=== PATIENT | female | born 1950 | race Caucasian/White ===

== ENCOUNTER → 2019-08-11 13:03 | Outpatient (BNVA) | payer MEDICARE, BC, SELFPAY | PROVIDERS: PCP Nurse Practitioner Family; Visit Provider Surgery | DX: R10.2 Pelvic and perineal pain (principal); R19.4 Change in bowel habit; Z86.010 Personal history of colon polyps; Z85.118 Personal history of other malignant neoplasm of bronchus and lung; Z90.2 Acquired absence of lung [part of] | CPT/HCPCS: 99202; 99213 ==

== ENCOUNTER → 2019-10-20 13:32 | Outpatient (BNVA) | payer MEDICARE, BC, SELFPAY | PROVIDERS: PCP Nurse Practitioner Family; Referring Provider Nurse Practitioner Family; Visit Provider Surgery | DX: R19.4 Change in bowel habit (principal); Z86.010 Personal history of colon polyps; Z72.0 Tobacco use; K21.9 Gastro-esophageal reflux disease without esophagitis; I10 Essential (primary) hypertension | CPT/HCPCS: 99212; 99441 ==

== ENCOUNTER 2020-03-10 04:43 | Outpatient (CLI) | payer MEDICARE, BC, SELFPAY ==
--- NOTE | 2020-03-10 09:19 | DI.RAD_ITS ---
EXAM: XR HIP PELVIS ADULT BL CLINICAL HISTORY: BILAT HIP PAIN TECHNIQUE: 2D digital imaging was performed. COMPARISON: No exams were available for comparison FINDINGS: Right hip joint space shows mild narrowing. There is mild to moderate periarticular spurring. There is severe narrowing of the left hip joint space. There is prominent periarticular spurring as well as subchondral cyst formation on both sides of the joint. The SI joints and pubic symphysis are unre markable. The sacrum is mainly obscured by overlying bowel gas. IMPRESSION: Severe degenerative changes of the left hip. [id number] degenerative changes of the right hip.
== END 2020-03-10 05:03 ==
PROVIDERS: PCP Nurse Practitioner Family; Visit Provider Neuromusculoskeletal Medicine & OMM
DX: M16.0 Bilateral primary osteoarthritis of hip (principal)
CPT/HCPCS: 73521

== ENCOUNTER 2020-03-20 14:11 | Outpatient (CLI) | payer MEDICARE, BC, SELFPAY ==
--- NOTE | 2020-03-20 11:15 | DI.RAD_ITS ---
EXAM: XR PELVIS AP CLINICAL HISTORY: left hip DJD; preop planning. TECHNIQUE: 2D digital imaging was performed. COMPARISON: No exams were available for comparison FINDINGS: BONES: No acute fracture is present. No bony destructive lesion is seen. JOINTS: No dislocation present. Marked degenerative changes are seen in the left hip characterized by joint space narrowing, subchondral sclerosis and cysts and periarticular spurring. Right hip is wel l maintained. SOFT TISSUE: Normal. IMPRESSION: Marked osteoarthritis of the left hip. DATA REPOSITORY: RADIATION DOSE DELIVERED:
== END 2020-03-20 14:31 ==
PROVIDERS: PCP Nurse Practitioner Family; Referring Provider Nurse Practitioner Family; Visit Provider Student in an Organized Health Care Education/Training Program
DX: M16.12 Unilateral primary osteoarthritis, left hip (principal); Z01.818 Encounter for other preprocedural examination
CPT/HCPCS: 72170

== ENCOUNTER 2020-04-27 05:09 | Outpatient (CLI) | payer MEDICARE, BC, SELFPAY ==
[2020-04-27 10:51] LABS: Abs Immature Grans 0.02 10^3/uL (0.0-0.06); Absolute Basophil Count 0.05 10^3/uL (0.0-0.2); Absolute Eosinophil Count 0.19 10^3/uL (0.0-0.7); Absolute Lymphocyte Count 1.32 10^3/uL (1.2-3.4); Absolute Monocyte Count 0.38 10^3/uL (0.1-0.8); Absolute Neutrophil Count 3.88 10^3/uL (1.2-6.7); Basophils % 0.9; Eosinophils % 3.3; HCT 37.4 % (36.0-46.0); HGB 12.4 g/dL (11.2-15.7); Immature Grans % 0.3; Lymphocytes % 22.6; MCH 29.3 pg (27.0-33.0); MCHC 33.2 % (32.0-36.0); MCV 88.4 fL (80-95); MPV 8.6 fL (8.0-11.0); Monocytes % 6.5; Neutrophils % 66.4; Nucleated RBC 0 %; Platelet Count 314 10^3/uL (130-400); RBC 4.23 10^6/uL (3.93-5.22); RDW 13.3 % (11.7-14.6); RDW-SD 43.3 fL; WBC 5.84 10^3/uL (4.4-10.8)
[2020-04-27 11:24] LABS: ALT 21 U/L (14-59); AST 15 U/L (15-37); Albumin 3.6 g/dL (3.4-5.0); Alkaline Phosphatase 142 U/L (46-116); Anion Gap 5.4 mmol/L (3-11); BUN 9 mg/dL (7-18); Bilirubin, Total 0.3 mg/dL (0.2-1.0); CO2 26.6 mmol/L (21.0-32.0); CREATININE 0.89 mg/dL (0.55-1.02); Calcium 9.5 mg/dL (8.5-10.1); Chloride 102 mmol/L (98-107); FREE T4 1.05 ng/dL (0.76-1.46); Glucose 107 mg/dL (74-106); Magnesium 2.1 mg/dL (1.8-2.4); Sodium 134 mmol/L (136-145); TSH 0.96 uIU/mL (0.36-3.74); Total Protein 6.5 g/dL (6.4-8.2)
== END 2020-04-27 05:29 ==
PROVIDERS: PCP Nurse Practitioner Family; Visit Provider Internal Medicine Medical Oncology
DX: C34.91 Malignant neoplasm of unspecified part of right bronchus or lung (principal); R93.89 Abnormal findings on diagnostic imaging of other specified body structures
CPT/HCPCS: 36415; 80053; 83735; 84439; 84443; 85025

== ENCOUNTER 2020-05-08 11:35 | Outpatient (REF) | payer MEDICARE, BC, SELFPAY ==
[2020-05-08 12:28] LABS: Bilirubin Negative (Negative); Blood Trace-lysed (Negative); Clarity Clear (Clear); Glucose Negative (Negative); Ketones Negative (Negative); Leukocyte Esterase Trace (Negative); Nitrite Negative (Negative); Specific Gravity 1.015 (1.005-1.025); Urobilinogen 0.2 EU/dL (Up TO 0.2)
[2020-05-08 12:41] LABS: Crystals Negative HPF (Negative); Epithelial Cells Rare HPF (Negative); Mucus Negative (Negative)
[2020-05-08 12:42] LABS: Bacteria Many HPF (Negative); C & S Indicated? Yes
== END 2020-05-08 11:55 ==
LOC: LBN 11:35
PROVIDERS: PCP Nurse Practitioner Family; Visit Provider Internal Medicine Medical Oncology
DX: C34.91 Malignant neoplasm of unspecified part of right bronchus or lung (principal); R30.0 Dysuria
CPT/HCPCS: 87077; 81003; 81015; 87086; 87186

== ENCOUNTER 2020-05-29 01:35 | Outpatient (RCR) | payer MEDICARE, BC, SELFPAY ==
[2020-05-22 10:58] LABS: Abs Immature Grans 0.01 10^3/uL (0.0-0.06); Absolute Basophil Count 0.01 10^3/uL (0.0-0.2); Absolute Eosinophil Count 0.02 10^3/uL (0.0-0.7); Absolute Lymphocyte Count 0.95 10^3/uL (1.2-3.4); Absolute Monocyte Count 0.36 10^3/uL (0.1-0.8); Absolute Neutrophil Count 1.81 10^3/uL (1.2-6.7); Basophils % 0.3; Bilirubin Negative (Negative); Blood Trace-lysed (Negative); Clarity Clear (Clear); Eosinophils % 0.6; Glucose Negative (Negative); HCT 32.4 % (36.0-46.0); HGB 10.6 g/dL (11.2-15.7); Immature Grans % 0.3; Ketones Negative (Negative); Leukocyte Esterase Trace (Negative); Lymphocytes % 30.1; MCH 29.6 pg (27.0-33.0); MCHC 32.7 % (32.0-36.0); MCV 90.5 fL (80-95); MPV 8.4 fL (8.0-11.0); Monocytes % 11.4; Neutrophils % 57.3; Nitrite Negative (Negative); Nucleated RBC 0 %; Platelet Count 194 10^3/uL (130-400); RBC 3.58 10^6/uL (3.93-5.22); RDW 13.5 % (11.7-14.6); RDW-SD 44.2 fL; Urobilinogen 0.2 EU/dL (Up TO 0.2); WBC 3.16 10^3/uL (4.4-10.8); pH 5.5 (5-8)
[2020-05-22] MEDS: Normal Saline Flush 10 ML SYR IVP (11:00)
[2020-05-22] MEDS: Heparin 500 UNITS/5 ML SYRINGE IV (11:01)
[2020-05-22 11:22] LABS: Bacteria Few HPF (Negative); Epithelial Cells Moderate HPF (Negative); Other Cells Few Transitional (Negative)
[2020-05-22 11:23] LABS: C & S Indicated? No/Sq. Contamination; Casts Negative LPF (Negative); Crystals Negative HPF (Negative); Mucus Heavy (Negative)
[2020-05-22 11:27] LABS: ALT 26 U/L (14-59); AST 20 U/L (15-37); Albumin 3.3 g/dL (3.4-5.0); Alkaline Phosphatase 118 U/L (46-116); Anion Gap 6.6 mmol/L (3-11); BUN 9 mg/dL (7-18); Bilirubin, Total 0.3 mg/dL (0.2-1.0); CO2 26.4 mmol/L (21.0-32.0); CREATININE 0.78 mg/dL (0.55-1.02); Calcium 9.1 mg/dL (8.5-10.1); Chloride 103 mmol/L (98-107); FREE T4 0.99 ng/dL (0.76-1.46); Glucose 101 mg/dL (74-106); Magnesium 2.1 mg/dL (1.8-2.4); Potassium 4.1 mmol/L (3.5-5.1); Sodium 136 mmol/L (136-145); TSH 1.09 uIU/mL (0.36-3.74); Total Protein 6.5 g/dL (6.4-8.2)
[2020-05-29] MEDS: Normal Saline Flush 10 ML SYR IVP (07:50)
[2020-05-29 07:54] LABS: Abs Immature Grans 0.01 10^3/uL (0.0-0.06); Absolute Basophil Count 0.03 10^3/uL (0.0-0.2); Absolute Eosinophil Count 0.04 10^3/uL (0.0-0.7); Absolute Lymphocyte Count 0.93 10^3/uL (1.2-3.4); Absolute Monocyte Count 0.38 10^3/uL (0.1-0.8); Absolute Neutrophil Count 1.48 10^3/uL (1.2-6.7); Eosinophils % 1.4; HCT 34.1 % (36.0-46.0); HGB 11.3 g/dL (11.2-15.7); Immature Grans % 0.3; Lymphocytes % 32.4; MCH 29.8 pg (27.0-33.0); MCHC 33.1 % (32.0-36.0); MPV 8.4 fL (8.0-11.0); Monocytes % 13.2; Neutrophils % 51.7; Nucleated RBC 0 %; Platelet Count 272 10^3/uL (130-400); RBC 3.79 10^6/uL (3.93-5.22); RDW 14.6 % (11.7-14.6); RDW-SD 46.5 fL; WBC 2.87 10^3/uL (4.4-10.8)
[2020-05-29 08:23] LABS: ALT 32 U/L (14-59); AST 18 U/L (15-37); Albumin 3.3 g/dL (3.4-5.0); Alkaline Phosphatase 121 U/L (46-116); Anion Gap 7.1 mmol/L (3-11); BUN 9 mg/dL (7-18); Bilirubin, Total 0.4 mg/dL (0.2-1.0); CO2 25.9 mmol/L (21.0-32.0); CREATININE 0.76 mg/dL (0.55-1.02); Calcium 9.2 mg/dL (8.5-10.1); Chloride 104 mmol/L (98-107); FREE T4 1.07 ng/dL (0.76-1.46); Glucose 98 mg/dL (74-106); Magnesium 2.1 mg/dL (1.8-2.4); Potassium 4.2 mmol/L (3.5-5.1); Sodium 137 mmol/L (136-145); TSH 1.32 uIU/mL (0.36-3.74); Total Protein 6.5 g/dL (6.4-8.2)
== END 2020-06-08 23:59 | disposition home or self-care (01) ==
LOC: INF 01:35
PROVIDERS: PCP Nurse Practitioner Family; Visit Provider Internal Medicine Medical Oncology
DX: C34.91 Malignant neoplasm of unspecified part of right bronchus or lung (principal); R93.89 Abnormal findings on diagnostic imaging of other specified body structures; Z45.2 Encounter for adjustment and management of vascular access device
CPT/HCPCS: 36591; 80053; 81003; 81015; 83735; 84439; 84443; 85025

== ENCOUNTER 2020-06-12 11:25 | Outpatient (CLI) | payer MEDICARE, BC, SELFPAY ==
--- NOTE | 2020-06-12 | DI.CT_ITS ---
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 TECHNIQUE: Multi planar reconstructions were performed. CONTRAST MATERIAL: Omnipaque 350; 70 cc COMPARISON: CT CHEST WITH CONTRAST from 03/14/2015 FINDINGS: CHEST: LUNGS: There has been interval right surgery with mildly decreased right hemithoracic volume when com pared to March 2015 CT scan. There is a spiculated noncalcified nodule in the right upper lobe reg ion which measures 6 x 6 millimeters, suspicious for recurrence or new lesion. No other right lung n odules but there is some infiltrate in the right base and a small amount of right pleural effusion or thickening of right pleura which is concerning but without obvious loculation. No new focal finding s in the opposite-left lung and no pleural effusion on the left side. Some nodularity in the posteri or wall of right mainstem bronchus is noted. Lesion mainstem bronchus is clear. Trachea unremarkabl e. MEDIASTINUM: No gross hilar nor mediastinal adenopathy. Possible subtle nodule right thyroid lobe. CARDIAC: Heart size is normal. There is no pericardial effusion.Caliber of the thoracic aorta is wit hin normal limits.. Distal tip of right sided Port-A-Cath is in the upper right atrium. VISUALIZED UPPER ABDOMEN:Thickening of both adrenal glands is noted. However, the this is unchanged from 2015 and therefore most probably bilateral benign adenomas as opposed to metastatic disease. Sm all cyst is again noted in superior aspect of the right kidney. The entire kidneys are not included in the field of view. OSSEOUS: No significant osseous lesions.No rib destruction evident. IMPRESSION: 1. Compared to March 2015 (which is the most recent CT scan in our PACS) there has been interval ri ght hemithoracic surgery. There is a small 6 millimeters spiculated nodule in the right upper lobe r egion. Also diffuse pleural thickening in the lower right hemithorax noted, not associated with rib destruction and no large pleural effusion. Mild infiltrate in the right lung base also noted. No gr oss lymphadenopathy evident. 2. Distal tip of the right sided Port-A-Cath is in the upper RA. 3. Stable adrenal nodules which are unchanged from 2015 and therefore unlikely to be benign adenomas (as opposed to metastatic lesions). 4. No lytic osseous lesions identified. RADIATION DOSE DELIVERED: 488.14mGy.cm Total DLP DATA REPOSITORY: All CT scans at this facility are submitted to the National Radiology Data Registry (NRDR) Dose Index Registry (DIR) with the [employer] ([employer]). RADIATION OPTIMIZATION: All CT scans at this facility use at least one of these dose optimization te chniques: automated exposure control; mA and/or kV adjustment per patient size (includes targeted exa ms where dose is matched to clinical indication); or iterative reconstruction.
[2020-06-12] MEDS: Omnipaque 350 MG/ML 100 ML BTL IV (14:41)
== END 2020-06-12 11:45 ==
PROVIDERS: PCP Neuromusculoskeletal Medicine & OMM; Visit Provider Internal Medicine Medical Oncology
DX: C34.91 Malignant neoplasm of unspecified part of right bronchus or lung (principal); J91.0 Malignant pleural effusion; R91.1 Solitary pulmonary nodule; R91.8 Other nonspecific abnormal finding of lung field
CPT/HCPCS: 36591; 71260; 82565; J3490

== ENCOUNTER 2020-06-15 01:29 | Outpatient (CLI) | payer MEDICARE, BC, SELFPAY ==
--- NOTE | 2020-06-15 08:45 | DI.RAD_ITS ---
EXAM: RF JOINT INJECTION FLUORO GUID CLINICAL HISTORY: L HIP PAIN, LT HIP INJECTION, DJD,PRIMARY OA,M16.12 TECHNIQUE: 2D and realtime digital imaging was performed. CONTRAST MATERIAL: Refer to procedure report. COMPARISON: No exams were available for comparison FINDINGS: Fluoroscopy was provided for Dr. Ambriz during left hip therapeutic injection.. Please refer to the procedure report for complete details. Fluoro time: 2 seconds. IMPRESSION:
--- NOTE | 2020-06-15 13:21 | W.PROCNOTE ---
Date of service: 06/15/20 Time of Service: 13:22 Procedure Note Date of procedure: 06/15/20 Procedure: Left Hip Injection with Fluoroscopic Guidance Surgeon/Proceduralist/Physician: César Ambriz Procedure Diagnosis: Left Hip Osteoarthritis Procedure Indications: Sarah has had persistent pain of the LEFT hip and groin. Noninvasive measures have been tried. To serve as both diagnostic and therapeutic, an injection under fluoroscopy was recommended. I had discussed the risks of the procedure and the patient elected to proceed. Procedure Description: Sarah was greeted in the flouroscopy room. The correct side was identified and the consent was reviewed with the patient and signed. The patient was then placed in the supine position on the fluoroscopy table. The LEFT hip was then prepped with Chloraprep. The anterolateral injection starting point was identiifed by bony landmarks and fluoroscopy. The skin and soft tissue in the tract of the injection was anesthetized with 1% Lidocaine. A spinal needle was then inserted deep into the hip joint at the level of the lateral femoral neck under fluoroscopic guidance. A small amount of Omnipaque solution was injected to confirm intraarticular placement. Once confirmed, the hip was injected with 6cc of 0.5% Bupivicaine and 80mg of Depo-Medrol. A bandaid was placed on the injection site. The patient tolerated the procedure well and noted improvement in pre-injection pain.
[2020-06-15] MEDS: Bupivacaine 0.5% Pres-Free 10 ML VIAL 6 ML IJ (14:42)
[2020-06-15] MEDS: methylPREDNISolone ACETATE 80 MG/ML VIAL IM (14:42)
[2020-06-15] MEDS: Omnipaque 300 MG/ML 10 ML BTL IJ (14:43)
== END 2020-06-15 01:49 ==
PROVIDERS: PCP Neuromusculoskeletal Medicine & OMM; Visit Provider Student in an Organized Health Care Education/Training Program
DX: M16.12 Unilateral primary osteoarthritis, left hip (principal); M25.552 Pain in left hip; R10.32 Left lower quadrant pain
CPT/HCPCS: 20610; 77002; J1040

== ENCOUNTER 2020-06-19 01:54 | Outpatient (RCR) | payer MEDICARE, BC, SELFPAY ==
--- OUTSIDE RECORDS SUMMARY | 2020-06-12 13:57 | XMS_ITS ---
:1950 Author Care Team Providers Name Role Phone SANJANA FLAHERTY MD Thoracic Surgeon [phone] ARON BAPTISTE APRN Clipper Machine Operator [phone] BUD VILLA MD Clipper Machine Operator [phone] LOVE LAND DO Primary Care Provider [phone] AGNIESZKA DOTY MD Court Clerk [phone] NATHANIEL KIRKPATRICK MD Orthopedic Surgeon [phone] Allergies Code Code System Name Reaction Severity Status Onset 723 RxNorm Amoxicillin Vomiting Severe Deactivated 8 [id number] RxNorm Augmentin Vomiting ? Active ? Medications Name Status Start Date Stop Date ? ? Aleve 220 mg capsule Active ? Not availab le as needed. amoxicillin 875 mg tablet Completed ? 2019 amoxicillin 875 mg-potassium Completed ? clavulanate 125 mg tablet apple cider vinegar Active ? Not availabl e daily azithromycin 250 mg tablet Completed ? 12/19 bacitracin 500 unit/gram eye Completed ? ointment bisacodyl 5 mg tablet,delayed Active ? No t available release bupropion HCl XL 150 mg 24 hr tablet, extended release Active ? Not available TAKE 1 TABLET BY MOUTH EVERY DAY calcium 1,250 mg tablet Active ? Not avai lable Take 1 tablet every day by oral route. ciprofloxacin 500 mg tablet Completed ? 07/10 doxycycline hyclate 100 mg tablet Completed ? 07/27/2019 Fish Oil Active ? Not available One capsule daily fluticasone propionate 50 Active ? Not av ailable mcg/actuation nasal spray,suspension Glucosamine Chondroitin Active ? Not avai lable 2 capsules po daily Havrix (PF) 1,440 KEERTHI unit/mL Completed ? 07/27/2019 intramuscular syringe ibuprofen 600 mg tablet Completed ? 07/27/19 20 ICaps AREDS Active ? Not available One capsule daily Keflex 500 mg capsule Completed ? 06/18/2019 Take 1 capsule every 6 hours by oral route for 7 days. metoprolol succinate ER 25 mg tablet,extended release 24 hr Acti ve ? Not available TAKE 1 TABLET BY [facility] EVERY DAY AT BEDTIME Multivitamin 50 Plus Active ? Not availab le one tablet daily mupirocin 2 % topical ointment Active 07/27/2019 N ot available Ocuvite Adult 50 Plus 250 mg-5 mg-1 mg capsule Completed ? 01/05/2018 Take 1 capsule every day by oral route. olopatadine 0.1 % eye drops Completed ? 07/10 Bryant 3-6-9 1,200 mg capsule Completed ? Take 1 capsule every day by oral route. oxycodone 5 mg tablet Completed ? 11/10/2017 polyethylene glycol 3350 17 Active ? Not available gram/dose oral powder prednisolone acetate 1 % eye Completed ? drops,suspension PreviDent 5000 Dry Mouth 1.1 % Active ? N ot available gel Probiotic Active ? Not available 1 po daily prochlorperazine maleate 10 mg Active ? N ot available tablet Shingrix (PF) 50 mcg/0.5 mL Completed ? 12/09 intramuscular suspension, kit sulfamethoxazole 800 mg-trimethoprim 160 mg tablet Active ? Not available TAKE ONE TABLET BY MOUTH TWICE A DAY FOR 5 DAYS triamcinolone acetonide 0.1 % Active ? No t available topical cream valacyclovir 1 gram tablet Completed ? 01/05 one tablet daily as needed per Dr. Dumont valacyclovir 500 mg tablet Active ? Not a vailable Valtrex Completed ? 06/18/2019 as needed vitamin B complex Active ? Not available one tablet daily Vitamin C Active ? Not available 500mg 1 tablet once daily Vitamin D3 Active ? Not available 5000 units daily Zofran ODT 4 mg disintegrating tablet Completed ? 04/15/2018 Take 1 tablet 6 times a day by oral route. 1 tablet by mouth every 6 hours as needed for nausea and vomiti ng Problems Name Status Onset Date Source ? Malignant Tumor of Lung Active 08/26/2018 ? 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 Impetigo Unknown 10/20/2018 ? Anxiety Active 10/11/2019 ? Squamous Cell Carcinoma Active 02/22/2020 ? Tobacco Dependence Syndrome Active ? Hist ory Hypertensive Disorder Active ? History Cough Unknown ? History Adult Health Examination Unknown ? History Screening for Osteoporosis Unknown ? Histo ry Procedure by Method Unknown ? History Bilateral Carpal Tunnel Syndrome Active ? History Procedures Date Name Performed by ? 03/21/2020 Total Replacement of Hip Information not available Notes: Left 02/21/2020 Mohs Surgery Information not avai lable 10/21/2018 Orthopedic Surgery Information not avai lable Notes: Kayleen Goff's release 09/11/2018 Lobectomy of Lung Information not avai lable 12/07/2014 Colonoscopy Information not avai lable 06/09/2006 Procedure on Bladder Information not maria eugenia ilable Notes: Bladder suspension with mesh 06/09/2002 Hemorrhoidectomy Information not avai lable 06/09/1989 Oophorectomy Information not avai lable Notes: right 06/09/1980 Cervical Arthrodesis by Posterior Techni que Information not available Notes: C5-6 06/09/1955 Appendectomy Information not avai lable 06/09/1953 Tonsillectomy Information not avai lable 06/09/1953 Adenoidectomy Information not avai lable ? Partial Repair of Rotator Cuff Informati on not available Notes: right 2001 and 2006 ? Orthopedic Surgery Information not avai lable Notes: Drainage hematoma 201405/25/2018 MAMMO, Screening, Tomosynthesis, [facility] Radiology (Internal) Bilateral [address] [place] [address] (Work Place) 05/25/2018 LDCT, Chest, for Lung Cancer Screening [facility] Radiology (Internal) [address] [place] [address] (Work Place) 07/29/2018 PET-CT, Skull Base to Mid-thigh Scan [facility] (Imaging/Xray) [place] [address] (Work Place) 08/24/2018 MRI, Brain, W/wo Contrast [facility] Radiology (Internal) [address] [place] [address] (Work Place) 08/26/2018 US, Echocardiogram [facility] (Internal) [address] [place] [address] (Work Place) 10/07/2018 XR, Wrist, 3 or More View [facility] Radiology (Internal) [address] [place] [address] (Work Place) 03/31/2019 CT, Chest, W/o Contrast [facility] Radiology (Internal) [address] [place] [address] (Work Place) 06/18/2019 MAMMO, Screening, Tomosynthesis, [facility] Radiology (Internal) Bilateral [address] [place] [address] (Work Place) 07/27/2019 DEXA, Axial Skeleton [facility] Radiology (Internal) [address] [place] [address] (Work Place) 08/09/2019 US, Breast [facility] Radiology (Internal) [address] [place] [address] (Work Place) 10/06/2019 CT, Chest, W[facility] [address] [place] [address] (Work Place) 10/11/2019 US, Breast [facility] Radiology (Internal) [address] [place] [address] (Work Place) 12/20/2019 XR, Chest, 2 View [facility] Radiology (Internal) [address] [place] [address] (Work Place) 12/20/2019 XR, Ribs, Unilateral [facility] Radiology (Internal) [address] [place] [address] (Work Place) 12/20/2019 XR, Hip, Unilateral, 2 or 3 View [facility] Radiology (Internal) [address] [place] [address] (Work Place) 03/08/2020 XR, Hip, Bilateral [facility] Radiology (Internal) [address] [place] [address] (Work Place) 03/27/2020 PET-CT, Skull Base to Mid-thigh Scan [facility] Radiology (Internal) [address] [place] [address] (Work Place) Results Lab Results Date Name Specimen Result Interpretation Description Value Range Status Address ? 01/17/2020 Pathology Study TISS ? Report (see below) ? Corrected [facility] (Internal) : [address] 05/17/2019 Lipid Panel, S High Chol 254 mg/dL 50- Laverne l [place] Serum 200 Country mg/ Hospital L ab dL (Internal) : [address] ? ? S - Trig 73 mg/dL 10- Final [place] 150 Country mg/ Hospital L ab dL (Internal) : [address] ? ? S High Hdl 91 mg/dL 40- Final [place] 60 Country mg/ Hospital L ab dL (Internal) : [address] ? ? S High Ldl 148 mg/dL 0-1 Final [place] 30 Country mg/ Hospital L ab dL (Internal) : [address] 05/17/2019 CMP, Serum or S - g/r 101 mg/dL 74- Fin al [place] Plasma 106 Country mg/ Hospital L ab dL (Internal) : [address] ? ? S - Bun 13 mg/dL 7-1 Final [place] 7 Country mg/ Hospital L ab dL (Internal) : [address] ? ? S - Crea 0.70 mg/dL 0.5 Final [place] 2-1 Country .04 Hospital L ab mg/ (Internal) : dL [address] ? ? S - Ca 9.5 mg/dL 8.4 Final [facility] -10 Country .2 Hospital L ab mg/ (Internal) : dL [address] ? ? S - Na 138 mmol/L 137 Final [facility] -14 Country 5 Hospital L ab mmo (Internal) : l/L [address] ? ? S - K 4.2 mmol/L 3.5 Final [facility] -5. Country 1 Hospital L ab mmo (Internal) : l/L [address] ? ? S - Cl 106 mmol/L 98- Final [facility] 107 Country mmo Hospital L ab l/L (Internal) : [address] ? ? S - Tco2 25.0 mmol/L 22. Final [place] 0-3 Country 0.0 Hospital L ab mmo (Internal) : l/L [address], [place] ? ? S - Tp 6.8 g/dL 6.3 Final [place] -8. Country 2 Hospital L ab g/d (Internal) : L [address] [place] ? ? S - Alb 3.9 g/dL 3.5 Final [place] -5. Country 0 Hospital L ab g/d (Internal) : L [address] [place] ? ? S - Tbil 0.4 mg/dL 0.2 Final [place] -1. Country 3 Hospital L ab mg/ (Internal) : dL [address], [place] ? ? S - Alp 118 U/L 38- Final [place] 126 Country U/L Hospital L ab (Internal) : [address] [place] ? ? S - Alt (Sgpt) 13 U/L 9-5 Final [place] 2 Country U/L Hospital L ab (Internal) : [address] [place] ? ? S - Ast (Sgot) 25 U/L 14- Final [place] 36 Country U/L Hospital L ab (Internal) : [address] 05/17/2019 CBC W/ Auto BLD Low Wbc 3.6 10*3/uL 5.0 [facility] Diff -10 Country .0 Hospital L ab 10* (Internal) : 3/u [address] [place] ? ? BLD - Rbc 4.61 4.1 Final [place] 10*6/uL 0-5 Country .30 Hospital L ab 10* (Internal) : 6/u [address] [place] ? ? BLD - Hgb 13.6 g/dL 12. Final [place] 0-1 Country 6.0 Hospital L ab g/d (Internal) : L [address] [place] ? ? BLD - Hct 41.4 % 37. Final [place] 0-4 Country 7.0 Hospital L ab % (Internal) : [address] [place] ? ? BLD - Mcv 89.8 fL 80. Final [place] 0-9 Country 6.0 Hospital L ab fL (Internal) : [address] ? ? BLD - Mch 29.5 pg 26. Final [place] 0-3 Country 2.0 Hospital L ab pg (Internal) : [address] ? ? BLD - Mchc 32.9 g/dL 31. Final [place] 0-3 Country 5.0 Hospital L ab g/d (Internal) : L [address] ? ? BLD - Rdw 13.2 % 11. Final [place] 5-1 Country 4.5 Hospital L ab % (Internal) : [address] ? ? BLD - Plt 256 10*3/uL 130 Final [facility]45 [facility] 0 Hospital L ab 10* (Internal) : 3/u [address] ? ? BLD - Anc 1.59 ? Final [place] 10*3/uL [facility] L ab (Internal) : [address] ? ? BLD - Neutro 43.9 % 40. Final [place] 0-7 Country 5.0 Hospital L ab % (Internal) : [address] ? ? BLD - Lymph 42.7 % 20. Final [place] 0-5 Country 0.0 Hospital L ab % (Internal) : [address] ? ? BLD - Osborne 7.8 % 2.0 Final [place] -10 Country .0 Hospital L ab % (Internal) : [address] ? ? BLD - Eos 4.2 % 1.0 Final [place] -6. Country 0 % Hospital L ab (Internal) : [address] ? ? BLD High Baso 1.1 % 0.0 Final [place] -1. Country 0 % Hospital L ab (Internal) : [address] ? ? BLD - Ig 0.3 % 0.0 Final [place] -0. Country 9 % Hospital L ab (Internal) : [address] 10/20/2018 Methicillin NASAL - Final microbiolog ? Fin al [facility] Resistant y results Coun try Staphylococcus Ho spital Lab Aureus, (Internal ): Culture, Nasal [address] 08/05/2018 Fecal Occult ? Occult negative ? ? P_nc Primary Blood X 3, Blood 1 Care Stool [place] ns: [address], [place] ? ? ? Occult negative ? ? P_nc Pr imary Blood 2 Care [place]: [address], [place] ? ? ? Occult negative ? ? P_nc Pr imary Blood 3 Care [place]: [address], [place] 07/29/2018 CBC W/ Auto BLD - Wbc 6.4 10*3/uL 5.0 Fin [facility] Diff -10 Country .0 Hospital L ab 10* (Internal) : 3/u [address], [place] ? ? BLD - Rbc 4.55 4.1 Final [place] 10*6/uL 0-5 Country .30 Hospital L ab 10* (Internal) : 6/u [address], [place] ? ? BLD - Hgb 13.4 g/dL 12. Final [place] 0-1 Country 6.0 Hospital L ab g/d (Internal) : L [address], [place] ? ? BLD - Hct 41.3 % 37. Final [place] 0-4 Country 7.0 Hospital L ab % (Internal) : [address] , [place] ? ? BLD - Mcv 90.8 fL 80. Final [place] 0-9 Country 6.0 Hospital L ab fL (Internal) : [address] , [place] ? ? BLD - Mch 29.5 pg 26. Final [place] 0-3 Country 2.0 Hospital L ab pg (Internal) : [address] , [place] ? ? BLD - Mchc 32.4 g/dL 31. Final [place] 0-3 Country 5.0 Hospital L ab g/d (Internal) : L [address] , [place] ? ? BLD - Rdw 13.8 % 11. Final [place] 5-1 Country 4.5 Hospital L ab % (Internal) : [address] , [place] ? ? BLD - Plt 257 10*3/uL 130 Final [place] -45 Country 0 Hospital L ab 10* (Internal) : 3/u [address] [place] ? ? BLD - Anc 3.51 ? Final [place] 10*3/uL [facility] Hospital L ab (Internal) : [address] , [place] ? ? BLD - Neutro 54.9 % 40. Final [facility] 0-7 Country 5.0 Hospital L ab % (Internal) : [address] ? ? BLD - Lymph 35.8 % 20. Final [facility] 0-5 Country 0.0 Hospital L ab % (Internal) : [address] ? ? BLD - [place] 6.4 % 2.0 Final [facility] -10 [facility] .0 Hospital L ab % (Internal) : [address] ? ? BLD - Eos 1.9 % 1.0 Final [facility] -6. Country 0 % Hospital L ab (Internal) : [address] ? ? BLD - Baso 0.8 % 0.0 Final [facility] -1. Country 0 % Hospital L ab (Internal) : [address] ? ? BLD - Ig 0.2 % 0.0 Final [place] -0. Country 9 % Hospital L ab (Internal) : [address] 07/29/2018 Creatinine, S - Crea 0.70 mg/dL 0.5 [place]ne [place] Serum or Plasma 2-1 C ountry .04 Hospital L ab mg/ (Internal) : dL [address] 07/29/2018 Bun (Blood Urea S - Bun 11 mg/dL 7-1 Fi nal [place] Nitrogen), 7 Countr y Serum or Plasma mg/ H ospital Lab dL (Internal) : [address] 07/29/2018 Prothrombin BLD - Pt 9.3 S 9.1 Final N orth Time -11 Country .7 Hospital L ab S (Internal) : [address] ? ? BLD - Inr 0.9 ? Final [facility] (Internal) : [address] 05/25/2018 Visual Acuity ? R Eye 20/20 ? ? P_nc Primary Corrected Care [place]: [address], [place] ? ? ? L Eye 20/15 ? ? P_nc Prima ry Corrected Care [place]: [address], [place] 11/10/2017 TSH, Serum or S - Tsh 0.93 0.4 Final [place] Plasma u[IU]/mL 7-4 Country .68 Hospital L ab u[I (Internal) : U]/ [address] ? Venipuncture ? Location Left ? ? P _nc Primary Antecubital Care [place]: [address], [place] ? ? ? Needle 21g ? ? P_nc Prim branden Vacutainer Care [place]: [address], [place] ? ? ? Number of 1 ? ? P_nc P rimary Attempts Care [place]: [address], [place] ? ? ? Successful Yes ? ? P_nc Primary Care [place] ns: [address], [place] ? ? ? Dressing Pressure ? ? P_nc Primary Band-aid Care Applied [place] angel[place] ns: [address], [place] ? ? ? Initials DG ? ? P_nc Pr imary Care [place] ns: [address], [place] ? Urinalysis, ? Color Yellow ? ? P_nc Primary Dipstick, Care Reflex Micro [place] ns: [address], [place] ? ? ? Appearance Clear ? ? P_nc Primary Care [place] ns: [address], [place] ? ? ? Glucose Normal ? ? P_nc Giovanna xiang Care [place] ns: [address], [place] ? ? ? Bilirubin Negative ? ? P_nc Primary Care [place] ns: [address], [place] ? ? ? Ketones Negative ? ? P_nc P rimary Care [place] ns: [address], [place] ? ? ? Specific 1.025 ? ? P_nc Pr imary [place] Care [place]: [address], [place] ? ? ? Blood Moderate ? ? P_nc Giovanna xiang Care [place] ns: [address], [place] ? ? ? Ph 5.0 ? ? P_nc Prima ry Care [place] ns: [address], [place] ? ? ? Protein Negative ? ? P_nc P rimary Care [place] ns: [address], [place] ? ? ? Urobilinog 0.2 ? ? P_nc Primary en Care [place] ns: [address], [place] ? ? ? Nitrite negative ? ? P_nc P rimary Care [place] ns: [address], [place] ? ? ? Leukocyte Trace ? ? P_nc P rimary Esterase Care [place]: [address], [place] Past Encounters 05/10/2020 Pain of Left Hip Joint; Antalgic Gait Erin Aaron, PT: [address] [facility], [address], [place] [address], Ph. 03/27/2020 Malignant Tumor of Lung; Tomography - Ch est Abnormal Agnieszka Doty MD: [address] [place] [address], Ph. 02/10/2020 Osteoarthritis of Hip Love Acostakins, DO: [address] [facility], [place] [address], Ph. 01/24/2020 Hypertensive Disorder; Squamous Cell Car cinoma; Anxiety; Pain of Left Hip Joint Alba Randle, RADIATION OFFICER: [address], [place] [address], Ph. 01/14/2020 Wound of Skin; Dysplastic Nevus of Skin Love [employer]ostak[employer], DO: [address], [place] [address], Ph. 01/06/2020 Skin Lesion Margareth Izabela Penn, BLOOD COLLECTOR: [address], [place] [address], Ph. 12/20/2019 Chest Wall Pain; Pain of Left Hip Joint Alba Randle, RADIATION OFFICER: [address], [place] [address], Ph. 10/11/2019 Hypertensive Disorder; Bleeding from Nos e; Anxiety; Heterogeneously Dense Breast Composition; Pain in Face Alba Randle, RADIATION OFFICER: [address], [place] [address], Ph. 10/06/2019 Malignant Tumor of Lung Agnieszka Doty MD: [address], [place] [address], Ph. 09/27/2019 Hypertensive Disorder; Mixed Anxiety and Depressive Disorder; Bleeding from Nose Alba Randle, RADIATION OFFICER: [address], [place] [address], Ph. 07/29/2019 Bud Villa MD: [address] [place] [address], Ph. 07/27/2019 Adult Health Examination; Altered Bowel Function Alba Randle, RADIATION OFFICER: [address], [place] [address], Ph. 06/18/2019 Requires a Hepatitis a Vaccination; Bryan rgic Conjunctivitis; Seasonal Allergic Rhinitis; Screening Mammography; Traveler's Diarrhea Alba Randle RADIATION OFFICER: [address], [place] [address], Ph. 05/24/2019 Hypertensive Disorder; Decreased Blood L eukocyte Number; Malignant Tumor of Lung; Hyperlipidemia; Travel Alba Randle, RADIATION OFFICER: [address], [place] [address], Ph. 05/17/2019 Hypertensive Disorder Alba Randle, RADIATION OFFICER: [address], [place] [address], Ph. 03/31/2019 Malignant Tumor of Lung Agnieszka Doty MD: [address] [place] [address], Ph. 12/25/2018 Jocelin Henry, BET TAKER: [address] [facility], [address], [place] [address], Ph. Social History Tobacco Smoking Status Former Smoker Notes: started age 28, quit 2017 Vaccine List Vaccine Type Hep A, adult 1 mL 1 mL influenza, high dose seasonal 04/09/2018 influenza, injectable, quadrivalent 03/29/2019 03/03/2020 influenza, seasonal, injectable 05/11/2017?0.5 mL pneumococcal conjugate PCV 13 03/20/2015 pneumococcal polysaccharide PPV23 06/09/2015 Tdap 03/24/2015 zoster recombinant 01/03/2020 Plan of Care Reminders Provider Appointments None ? ? recorded. Lab None ? ? recorded. Referral None ? ? recorded. Procedures None ? ? recorded. Surgeries None ? ? recorded. Imaging None ? ? recorded. Vitals 03/27/2020 08:30AM Follow Up 30 Height Weight BMI Blood Pressure 163.83 cm 79.7 kg 29.7 kg/m2 131/81 mm[Hg] 02/10/2020 10:20AM Follow Up 20 Height Weight BMI Blood Pressure 163.83 cm 80.74 kg 30.1 kg/m2 132/74 mm[Hg] 01/24/2020 08:40AM Follow Up 20 Height Weight BMI Blood Pressure 163.83 cm 80.29 kg 29.9 kg/m2 140/72 mm[Hg] 01/14/2020 03:40PM Procedure 20 Height Weight BMI Blood Pressure 163.83 cm 80.29 kg 29.9 kg/m2 120/84 mm[Hg] 01/06/2020 09:00AM Acute 20 Height Weight BMI Blood Pressure 163.83 cm 78.93 kg 29.4 kg/m2 126/76 mm[Hg] 12/20/2019 03:00PM Acute 20 Height Weight BMI Blood Pressure 163.83 cm 79.12 kg 29.5 kg/m2 122/80 mm[Hg] 10/11/2019 02:40PM Follow Up 20 Height Blood Pressure 163.83 cm 137/77 mm[Hg] 10/06/2019 11:00AM Follow Up 30 Height 163.83 cm 09/27/2019 03:00PM Acute 20 Height Blood Pressure 163.83 cm 160/91 mm[Hg] 07/27/2019 11:00AM AWV 40 Height Weight BMI Blood Pressure 163.83 cm 77.56 kg 28.9 kg/m2 142/82 mm[Hg] 06/18/2019 12:40PM Acute 20 Height Weight BMI Blood Pressure 163.83 cm 77.11 kg 28.7 kg/m2 118/68 mm[Hg] 05/24/2019 08:00AM Follow Up 20 Height Weight BMI Blood Pressure 163.83 cm 77.56 kg 28.9 kg/m2 144/90 mm[Hg] 03/31/2019 11:00AM Follow Up 30 Height Weight BMI Blood Pressure 163.83 cm 78.2 kg 29.1 kg/m2 137/83 mm[Hg] 12/07/2018 01:00PM Acute 20 Height Blood Pressure 163.83 cm 102/80 mm[Hg] 10/20/2018 02:40PM Follow Up 20 Height Weight BMI Blood Pressure 163.83 cm 78.02 kg 29.1 kg/m2 128/68 mm[Hg] 10/07/2018 10:15AM Consult 30 Height Weight BMI Blood Pressure 163.83 cm 78.83 kg 29.4 kg/m2 138/82 mm[Hg] 09/30/2018 03:00PM Follow Up 30 Height Weight BMI Blood Pressure 163.83 cm 80.6 kg 30 kg/m2 150/90 mm[Hg] 08/24/2018 10:30AM Follow Up 30 Height Weight BMI Blood Pressure 163.83 cm 79.6 kg 29.7 kg/m2 144/88 mm[Hg] 08/19/2018 08:45AM Follow Up 30 Height Weight BMI Blood Pressure 163.83 cm 80.9 kg 30.1 kg/m2 140/100 mm[Hg] 07/29/2018 11:00AM Consult 45 Height Weight BMI Blood Pressure 163.83 cm 81.2 kg 30.3 kg/m2 140/80 mm[Hg] 07/27/2018 09:40AM Follow Up 40 Height Blood Pressure 163.83 cm 130/82 mm[Hg] 05/25/2018 11:00AM AWV 40 Height Weight BMI Blood Pressure 163.83 cm 78.47 kg 29.2 kg/m2 140/78 mm[Hg] 04/15/2018 02:40PM Acute 20 Height Weight BMI Blood Pressure 163.83 cm 80.1 kg 29.8 kg/m2 126/84 mm[Hg] 01/05/2018 10:30AM Acute 30 Height Weight BMI Blood Pressure 163.83 cm 74.84 kg 27.9 kg/m2 138/78 mm[Hg] 11/10/2017 11:00AM Follow Up 30 Height Weight BMI Blood Pressure 163.83 cm 74.39 kg 27.7 kg/m2 110/80 mm[Hg] 07/11/2017 Height Weight Blood Pressure 163.83 cm 81.65 kg 148/78 mm[Hg] 07/03/2017 Height Weight Blood Pressure 163.83 cm 82.1 kg 146/86 mm[Hg] 05/14/2017 Height Weight Blood Pressure 163.83 cm 80.29 kg (1) 134/84 mm[Hg] (2) 140/100 mm[Hg] 04/07/2017 Height Weight Blood Pressure 163.83 cm 76.2 kg 150/98 mm[Hg]
--- OUTSIDE RECORDS SUMMARY | 2020-06-12 13:58 | XMS_ITS | Encounter Summary ---
:1950 Author Care Team Providers Name Role Phone Mihai Saunders Primary Care Provider [phone] Isi Beasley APRN Machine Group Leader [phone] Bud Hernandez MD Machine Group Leader [phone] Agnieszka Doty MD Tennis Ball Cover Cementer [phone] César Ambriz MD Orthopedic Surgeon [phone] Dallas Ootole MD Thoracic Surgeon [phone] Reason for Visit Left hip pain Assessment and Plan 1. Pain of left hip joint 2. Antalgic gait Discussion Note: None recorded.Patient educational handouts: No information available. Plan of Care Reminders Provider Appointments Aw 20 07/28/2020 Mihai Saunders, 12:40PM DO Lab None ? ? recorded. Referral None ? ? recorded. Procedures None ? ? recorded. Surgeries None ? ? recorded. Imaging None ? ? recorded. Medications Name Start Date ? ? Aleve 220 mg capsule ? as needed. apple cider vinegar ? daily bisacodyl 5 mg tablet,delayed release ? bupropion HCl XL 150 mg 24 hr tablet, extended release ? TAKE 1 TABLET BY MOUTH EVERY DAY calcium 1,250 mg tablet ? Take 1 tablet every day by oral route. Fish Oil ? One capsule daily fluticasone propionate 50 mcg/actuation nasal ? spray,suspension Glucosamine Chondroitin ? 2 capsules po daily ICaps AREDS ? One capsule daily metoprolol succinate ER 25 mg tablet,extended release 24 hr ? TAKE 1 TABLET BY [facility] EVERY DAY AT BEDTIME Multivitamin 50 Plus ? one tablet daily mupirocin 2 % topical ointment 07/27/2019 Apply 1 application 3 times a day by topical route as directed for 15 days. polyethylene glycol 3350 17 gram/dose oral powder ? PreviDent 5000 Dry Mouth 1.1 % gel ? Probiotic ? 1 po daily prochlorperazine maleate 10 mg tablet ? sulfamethoxazole 800 mg-trimethoprim 160 mg tablet ? TAKE ONE TABLET BY MOUTH TWICE A DAY FOR 5 DAYS triamcinolone acetonide 0.1 % topical cream ? valacyclovir 500 mg tablet ? vitamin B complex ? one tablet daily Vitamin C ? 500mg 1 tablet once daily Vitamin D3 ? 5000 units daily Medications Administered None recorded. Vitals None recorded. Results Lab Results None recorded. Allergies Code Code System Name Reaction Severity Onset 505645 RxNorm Augmentin Vomiting ? ? Problems Name Status Onset Date Source ? Malignant Tumor of Lung Active 08/26/2018 ? 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 Anxiety Active 10/11/2019 ? Squamous Cell Carcinoma Active 02/22/2020 ? Tobacco Dependence Syndrome Active ? Hist ory Hypertensive Disorder Active ? History Bilateral Carpal Tunnel Syndrome Active [...] Information not avai lable Notes: Drainage hematoma 2014 Vaccine List Vaccine Type Hep A, adult 1 mL 1 mL influenza, high dose seasonal 04/09/2018 influenza, injectable, quadrivalent 03/29/2019 03/03/2020 influenza, seasonal, injectable 05/11/2017?0.5 mL pneumococcal conjugate PCV 13 03/20/2015 pneumococcal polysaccharide PPV23 06/09/2015 Tdap 03/24/2015 zoster recombinant 01/03/2020 Social History Tobacco Smoking Status Former Smoker Notes: started age 28, quit 2017 Exposure to Asbestos N Exposure to Chemicals or Toxins N Blind or serious difficulty N Notes: we ars glasses seeing Most Recent Tobacco Use 10/20/2018 Screening Advance directive Y E-cigarette/Vape Status Never used electronic cigarettes Exposure to Silica N Tobacco-years of use 38 Notes: average 0 .5ppd Alcohol intake Occasional Pets? Y Notes: 2 dogs Smokeless Tobacco Status Never used smokeless tobacco Language Difficulties No Deaf or serious difficulty N hearing Smoking - patient's current 30ormorepackyears pack years? Caffeine intake Moderate Notes: diet/decaf soda, one cup of cof fee in the am. Family History Relation Problem Onset Age of Age Notes Sister Chronic obstructive (No N/A (No Note s) lung disease Information) Functional Status No Impairment. Past Encounters 05/10/2020 Pain of Left Hip Joint; Antalgic Gait Erin Walker, PT: [address] [facility], [address], [place] [address], Ph. History of Present Illness ? [facility] Evaluation Reported By: Patient Visit Type: Today's therapy visit: Init ial Evaluation Subjective:: Patient ID check patient ID and date of checked. Subjective ; Patien t repots she has had her second surgery for l merced cancer and is currently undergoing chemoth erapy. She had hip X ray for the left hip s howing severe arthritis. She reports that she has good days and bad days with the hip s ome days she cannot get out of the bed ho wever some days she can get her home based a ctivities done with minimal difficulty Pertinent Past Medical History: Pertinent Past Medical History includes ; bilateral carpal tunnel synd romehtnmalignant tumor of the lungsquamous ce ll carcinomavocal cord trauma Pertinent Medications: Pertinent Medications inclu ashley ; aleve 220 mgapple cider vinegarbisacod yl 5 mgbuproprion 150 mgcalcium 1250 mgfish oi lnetoprolol er 25 mgmultivitamin 50 plus Pertinent Allergies: Pertinent Allergies includes ; Augmentin *Barriers/Needs:: Barriers to Learning none id entified. Special Communication Needs none edith ntified Behavior:: Oriented to time, place, per son, situation. Patient appears cooperative, motivated *Impairment Observations and Tolerance Previous Level of Function ; no impairment to Daily Living:: with adl performance. Curren t Level of Function ; getting out of b ed difficultstairs varies but at worst cannot d ositting is okdoes wake me up if I roll over in bed on top of it Pain Description:: Pain (location, nature, beha vior severity) ; Today is no pain10/[address] and shoots it makes me cry out stabbing se tammie pain with activity Review of Systems None recorded. Physical Exam ? [facility] PT Hip, [facility] PT Assessmen t and Plan Reported By: Patient Hip Palpation:: Palpation: ; Painful in both groin area and at the lateral posterior greate r trochanterno pain at SI or scatic notches bila terally Hip Flexion ROM:: AROM: right:89 degrees, left :119 degrees Hip Extension ROM:: AROM: right:10 degrees Hip Abduction ROM:: AROM: right:23 degrees, left :45 degrees Hip Internal Rotation ROM:: AROM: right:15 degrees Hip External Rotation ROM:: AROM: right:23 degrees Hip Flexion Strength:: Strength: right: 5, 5, , lef t: 5, 5, Hip Extension Strength:: Strength: right: 5, 5, , lef t: 5, 5, Hip Abduction Strength:: Strength: right: 5, 5, , lef t: 5, 5, Hip Adduction Strength:: Strength: right: 5, 5, , lef t: 5, 5, Hip Internal Rotation Strength:: Strength: right: 4, 4 , , left: 5, 5, Hip External Rotation Strength:: Strength: right: 4, 4 , , left: 5, 5, Hip Special Tests:: Hip Special Tests: Fabere/Pa trick Test- right: , + left: , +, Piriformis Te st - right: , + left: , +, Scour Test: right , + left , +, Timothy Test - right: -, - left: -, - Posture: Postural Deviations: ; barry l posture Gait: Gait Deviations ; internal r otation slight of left footdisplacement to the right with less weight bearing time on leftm ild antalgia *Patient Education: Patient Education Provided T lizz ; findings on examanatomy of the hip in re lation to her symptoms *Physical Therapy Assessment: Physical Therapy Assessm ent ; 70 y/o female with severe fluctuating left hip pain demonstrating a 67% impairment on LEFS surve y. Patient is having decreased mobility wi th symptom progression and she is not a candidate for replacement due to cancer di agnosis. Skilled services will address pain a nd use conservative measures to improve hip func tion with anticipated outcome of 50% i mprovement by discharge from therapy servi clotilde. Patient is scheduled to have a steroid injection into the hip tomorrow. Rehab Potentia l: fair rehab potential to reach the esta blished goals. Date of last Evaluation/Progress Summary ; Functional Outcome Measure (FOM): Patient was assessed using the following Functional Outcome Measure ( FOM): Lower Extremity Functional Scale ( LEFS) Short Term Goal(s): Short Term Goals (including time frames) ; STG1 Patient to be independent wi th hep using correct techniques within 4 weeks.ST G2 Patient to be able to ambulate 150 feet ho usehold distances with no increase in pain wit hin 4 weeks Investment Strategist Goal(s): Residential Goals (including t david frames) ; LTG1 Patient to be able to sleep 8 hours with no pain disturbance within 8 weeks.L TG2 Patient to be able to navigate 1 flight of stairs with no difficulty / pain increase w ithin 8 weeks.LTG3 Patient to be able to walk 3 0 minutes to be able to do her own shopping with no pain increase within 8 weeks Patient Goal(s): Patient Goal (s): ; to have no hip pain Certification Dates (MEDICARE ONLY): Certification Fro m ; 05/10/2020. Certification To ; 07/11/2020 Frequency: Treatment frequency: 1 time (s) a week Intensity: Treatment Intensity: 30 min Duration: Treatment duration: 8 week( s) Planned Treatment Interventions: PT Charge Code 00860: therapeutic exercises, 29491: therapeutic activity, 15153: manual therapy Discharge Plan: Discharge Plan: upon achievi ng goals or maximal benefit of therapy services *Plan: Therapy Plan Continue as per plan of care *Time: Time In: ; 1045am. Time Out: ; 1130am. Total Time: ; 45 minutes
--- OUTSIDE RECORDS SUMMARY | 2020-06-12 13:58 | XMS_ITS | Encounter Summary ---
:1950 Author Care Team Providers Name Role Phone Mihai Saunders Primary Care Provider [phone] Isi Beasley APRN Mail Rider [phone] Bud Hernandez MD Mail Rider [phone] Agnieszka Doty MD Rail Operations Controller [phone] César Ambriz MD Orthopedic Surgeon [phone] Dallas Otoole MD Thoracic Surgeon [phone] Reason for Visit Malignant tumor of lung; imaging follow up Assessment and Plan 1. 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 She has done very well postoperatively. She has 1 paralyzed vocal cord. She has now completed speech therapy. She also has completed pulmonary rehab. She already got her flu shot. She is completely asymptomatic for short ness of breath, wheezing or coughing. No weight loss or loss [place] [address] shows a very small am ount of new right-sided pleural effusion with somewhat irregular pleural surface. This may still represent a sympathetic effusion, infected parapneumonic effusion is very unlikely given the paucity of s ymptoms, malignant pleural effusion especially with some irregularity on the pleural surface is a consideration. As such, patient will be referred to [facility] for PET scanning in visit with Dr. Otoole on the same day, hopefully we can arrange for all of this before she has the start self isolating for her upcoming hip surgery next week. If there are PET positive areas on this pleural effusion, thoracoscopic sampling may be considered. If the PET scan is negative, and samplin g is not deemed to be necessary, we may do a sooner follow-up CT, such as in 3 months. She needs to continue to stay away from cigarette smoke. She can enroll in the pulmonary rehab [facility] program. Dr. Otoole recommended 30 minutes of aerobic exercise per day. She can do this, after she fully recovered from her hip surgery Thankfully, with the recent addition of Wellbutrin her mood and her outlook on life has improved. Her uncontrolled hypertension is now much better controlled on metoprolol. Spirometry was carried out today Her lung function is optimized for her u pcoming hip surgery Addendum: Spirometry in the office 03/27/2020 show s FEV1/FVC 70, FEV1 66%, 1.48 L, FVC 70%, 2.10 L ? PET-CT, skull base to mid- thigh scan 2. Tomography - chest abnormal Discussion Note More than 25 minutes were spent wit h the patient , more than 50% of the time counseling Patient educational handouts: No information available. Plan of Care Reminders Provider Appointments [facility] 07/28/2020 Mihai Jauregui Saunders, 12:40PM DO Lab None ? ? recorded. Referral None ? ? recorded. Procedures None ? ? recorded. Surgeries None ? ? recorded. Imaging PET-CT, 03/27/2020 [facility] Skull Base to Hospital Radiolo gy Mid-thigh Scan (Internal) Medications Name Start Date ? ? Aleve [...] 24 hr ? TAKE 1 TABLET BY [facility] EVERY DAY AT BEDTIME Multivitamin 50 Plus [...] units daily Medications Administered None recorded. Vitals Height Weight BMI Blood Pressure 5 ft 4.5 in 79.7 kg 29.7 kg/m2 131/81 mm[Hg] Results Lab Results None recorded. Allergies Code Code System Name Reaction Severity Onset 555910 RxNorm Augmentin Vomiting ? ? Problems Name [...] Information not avai lable Notes: Drainage hematoma 201403/08/2020 XR, Hip, Bilateral [facility] ([facility] [address] [place] [address] (Work Place) 03/27/2020 PET-CT, Skull Base to Mid-thigh Scan [facility] Radiology (Internal) [address] [place] [address] (Work Place) Vaccine List Vaccine Type Hep A, adult [...] Information) Functional Status No Impairment. Past Encounters 03/27/2020 Malignant Tumor of Lung; Tomography - Ch est Abnormal Agnieszka Doty MD: [address] [facility] [place] [address], Ph. History of Present Illness Note: <p>70-year-old woman who comes in for follow-up after robotic right upper lobe lobectomy and right middle lobe wedge resection on 09/11/2018 for invasive adenocarcinoma, stage Ib, T2a, N0, M0,all margins and nodes were negative.</p><p>She had a recent follow-up chest CT, she is here to review images
</p><p>She is feeling well, she has no respiratory complaints, no recent setbacks, no respiratory infections, no shortness of breath, coughing, fevers, chills. She has an upcoming left hip replacement surgery scheduled for 04/04/2020, she will need to start self isolating as of Friday.
</p><p>
</p><p>
</ p><p>She had an uneventful postoperative course but had to be discharged home [facility] due to prolonged leak, however this was discontinued as well successfully.</p><p>She is feeling well, her only complaint was hoarseness of the voice, she saw an ENT doc at [facility], and she was told that one of her vocal cords were paralyzed.</p><p>
</p><p>No hemoptysis, no wheezing, no loss of weight or loss of appetite. She is on no inhalers.</p><p>She had a follow-up chest CT on 09/27/2019 at [facility] which showed no evidence of recurrent disease,</p><p>Dr. Otoole in the past recommend follow-up chest CT in 6 months and aerobic exercise 30 minutes every day.</p><p>Right now her exercise limitation is due to hip pain.
</p><p>Her pneumonia and flu vaccinations are all up-to-date. She already got the flu shot</p><p>She offers no complaints. She feels healthy.</p><p>She had a recent mammogram which was negative.</p><p>
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 She lived in [place], [place]. She relocated to our area a few years ago.</p><p>Family history: Noncontributory, no lungcancer in the family.</p> Review of Systems ? Notes: <p>As above
</p> Physical Exam ? Notes: <p>Elderly woman in no acute distress</p><p>chest: bilateral air entry, with clear breath sounds, no crep itations, crackles or wheezes, well-healed small surgical scars</p><p>Hear t, S1, S2 normal</p><p>Neuro; A/O x 3</p><p>Extremities: No tara a, clubbing, cyanosis</p>
[2020-06-12 14:22] LABS: CREATININE 0.89 mg/dL (0.55-1.02)
[2020-06-12] MEDS: Normal Saline Flush 10 ML SYR IVP (14:25)
[2020-06-12] MEDS: Heparin 500 UNITS/5 ML SYRINGE (15:04)
[2020-06-19] MEDS: Normal Saline Flush 10 ML SYR IVP (07:43)
[2020-06-19 07:51] LABS: Abs Immature Grans 0.03 10^3/uL (0.0-0.06); Absolute Basophil Count 0.03 10^3/uL (0.0-0.2); Absolute Eosinophil Count 0.03 10^3/uL (0.0-0.7); Absolute Lymphocyte Count 1.11 10^3/uL (1.2-3.4); Absolute Monocyte Count 0.56 10^3/uL (0.1-0.8); Basophils % 0.8; Eosinophils % 0.8; HCT 34.7 % (36.0-46.0); HGB 11.3 g/dL (11.2-15.7); Immature Grans % 0.8; MCH 30.4 pg (27.0-33.0); MCHC 32.6 % (32.0-36.0); MCV 93.3 fL (80-95); MPV 8.3 fL (8.0-11.0); Monocytes % 14.1; Neutrophils % 55.5; Nucleated RBC 0 %; Platelet Count 289 10^3/uL (130-400); RBC 3.72 10^6/uL (3.93-5.22); RDW 16.7 % (11.7-14.6); RDW-SD 55.2 fL; WBC 3.97 10^3/uL (4.4-10.8)
[2020-06-19 08:15] LABS: ALT 27 U/L (14-59); AST 15 U/L (15-37); Albumin 3.6 g/dL (3.4-5.0); Alkaline Phosphatase 126 U/L (46-116); Anion Gap 7.9 mmol/L (3-11); BUN 10 mg/dL (7-18); Bilirubin, Total 0.3 mg/dL (0.2-1.0); CO2 27.1 mmol/L (21.0-32.0); Calcium 9.3 mg/dL (8.5-10.1); Chloride 102 mmol/L (98-107); FREE T4 1.13 ng/dL (0.76-1.46); Glucose 101 mg/dL (74-106); Magnesium 2.1 mg/dL (1.8-2.4); Sodium 137 mmol/L (136-145); TSH 2.88 uIU/mL (0.36-3.74); Total Protein 6.7 g/dL (6.4-8.2)
== END 2020-07-09 23:59 | disposition home or self-care (01) ==
LOC: INF 01:54
PROVIDERS: PCP Neuromusculoskeletal Medicine & OMM; Visit Provider Internal Medicine Medical Oncology
DX: C34.91 Malignant neoplasm of unspecified part of right bronchus or lung (principal); R93.89 Abnormal findings on diagnostic imaging of other specified body structures; Z45.2 Encounter for adjustment and management of vascular access device
CPT/HCPCS: 36591; 80053; 82565; 83735; 84439; 84443; 85025

== ENCOUNTER 2020-07-31 02:13 | Outpatient (CLI) | payer MEDICARE, BC, SELFPAY ==
[2020-07-31] MEDS: Omnipaque 350 MG/ML 100 ML BTL IJ (09:12)
[2020-07-31] MEDS: Normal Saline - Diluent 50 ML VIAL IV (09:13)
[2020-07-31] MEDS: Normal Saline Flush 10 ML SYR IVP (09:13)
--- NOTE | 2020-07-31 09:14 | DI.CT_ITS ---
EXAM: CT CHEST W CLINICAL HISTORY: STAGE 4 LUNG CA,C34.91,DIARRHEA,A04.72,ASSESS TREATMENT RESPONSE. TECHNIQUE: Multi planar reconstructions were performed. CONTRAST MATERIAL: Omnipaque 350; 75 cc COMPARISON: CT CT CHEST W from 06/12/2020 FINDINGS: CHEST: LUNGS: Again noted is slightly decreased right hemithoracic volume from prior lobectomy. The previou sly described 6 millimeter nodular density in the right upper lobe is unchanged. There are no new ri ght lung nodules. Increased markings in the right lung base and ipsilateral small pleural effusion i s unchanged and not associated with overlying rib destruction. The opposite-left lung remains clear. There is no pleural fluid on the left side. No new focal findings in the trachea. The previously described nodularity in the posterior wall of the right mainstem bronchus is unchanged. Left mainste m bronchus appears unremarkable. MEDIASTINUM: No obvious new hilar nor mediastinal adenopathy. There is no subcarinal adenopathy. Th ere is no supraclavicular adenopathy nor axillary adenopathy. Visualized thyroid unremarkable. CARDIAC: Heart size is normal. There is no pericardial effusion.Caliber of the thoracic aorta is wit hin normal limits. Distal tip of the right sided Port-A-Cath remains at the SVC-RA junction. VISUALIZED UPPER ABDOMEN:Previously described thickening of both adrenal glands is unchanged and prob ably represent benign adenomas given that they are unchanged from 2015. Visualized liver exhibits no obvious metastatic disease. Spleen size is normal. OSSEOUS: No significant osseous lesions.. IMPRESSION: 1. There is essentially no significant change when compared to the CT scan of 06/12/2020. 2. The previously described small 5-6 millimeter nodular density in the right upper lobe remains unch anged and there are no new nodules evident in either lung field nor new intrathoracic adenopathy. 3. There is a small unchanged right pleural effusion, not associated with new nodularity nor overlyin g rib destruction. Correlation with any clinical signs of empyema recommended. There is no pleural fluid on the opposite-left side. 4. Stable adrenal nodules which are unchanged from 2015 and therefore most probably represent benign adenomas. 5. No new lytic osseous lesions identified. RADIATION DOSE DELIVERED: 414.35mGy.cm Total DLP DATA REPOSITORY: All CT scans at this facility are submitted to the National Radiology Data Registry (NRDR) Dose Index Registry (DIR) with the [employer] (A[employer]). RADIATION OPTIMIZATION: All CT scans at this facility use at least one of these dose optimization te chniques: automated exposure control; mA and/or kV adjustment per patient size (includes targeted exa ms where dose is matched to clinical indication); or iterative reconstruction.
== END 2020-07-31 02:14 ==
PROVIDERS: PCP Neuromusculoskeletal Medicine & OMM; Visit Provider Nurse Practitioner Adult Health
DX: C34.91 Malignant neoplasm of unspecified part of right bronchus or lung (principal); A04.72 Enterocolitis due to Clostridium difficile, not specified as recurrent; J90 Pleural effusion, not elsewhere classified
CPT/HCPCS: 96523; 71260; J3490

== ENCOUNTER 2020-07-31 02:35 | Outpatient (RCR) | payer MEDICARE, BC, SELFPAY ==
[2020-07-10 07:57] LABS: Abs Immature Grans 0.01 10^3/uL (0.0-0.06); Absolute Basophil Count 0.02 10^3/uL (0.0-0.2); Absolute Eosinophil Count 0.02 10^3/uL (0.0-0.7); Absolute Monocyte Count 0.42 10^3/uL (0.1-0.8); Absolute Neutrophil Count 1.08 10^3/uL (1.2-6.7); Basophils % 0.9; Eosinophils % 0.9; HCT 31.6 % (36.0-46.0); HGB 10.4 g/dL (11.2-15.7); Immature Grans % 0.4; MCH 31.2 pg (27.0-33.0); MCHC 32.9 % (32.0-36.0); MCV 94.9 fL (80-95); MPV 8.4 fL (8.0-11.0); Monocytes % 17.9; Neutrophils % 45.9; Nucleated RBC 0 %; Platelet Count 250 10^3/uL (130-400); RBC 3.33 10^6/uL (3.93-5.22); RDW 18.7 % (11.7-14.6); WBC 2.35 10^3/uL (4.4-10.8)
[2020-07-10] MEDS: Normal Saline Flush 10 ML SYR IVP (08:04)
[2020-07-10 08:17] LABS: ALT 21 U/L (14-59); AST 16 U/L (15-37); Albumin 3.4 g/dL (3.4-5.0); Alkaline Phosphatase 122 U/L (46-116); Anion Gap 8.5 mmol/L (3-11); BUN 8 mg/dL (7-18); Bilirubin, Total 0.3 mg/dL (0.2-1.0); CO2 25.5 mmol/L (21.0-32.0); CREATININE 0.8 mg/dL (0.55-1.02); Calcium 9.1 mg/dL (8.5-10.1); Chloride 104 mmol/L (98-107); FREE T4 1.18 ng/dL (0.76-1.46); Glucose 113 mg/dL (74-106); Magnesium 2.1 mg/dL (1.8-2.4); Potassium 3.9 mmol/L (3.5-5.1); Sodium 138 mmol/L (136-145); TSH 1.52 uIU/mL (0.36-3.74); Total Protein 6.5 g/dL (6.4-8.2)
[2020-07-24 08:44] LABS: Abs Immature Grans 0.02 10^3/uL (0.0-0.06); Absolute Basophil Count 0.03 10^3/uL (0.0-0.2); Absolute Eosinophil Count 0.04 10^3/uL (0.0-0.7); Absolute Lymphocyte Count 0.92 10^3/uL (1.2-3.4); Absolute Monocyte Count 0.54 10^3/uL (0.1-0.8); Absolute Neutrophil Count 2.74 10^3/uL (1.2-6.7); Basophils % 0.7; Eosinophils % 0.9; HCT 33.1 % (36.0-46.0); HGB 10.8 g/dL (11.2-15.7); Immature Grans % 0.5; Lymphocytes % 21.4; MCH 31.4 pg (27.0-33.0); MCHC 32.6 % (32.0-36.0); MCV 96.2 fL (80-95); MPV 8.5 fL (8.0-11.0); Monocytes % 12.6; Neutrophils % 63.9; Nucleated RBC 0 %; Platelet Count 210 10^3/uL (130-400); RBC 3.44 10^6/uL (3.93-5.22); RDW 18.3 % (11.7-14.6); RDW-SD 64.6 fL; WBC 4.29 10^3/uL (4.4-10.8)
[2020-07-24] MEDS: Normal Saline Flush 10 ML SYR IVP (08:47)
[2020-07-24 09:20] LABS: ALT 27 U/L (14-59); AST 18 U/L (15-37); Albumin 3.3 g/dL (3.4-5.0); Alkaline Phosphatase 130 U/L (46-116); Anion Gap 6.1 mmol/L (3-11); BUN 12 mg/dL (7-18); Bilirubin, Total 0.3 mg/dL (0.2-1.0); CO2 27.9 mmol/L (21.0-32.0); CREATININE 0.9 mg/dL (0.55-1.02); Calcium 9.2 mg/dL (8.5-10.1); Chloride 104 mmol/L (98-107); Glucose 107 mg/dL (74-106); Magnesium 2.1 mg/dL (1.8-2.4); Potassium 4.2 mmol/L (3.5-5.1); Sodium 138 mmol/L (136-145); TSH 0.82 uIU/mL (0.36-3.74); Total Protein 6.2 g/dL (6.4-8.2)
[2020-07-24 09:39] LABS: FREE T4 0.89 ng/dL (0.76-1.46)
[2020-07-31] MEDS: Normal Saline Flush 10 ML SYR IVP ×2 (08:50→09:39)
[2020-07-31] MEDS: Heparin 500 UNITS/5 ML SYRINGE IV (09:40)
== END 2020-08-06 23:59 | disposition home or self-care (01) ==
LOC: INF 02:35
PROVIDERS: PCP Neuromusculoskeletal Medicine & OMM; Visit Provider Internal Medicine Medical Oncology
DX: C34.91 Malignant neoplasm of unspecified part of right bronchus or lung (principal); R93.89 Abnormal findings on diagnostic imaging of other specified body structures; Z45.2 Encounter for adjustment and management of vascular access device
CPT/HCPCS: 36591; 80053; 96523; 83735; 84439; 84443; 85025

== ENCOUNTER 2020-08-14 03:36 | Outpatient (RCR) | payer MEDICARE, BC, SELFPAY ==
[2020-08-14 07:48] LABS: Abs Immature Grans 0.01 10^3/uL (0.0-0.06); Absolute Basophil Count 0.03 10^3/uL (0.0-0.2); Absolute Eosinophil Count 0.03 10^3/uL (0.0-0.7); Absolute Lymphocyte Count 0.96 10^3/uL (1.2-3.4); Absolute Monocyte Count 0.45 10^3/uL (0.1-0.8); Absolute Neutrophil Count 2.31 10^3/uL (1.2-6.7); Basophils % 0.8; Eosinophils % 0.8; HCT 32.2 % (36.0-46.0); HGB 10.6 g/dL (11.2-15.7); Immature Grans % 0.3; Lymphocytes % 25.3; MCH 32.6 pg (27.0-33.0); MCHC 32.9 % (32.0-36.0); MCV 99.1 fL (80-95); MPV 8.4 fL (8.0-11.0); Monocytes % 11.9; Neutrophils % 60.9; Nucleated RBC 0 %; Platelet Count 238 10^3/uL (130-400); RBC 3.25 10^6/uL (3.93-5.22); RDW 17.2 % (11.7-14.6); RDW-SD 63.5 fL; WBC 3.79 10^3/uL (4.4-10.8)
[2020-08-14 08:09] LABS: ALT 37 U/L (14-59); AST 23 U/L (15-37); Albumin 3.4 g/dL (3.4-5.0); Alkaline Phosphatase 135 U/L (46-116); Anion Gap 7.6 mmol/L (3-11); BUN 11 mg/dL (7-18); Bilirubin, Total 0.4 mg/dL (0.2-1.0); CO2 26.4 mmol/L (21.0-32.0); CREATININE 0.8 mg/dL (0.55-1.02); Calcium 9.2 mg/dL (8.5-10.1); Chloride 104 mmol/L (98-107); FREE T4 0.95 ng/dL (0.76-1.46); Glucose 95 mg/dL (74-106); Potassium 4.2 mmol/L (3.5-5.1); Sodium 138 mmol/L (136-145); TSH 1.79 uIU/mL (0.36-3.74); Total Protein 6.7 g/dL (6.4-8.2)
[2020-08-14] MEDS: Normal Saline Flush 10 ML SYR IVP (09:28)
== END 2020-09-06 23:59 | disposition home or self-care (01) ==
LOC: INF 03:36
PROVIDERS: PCP Neuromusculoskeletal Medicine & OMM; Visit Provider Internal Medicine Medical Oncology
DX: C34.91 Malignant neoplasm of unspecified part of right bronchus or lung (principal); R93.89 Abnormal findings on diagnostic imaging of other specified body structures; Z45.2 Encounter for adjustment and management of vascular access device
CPT/HCPCS: 36591; 80053; 83735; 84439; 84443; 85025

== ENCOUNTER 2020-09-07 02:14 | Outpatient (CLI) | payer MEDICARE, BC, SELFPAY ==
--- NOTE | 2020-09-07 13:18 | OPPNE_ITS ---
Date of service: 09/07/20 Time of Service: 13:18 Procedure Note Date of procedure: 09/07/20 Procedure: Left Hip Injection with Fluoroscopic Guidance Surgeon/Proceduralist/Physician: César Ambriz Procedure Diagnosis: Left Hip Osteoarthritis Procedure Indications: Sarah has had persistent pain of the LEFT hip and groin. Noninvasive measures have been tried. Previous injection provided good pain relief. Therefore, another injection under fluoroscopy was recommended. I had discussed the risks of the procedure and the patient elected to proceed. Procedure Description: Sarah was greeted in the flouroscopy room. The correct side was identified and the consent was reviewed with the patient and signed. The patient was then placed in the supine position on the fluoroscopy table. The LEFT hip was then prepped with Chloraprep. The anterolateral injection starting point was identiifed by bony landmarks and fluoroscopy. The skin and soft tissue in the tract of the injection was anesthetized with 1% Lidocaine. A spinal needle was then inserted deep into the hip joint at the level of the lateral femoral neck under fluo roscopic guidance. A small amount of Omnipaque solution was injected to confirm intraarticular placement. Once confirmed, the hip was injected with 6cc of 0.5% Bupivicaine and 80mg of Depo-Medrol. A bandaid was placed on the injection site. The patient tolerated the procedure well and noted improvement in pre- injection pain.
[2020-09-07] MEDS: Omnipaque 300 MG/ML 10 ML BTL IJ (13:51)
[2020-09-07] MEDS: methylPREDNISolone ACETATE 80 MG/ML VIAL IM (13:51)
[2020-09-07] MEDS: Bupivacaine 0.5% Pres-Free 10 ML VIAL 6 ML IJ (13:52)
--- NOTE | 2020-09-07 13:52 | DI.RAD_ITS ---
EXAM: RF JOINT INJECTION FLUORO GUID CLINICAL HISTORY: L HIP INJ UNDER FLUORO,DJD LT HIP,M16.12 TECHNIQUE: Fluoroscopy provided. Radiologist not present. CONTRAST MATERIAL: None COMPARISON: No exams were available for comparison FINDINGS: Fluoroscopy was provided for Dr. Ambriz during left hip joint injection. Submitted image(s) reveal distal tip of the needle at the lateral aspect of the femoral head/lateral approach. There is intra-articular contrast evident Please refer to the procedure report for complete details. Fluoro time: 0 seconds. Cumulative Dose: 8.1 mGy IMPRESSION:
== END 2020-09-07 02:34 ==
PROVIDERS: PCP Neuromusculoskeletal Medicine & OMM; Visit Provider Student in an Organized Health Care Education/Training Program
DX: M16.12 Unilateral primary osteoarthritis, left hip (principal); M25.552 Pain in left hip; R10.32 Left lower quadrant pain
CPT/HCPCS: 20610; 77002; J1040

== ENCOUNTER 2020-10-02 03:18 | Outpatient (RCR) | payer MEDICARE, BC, SELFPAY ==
[2020-09-11] MEDS: Normal Saline Flush 10 ML SYR IVP (07:42)
[2020-09-11 07:49] LABS: Abs Immature Grans 0.02 10^3/uL (0.0-0.06); Absolute Basophil Count 0.04 10^3/uL (0.0-0.2); Absolute Lymphocyte Count 1.62 10^3/uL (1.2-3.4); Absolute Monocyte Count 0.56 10^3/uL (0.1-0.8); Absolute Neutrophil Count 2.33 10^3/uL (1.2-6.7); Basophils % 0.9; Eosinophils % 2.1; HGB 10.9 g/dL (11.2-15.7); Immature Grans % 0.4; Lymphocytes % 34.7; MCH 32.6 pg (27.0-33.0); MCHC 32.1 % (32.0-36.0); MCV 101.8 fL (80-95); MPV 8.6 fL (8.0-11.0); Neutrophils % 49.9; Nucleated RBC 0 %; Platelet Count 224 10^3/uL (130-400); RBC 3.34 10^6/uL (3.93-5.22); RDW 14.8 % (11.7-14.6); RDW-SD 55.5 fL; WBC 4.67 10^3/uL (4.4-10.8)
[2020-09-11 08:13] LABS: ALT 36 U/L (14-59); AST 18 U/L (15-37); Albumin 3.7 g/dL (3.4-5.0); Alkaline Phosphatase 123 U/L (46-116); Anion Gap 7.6 mmol/L (3-11); BUN 16 mg/dL (7-18); Bilirubin, Total 0.4 mg/dL (0.2-1.0); CO2 29.4 mmol/L (21.0-32.0); CREATININE 0.9 mg/dL (0.55-1.02); Calcium 9.5 mg/dL (8.5-10.1); Chloride 102 mmol/L (98-107); FREE T4 1.19 ng/dL (0.76-1.46); Glucose 88 mg/dL (74-106); Magnesium 2.1 mg/dL (1.8-2.4); Potassium 4.3 mmol/L (3.5-5.1); Sodium 139 mmol/L (136-145); Total Protein 6.7 g/dL (6.4-8.2)
[2020-10-02] MEDS: Normal Saline Flush 10 ML SYR IVP (08:20)
[2020-10-02 08:49] LABS: Abs Immature Grans 0.02 10^3/uL (0.0-0.06); Absolute Basophil Count 0.04 10^3/uL (0.0-0.2); Absolute Lymphocyte Count 1.01 10^3/uL (1.2-3.4); Absolute Monocyte Count 0.57 10^3/uL (0.1-0.8); Absolute Neutrophil Count 3.49 10^3/uL (1.2-6.7); Basophils % 0.8; Eosinophils % 1.9; HCT 32.7 % (36.0-46.0); HGB 10.7 g/dL (11.2-15.7); Immature Grans % 0.4; Lymphocytes % 19.3; MCH 33.2 pg (27.0-33.0); MCHC 32.7 % (32.0-36.0); MCV 101.6 fL (80-95); MPV 8.4 fL (8.0-11.0); Monocytes % 10.9; Neutrophils % 66.7; Nucleated RBC 0 %; Platelet Count 306 10^3/uL (130-400); RBC 3.22 10^6/uL (3.93-5.22); RDW 14.3 % (11.7-14.6); RDW-SD 53.6 fL; WBC 5.23 10^3/uL (4.4-10.8)
[2020-10-02 09:11] LABS: ALT 39 U/L (14-59); AST 29 U/L (15-37); Albumin 3.5 g/dL (3.4-5.0); Alkaline Phosphatase 127 U/L (46-116); Anion Gap 7.1 mmol/L (3-11); BUN 14 mg/dL (7-18); Bilirubin, Total 0.3 mg/dL (0.2-1.0); CO2 29.9 mmol/L (21.0-32.0); CREATININE 0.9 mg/dL (0.55-1.02); Calcium 9.5 mg/dL (8.5-10.1); Chloride 103 mmol/L (98-107); Glucose 100 mg/dL (74-106); Potassium 4.3 mmol/L (3.5-5.1); Sodium 140 mmol/L (136-145); TSH 0.93 uIU/mL (0.36-3.74); Total Protein 6.7 g/dL (6.4-8.2)
== END 2020-10-06 23:59 | disposition home or self-care (01) ==
LOC: INF 03:18
PROVIDERS: PCP Neuromusculoskeletal Medicine & OMM; Visit Provider Internal Medicine Medical Oncology
DX: R93.89 Abnormal findings on diagnostic imaging of other specified body structures (principal); C34.91 Malignant neoplasm of unspecified part of right bronchus or lung; Z79.899 Other long term (current) drug therapy; Z45.2 Encounter for adjustment and management of vascular access device
CPT/HCPCS: 36591; 80053; 83735; 84439; 84443; 85025

== ENCOUNTER 2020-10-16 02:17 | Outpatient (CLI) | payer MEDICARE, BC, SELFPAY ==
--- NOTE | 2020-10-16 | DI.CT_ITS ---
Exam(s) CT CHEST/ABD/PEL W EXAM: CT CHEST/ABD/PEL W CLINICAL HISTORY: RT LUNG CA, C34.91,DIARRHEA,A04.72,LLQ ABD PAIN,ON IMMUNOTHERAPY,RESTAGING. TECHNIQUE: Imaging Protocol: Axial computed tomography images with coronal and sagittal reformatted images were created and reviewed CONTRAST MATERIAL: Intravenous: Omnipaque 350 Contrast volume:100 ml Oral: None COMPARISON: CT CT CHEST W from 07/31/2020 FINDINGS: CHEST: LUNGS: Again noted is slightly decreased right hemithoracic volume from prior lobectomy.. The previo usly described 6 millimeter nodular density in right upper lobe exhibits no significant change. No i ncrease in size.. There are no new right lung nodules. Calcified granuloma in the anterior right sherman ng base is unchanged. Scarring in the lung bases unchanged and the size of the previously described small right pleural effusion remains unchanged and again not associated with overlying rib. There ar e no new focal findings in the opposite-left lung. No left pleural effusion. No new findings in tra brett mainstem bronchi. Destruction. This may be loculated. MEDIASTINUM: No new hilar nor mediastinal adenopathy. Thyroid findings remain unchanged. CARDIAC: Heart size is normal. There is no pericardial effusion.Caliber of the thoracic aorta is wit hin normal limits. OSSEOUS: No significant osseous lesions.. ABDOMEN: There is no ascites. LIVER: There are no focal hepatic lesions nor dilatation of intrahepatic ducts. GALLBLADDER/BILIARY: No obvious gallbladder pathology. CBD is not dilated. PANCREAS: No evidence of pancreatic mass nor dilatation of the pancreatic duct. SPLEEN: Spleen is not enlarged. There are no intrasplenic lesions. Splenic and portal veins are olmos nt. ADRENALS: Thickening of both adrenal glands is unchanged. KIDNEYS: No calculi nor hydronephrosis. No solid renal masses. Tiny cyst in the inferior pole left ki dney is. ABDOMINAL AORTA: Abdominal aorta is calcified-atherosclerotic but not enlarged. Iliac arteries not e nlarged. LYMPH NODES: There is no retroperitoneal nor paraaortic adenopathy. ABDOMINAL WALL: Anterior abdominal wall midline umbilical hernia which contains fat and no bowel loop s. GI: There is no evidence of bowel obstruction. PELVIS: LYMPH NODES: There is no intrapelvic nor inguinal adenopathy. GI: No evidence of appendicitis.No evidence of sigmoid diverticulitis. URINARY BLADDER: No calculi nor masses evident REPRODUCTIVE: Calcified uterine fibroids noted. No abnormal adnexal masses. No free fluid in the pe lvis. OSSEOUS: No significant osseous lesions. IMPRESSION: 1. Compared to the prior CT scan of 07/31/2020 the previously described small 6 millimeter nodular de nsity in the right upper lobe remains unchanged and there are no new pulmonary nodules in either lung field nor new intrathoracic adenopathy. The small right pleural effusion is unchanged and not assoc iated with overlying rib destruction 2. Stable adrenal nodules which are unchanged from 2015 and most probably therefore represent benign adenomas. 3. No evidence of metastatic disease in the abdomen and pelvis. No ascites. 4. No significant osseous lesions evident. RADIATION DOSE DELIVERED: 1,382.26mGy.cm Total DLP DATA REPOSITORY: All CT scans at this facility are submitted to the National Radiology Data Registry (NRDR) Dose Index Registry (DIR) with the [employer] (ACR). RADIATION OPTIMIZATION: All CT scans at this facility use at least one of these dose optimization te chniques: automated exposure control; mA and/or kV adjustment per patient size (includes targeted exa ms where dose is matched to clinical indication); or iterative reconstruction.
[2020-10-16] MEDS: Breeza Beverage 473 ML BTL PO (09:42)
[2020-10-16] MEDS: Omnipaque 350 MG/ML 50 ML BTL IJ (09:42)
[2020-10-16] MEDS: Omnipaque 350 MG/ML 100 ML BTL IV (10:56)
[2020-10-16] MEDS: Normal Saline - Diluent 50 ML VIAL IV (10:57)
== END 2020-10-16 02:37 ==
PROVIDERS: PCP Neuromusculoskeletal Medicine & OMM; Visit Provider Internal Medicine Medical Oncology
DX: C34.91 Malignant neoplasm of unspecified part of right bronchus or lung (principal); R10.32 Left lower quadrant pain; A04.72 Enterocolitis due to Clostridium difficile, not specified as recurrent; Z12.89 Encounter for screening for malignant neoplasm of other sites; J90 Pleural effusion, not elsewhere classified
CPT/HCPCS: 74177; 96523; 71260; J3490; Q9967

== ENCOUNTER 2020-10-23 02:39 | Outpatient (RCR) | payer MEDICARE, BC, SELFPAY ==
[2020-10-16] MEDS: Heparin 500 UNITS/5 ML SYRINGE IV (09:29)
[2020-10-16] MEDS: Normal Saline Flush 10 ML SYR IVP (09:29)
[2020-10-23] MEDS: Normal Saline Flush 10 ML SYR IVP (10:42)
[2020-10-23 10:48] LABS: Abs Immature Grans 0.02 10^3/uL (0.0-0.06); Absolute Basophil Count 0.04 10^3/uL (0.0-0.2); Absolute Eosinophil Count 0.11 10^3/uL (0.0-0.7); Absolute Lymphocyte Count 1.29 10^3/uL (1.2-3.4); Absolute Monocyte Count 0.82 10^3/uL (0.1-0.8); Absolute Neutrophil Count 4.18 10^3/uL (1.2-6.7); Basophils % 0.6; Eosinophils % 1.7; HCT 31.1 % (36.0-46.0); HGB 10.3 g/dL (11.2-15.7); Immature Grans % 0.3; MCH 33.3 pg (27.0-33.0); MCHC 33.1 % (32.0-36.0); MCV 100.6 fL (80-95); MPV 8.3 fL (8.0-11.0); Monocytes % 12.7; Neutrophils % 64.7; Nucleated RBC 0 %; Platelet Count 317 10^3/uL (130-400); RBC 3.09 10^6/uL (3.93-5.22); RDW 14.7 % (11.7-14.6); RDW-SD 54.5 fL; WBC 6.46 10^3/uL (4.4-10.8)
[2020-10-23 11:19] LABS: ALT 58 U/L (14-59); AST 38 U/L (15-37); Albumin 3.4 g/dL (3.4-5.0); Alkaline Phosphatase 163 U/L (46-116); Anion Gap 7.5 mmol/L (3-11); BUN 14 mg/dL (7-18); Bilirubin, Total 0.4 mg/dL (0.2-1.0); CO2 28.5 mmol/L (21.0-32.0); Calcium 9.2 mg/dL (8.5-10.1); Chloride 102 mmol/L (98-107); Estimated GFR 54.66 (mL/min/1.73m2); FREE T4 1.04 ng/dL (0.76-1.46); Glucose 122 mg/dL (74-106); Potassium 4.3 mmol/L (3.5-5.1); Sodium 138 mmol/L (136-145); TSH 1.65 uIU/mL (0.36-3.74); Total Protein 6.8 g/dL (6.4-8.2)
== END 2020-11-06 23:59 | disposition home or self-care (01) ==
LOC: INF 02:39
PROVIDERS: PCP Neuromusculoskeletal Medicine & OMM; Visit Provider Internal Medicine Medical Oncology
DX: R93.89 Abnormal findings on diagnostic imaging of other specified body structures (principal); Z45.2 Encounter for adjustment and management of vascular access device; C34.91 Malignant neoplasm of unspecified part of right bronchus or lung
CPT/HCPCS: 36591; 80053; 96523; 83735; 84439; 84443; 85025

== ENCOUNTER → 2020-11-02 09:58 | Outpatient (BNVA) | payer MEDICARE, BC, SELFPAY | PROVIDERS: PCP Neuromusculoskeletal Medicine & OMM; Referring Provider Nurse Practitioner Family; Visit Provider Physical Therapy Assistant | DX: Z12.11 Encounter for screening for malignant neoplasm of colon (principal); Z86.010 Personal history of colon polyps ==

== ENCOUNTER 2020-11-10 07:20 | Day surgery (SDC) | payer MEDICARE, BC, SELFPAY ==
[2020-11-10 07:31] VITALS: BP 125/70; PULSE 84; RESP 16; TEMP 36.4; O2SAT 98
--- NOTE | 2020-11-10 08:22 | W.ANESPRE ---
General Info Date of Service Date Performed: 11/10/20 Height: 5 ft 4.57 in Weight: 68.9 kg Body Mass Index (BMI): 25.6 Surgical Procedure: Operation Date: 11/10/20 08:20 Proposed Procedures Side Surgeon p Colonoscopy Radha Holloway DO Pre-Op Diagnosis Post-Op Diagnosis SCREENING HX OF POLYPS SCREENING HX OF POLYPS Meds Allergies and Home Medications Allergies Allergy/AdvReac Type Severity Reaction Status Date / Time amoxicillin trihydrate AdvReac Intermediate GI Upset Verified 11/08/20 12:46 [From Augmentin] potassium clavulanate AdvReac Intermediate GI Upset Verified 11/08/20 12:46 [From Augmentin] Home Medication Medication Instructions Recorded Centrum Silver Women 1 ea PO DAILY 03/02/15 glucosam-chond zw-hbijlu-pt ac 1 ea PO DAILY 03/02/15 triamcinolone acetonide 1 ml TOPICAL BID PRN #1 bottle 12/18/15 Areds 2 1 tab PO DAILY 10/29/16 cholecalciferol (vitamin D3) 5,000 unit PO DAILY 10/29/16 vitamin B complex 1 ea PO DAILY 10/29/16 apple cider vinegar 600 mg capsule 600 mg PO DAILY 07/29/19 ascorbic acid (vitamin C) 500 mg 500 mg PO DAILY 07/29/19 capsule calcium carbonate 500 mg calcium 1,250 mg PO DAILY tab 07/29/19 (1,250 mg) tablet fluoride (sodium) 1.1 % dental gel 1 applic DT DAILY 07/29/19 lactobacillus combination no.4 3 3,000 mmu cells PO DAILY 07/29/19 billion cell capsule polyethylene glycol 3350 17 238 g PO ONCE #238 gm 08/19/19 gram/dose oral powder bisacodyl 5 mg tablet,delayed 5 mg PO ONCE #4 tab 11/02/20 release cephalexin 11/08/20 famotidine [Pepcid] 40 mg PO DAILY 11/08/20 folic acid 1 mg PO DAILY 11/08/20 valacyclovir [Valtrex] 500 mg PO BID PRN 11/08/20 Current Visit Medications: Current Medications Generic Name Dose Route Start Last Admin Trade Name Freq PRN Reason Stop Dose Admin Hyoscyamine Sulfate 0.125 mg 11/09/20 21:05 Hyoscyamine 0.125 Mg Sl/Oral/Chew SL DIRECTED PRN Ringer's Solution 1,000 mls @ 80 mls/hr 11/10/20 06:00 IV 12/09/20 23:59 [facility] IV Miscellaneous Supplies 1 each 11/10/20 06:00 Iv Access IV 12/09/20 23:59 DIRECTED CAM Sodium Chloride 0 ml 11/10/20 06:00 Normal Saline Flush 10 Ml Syr IV 12/09/20 23:59 PRN PRN Sodium Chloride 0 ml 11/10/20 06:00 Normal Saline 10 Ml Vial IJ 12/09/20 23:59 DIRECTED PRN Sterile Water 0 ml 11/10/20 06:00 Water,Injection,Sterile 10 Ml Vial IJ 12/09/20 23:59 DIRECTED PRN PFSH Active Problems Active Problems: Problem Status Onset Code Degenerative joint disease of left hip M16.12 GERD (gastroesophageal reflux disease) K21.9 Tobacco abuse Z72.0 Lung cancer C34.90 History of lobectomy of lung ~09/11/18 Z90.2 Hx of adenomatous colonic polyps Z86.010 Change in bowel habits R19.4 Medical History Medical History Altered bowel function Anesthesia complication Per [facility] note: Pt. stated she has memory of waking during surgery in past Bilateral carpal tunnel syndrome Bronchial spasms (06/12/15) pt. 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, pt stated she had a breathing tube, had to have vocal therapy Surgical History Surgical History Appendectomy Arthroscopy, Shoulder 2 surgeries by 15 years 11/18/16-[facility] RIGHT SHOULDER Bladder mesh Cervical fusion De Quervain's tenosynovitis, right s/p release Fott neuroma Hemorrhoidectomy History of colonoscopy History of lobectomy of lung (~09/11/18) Knee Hematoma excision Ligation of fallopian tube Nose Oral Rotator Cuff Repair Bicep/tendon Status post ovarian cystectomy Status post right oophorectomy Tonsillectomy and adenoidectomy Tobacco Smoking/Tobacco Use Status: Former Tobacco Use Alcohol Alcohol Intake: never Substance Use Substance use type: does not use Vital Signs and Lab Results Vital Signs Most Recent Vital Signs in EMR: Most Recent Vital Signs Temp Pulse Resp BP Pulse Ox 36.4 C L 84 16 125/70 98 11/10/20 07:31 11/10/20 07:31 11/10/20 07:31 11/10/20 07:31 11/10/20 07:31 Lab Results Blood Type / Crossmatch: No Data to Display Complete Blood Count: White Blood Count 6.46 10^3/uL (4.4-10.8) 10/23/20 10:35 10/23/20 Red Blood Count 3.09 10^6/uL (3.93-5.22) L 10/23/20 10:35 10/23/20 Hemoglobin 10.3 g/dL (11.2-15.7) L 10/23/20 10:35 10/23/20 Hematocrit 31.1 % (36.0-46.0) L 10/23/20 10:35 10/23/20 Platelet Count 317 10^3/uL (130-400) 10/23/20 10:35 10/23/20 Complete Metabolic Panel: Sodium Level 138 mmol/L (136-145) 10/23/20 10:35 10/23/20 Potassium Level 4.3 mmol/L (3.5-5.1) 10/23/20 10:35 10/23/20 Chloride Level 102 mmol/L (98-107) 10/23/20 10:35 10/23/20 Carbon Dioxide Level 28.5 mmol/L (21.0-32.0) 10/23/20 10:35 10/23/20 Blood Urea Nitrogen 14 mg/dL (7-18) 10/23/20 10:35 10/23/20 Creatinine 1.0 mg/dL (0.55-1.02) 10/23/20 10:35 10/23/20 Magnesium Level 2.0 mg/dL (1.8-2.4) 10/23/20 10:35 10/23/20 Calcium Level 9.2 mg/dL (8.5-10.1) 10/23/20 10:35 10/23/20 Albumin 3.4 g/dL (3.4-5.0) 10/23/20 10:35 10/23/20 Glucose Level 122 mg/dL (74-106) H 10/23/20 10:35 10/23/20 Liver Function Panel: Alanine Aminotransferase (ALT/SGPT) 58 U/L (14-59) 10/23/20 10:35 10/23/20 Aspartate Amino Transf (AST/SGOT) 38 U/L (15-37) H 10/23/20 10:35 10/23/20 Coagulation Panel: No Data to Display Cardiac Panel: No Data to Display Arterial Blood Gas: No Data to Display Venous Blood Gas: No Data to Display Pancreas Panel: No Data to Display Thyroid Panel: Thyroid Stimulating Hormone (TSH) 1.65 uIU/mL (0.36-3.74) 10/23/20 10:35 10/23/20 Infectious Disease: No Data to Display Blood Cultures: No Data to Display Toxicology Panel: No Data to Display Anesthesia Assessment and Plan Anesthesia History Personal History: Awareness Under Anesthesia and Other (Temporary vocal cord paralysis) Family History: No Family History of Anesthesia Complications Exercise Tolerance Exercise Tolerance: Metabolic Equivalents>4 Pertinent Negatives Pertinent Negatives: No Symptoms of GERD, No Major Cardiovascular Symptoms or Complaints, No Major Pulmonary Symptoms or Complaints and No History of CVA/TIA Cardiac & Pulmonary Exam Cardiac Exam: Normal S1/S2 Heart Sounds Pulmonary Exam: Clear Bilateral Breath Sounds Airway Exam Known Difficult Airway: No Mallampati Class: 2 Mouth Opening: Normal (> 3cm) Thyromental Distance: Greater than 3 cm Neck Range of Motion: Full ROM Neck Circumference: Normal Teeth Condition: Normal Dentition Airway Comments: Multiple caps and crowns , top four front teeth capped ASA Classification ASA Score: ASA 3 Emergency Case?: No NPO Status NPO Status: NPO Clears >2 hours, Solids >8 hours Anesthesia Plan Resuscitation Status: Full Code Anesthesia Technique: General Anesthesia Airway Planned: Natural Airway Monitors Used: Standard Monitors
[2020-11-10 08:24] VITALS: BMI 25.6
[2020-11-10 09:16] LABS: Abs Immature Grans 0.03 10^3/uL (0.0-0.06); Absolute Basophil Count 0.02 10^3/uL (0.0-0.2); Absolute Eosinophil Count 0.04 10^3/uL (0.0-0.7); Absolute Lymphocyte Count 0.72 10^3/uL (1.2-3.4); Absolute Monocyte Count 0.44 10^3/uL (0.1-0.8); Absolute Neutrophil Count 4.12 10^3/uL (1.2-6.7); Basophils % 0.4; Eosinophils % 0.7; Immature Grans % 0.6; Lymphocytes % 13.4; MCH 33.1 pg (27.0-33.0); MCHC 33.3 % (32.0-36.0); MCV 99.3 fL (80-95); MPV 8.3 fL (8.0-11.0); Monocytes % 8.2; Neutrophils % 76.7; Nucleated RBC 0 %; Platelet Count 265 10^3/uL (130-400); RBC 3.02 10^6/uL (3.93-5.22); RDW 14.6 % (11.7-14.6); RDW-SD 53.1 fL; WBC 5.37 10^3/uL (4.4-10.8)
[2020-11-10 09:26] LABS: Prothrombin Time 10.4 sec (9.3-11.0)
--- NOTE | 2020-11-10 10:36 | BOWEL_PTH ---
PATIENT: Sarah Duckworth LOC: [facility] U#:[id number] AGE/SX: 70/F ROOM: RE11/10/[address]: Radha Holloway : 1950 BED: DIS: 11/10/2020 SPEC #: [id number] RECD: 11/10/20 12:24 STATUS: POONAM REQ #: [id number] PASCUAL: 11/10/20 10:[address]: Radha Holloway DEPT: Surgical Specimen RECD BY: Lora Choudhury ENTERED: 11/10/20 12:25 SP TYPE: Bowel OTHR DR: Mihai Saunders Tissues: 1 - BIOPSY BOWEL 2 - BIOPSY BOWEL 3 - BIOPSY BOWEL 4 - BIOPSY BOWEL Procedures: GROSS AND MICRO LEVEL 4 Comments: [id number]
--- NOTE | 2020-11-10 10:46 | W.PM.OP ---
Date of service: 11/10/20 Time of Service: 10:46 Operative Note Operative Note DATE OF PROCEDURE: 11/10/20 PRE-OP DIAGNOSIS: C. diff/t. adenoma POST-OP DIAGNOSIS: other (divertic ) PROCEDURE: flex sig w/ bx SURGEON: Radha Holloway ANESTHESIA TYPE: General:No Airway Refer to Anesthesia Record ESTIMATED BLOOD LOSS: 1 PATHOLOGY: other COMPLICATIONS: None Patient was transported to: same day Patient's condition: stable Procedure Description: After informed consent was obtained the patient was taken to the procedure room and placed in a left decubitous position. Monitors were applied and a time out was done. The patients name, date of , procedure, allergies to medications and metal in their body was reviewed. The patient was then sedated. Once sedated and comfortable a rectal exam was done. External exam was normal. Internal exam revealed a normal sphincter tone and no palpable masses. The scope was then introduced and retrofelexed. no internal hemorrhoids were identified. The scope was then advanced to the transverse colon w/out difficulty. Once we get to the transverse colon, the patient starts to develop some mild respiratory symptoms and there is a concern for aspiration-because of the pressure of the dilated colon on the diaphragm, and procedure was abandoned for patient safety. The prep was good. The scope was then slowly retracted over 7 minutes back into the rectum. There were no polyps apparent. She had 1 or 2 small diverticula. The mucosa and vascular pattern appears normal. Biopsy was taken 15, 30, 20, and 15 cm. Also has used retrieved and no bleeding is noted. 20 to 15cm there is some edema within the colon wall, and there is some narrowing of the lumen. The tissues. Soft and pliable this is nowhere near neobladder stricture in the. there is no signs of any diverticular disease at this area or malignancy. I do not have a reason for why there is a mild amount of narrowing in this area,-it is not dangerously narrow and as long as she avoids constipation, it should not be a problem for her. She does not have significant diverticular disease nor is he ever noted any significant history of diverticulitis.. The scope was removed and the patient was woken up and taken back to Same day surgery in stable condition. The patient tolerated the procedure well and there were no immediate complications. Follow up: The patient does not require any further follow-up colonoscopy, unless they develop changes in bowel habits or other new gastrointestinal complaints.
[2020-11-10 10:50] VITALS: BP 143/72; PULSE 81; RESP 16; TEMP 36.4; O2SAT 98
[2020-11-10] MEDS: Heparin 500 UNITS/5 ML SYRINGE IVP (11:12)
[2020-11-10] MEDS: Normal Saline Flush 10 ML SYR IV (11:13)
[2020-11-10 11:24] VITALS: BP 133/69; PULSE 85; RESP 16; TEMP 36.6; O2SAT 98
--- NOTE | 2020-11-10 12:01 | W.ANESPOSTOP ---
Postoperative Evaluation Date, Time and Location Date Performed: 11/10/20 Time Performed: 11:25 Patient Location: Day Surgery Unit Vital Signs Most Recent Imported Vital Signs: Most Recent Vital Signs Temp Pulse Resp BP Pulse Ox 36.6 C 85 16 133/69 98 11/10/20 11:24 11/10/20 11:24 11/10/20 11:24 11/10/20 11:24 11/10/20 11:24 Assessment Mental Status: Awake (Alert & Oriented to Patient Baseline) Airway and Respiratory Function: Patent airway with normal (patient baseline) respiratory exam Cardiovascular Function: Hemodynamically Stable Hydration Status: Adequately Hydrated Nausea & Vomiting: No Nausea or Vomiting Pain: Pt. Denies Any Pain Peripheral Nerve Block: Patient did not receive a nerve block
--- NOTE | 2020-11-10 12:10 | PDOC.DSDIS_ITS ---
Discharge Plan Disposition Patient Disposition: HOME Condition: Good Discharge Details Reason For Visit: SCREENING HX OF POLYPS Attending Provider: Radha Holloway Primary Care Provider: Mihai Saunders Home Meds and New Rx's Prescriptions: Continued Centrum Silver Women 1 EACH tablet 1 ea PO DAILY RF: 0 glucosam-chond px-ndnige-wc ac 1 EACH capsule 1 ea PO DAILY RF: 0 triamcinolone acetonide 60 ML lotion 1 ml Topical BID PRNQty: 1 RF: 1 cholecalciferol (vitamin D3) 5,000 UNIT capsule 5,000 unit PO DAILY RF: 0 vitamin B complex 1 EACH capsule 1 ea PO DAILY RF: 0 areds 2 1 tab PO DAILY RF: 0 apple cider vinegar 600 mg capsule 600 mg PO DAILY RF: 0 calcium carbonate [Calcium 500] 500 mg calcium (1,250 mg) tablet 1,250 mg PO DAILY RF: 0 fluoride (sodium) [PreviDent 5000 Dry Mouth] 1.1 % gel 1 applic DT DAILY RF: 0 Probiotic 3 billion cell capsule 3,000 mmu cells PO DAILY RF: 0 ascorbic acid (vitamin C) 500 mg capsule 500 mg PO DAILY RF: 0 famotidine [Pepcid] 40 mg Tablet 40 mg PO DAILY RF: 0 valacyclovir [Valtrex] 500 mg tablet 500 mg PO BID PRNRF: 0 folic acid 1 mg Tablet 1 mg PO DAILY RF: 0 cephalexin 500 mg Capsule RF: 0 Discontinued bisacodyl [Dulcolax (bisacodyl)] 5 mg tablet,delayed release (DR/EC) 5 mg PO ONCE Qty: 4 RF: 0 polyethylene glycol 3350 17 gram/dose powder 238 g PO ONCE Qty: 238 RF: 0 Discharge Instructions Additional Instructions: DSU Colonoscopy Post- Op Instructions Instructions for Everyone who is given Anesthesia: For your safety, please do the following for the next twenty-four (24) hours: *Do Not operate a motor vehicle (car, truck, motorcycle, etc.) *Do Not drink alcoholic beverages or use any recreational drugs for the first 24 hours or while taking pain medications. The medications in your body may have a reaction that can be dangerous. *Do Not make any important decisions or sign any important papers. Findings:mild narrowing in rectal-sigmoid region Follow up: w/ oncology as directed 1. No lifting over 20 pounds or strenuous activity for the first 24 hours after your procedure. After 24 hours there are no restrictions on your activity but you may feel fatigued for a few days. 2. After you arrive home you may have a light meal and return to your normal diet as you can tolerate it without feeling sick to your stomach. 3. You may have a bloated, gaseous feeling in your belly (abdomen) after a colonoscopy. Passing gas and belching will help. Walking or lying down on your left side with your knees flexed may relieve the discomfort. Call the office at [phone] (Office) or [phone] (Hospital) right away if you notice any of the following: a.Vomiting of blood or ?coffee ground stools?. b.Rectal bleeding 1Tbsp, blood clots or continuous bleeding. c.Severe belly (abdominal) pain. d.A hard distended belly (abdomen) and an inability to pass gas. 4. Please don?t expect to have a normal BM (bowel movement) for 2-3 days after your procedure. 5. If there are questions regarding the findings of your procedure, please contact your doctor 6. If you are unable to contact your doctor with a problem, contact the hospital at [phone]. 7. Continue all your regular medications unless directed otherwise. I understand the above instructions and have no questions. Signature of Patient or Adult Escort Name of Responsible Adult Escort Signature of Nurse Date/Time DS: Diagnosis Discharge Diagnosis (1) Stage 4 lung cancer: Status: Acute (2) Hx of Clostridium difficile infection: Status: Acute
--- NOTE | 2020-11-10 22:15 | W.COLOREPORT ---
Date of service: 11/10/20 Time of Service: 09:00 Colonoscopy Report Date of procedure: 11/10/20 Pre-op diagnosis general: hx of A. polyps and C. diff. Surgeon: Radha Holloway Anesthesia Type: General LMA/ETT Estimated blood loss (mL): 1 Pathology: other Complications: None Disposition: same day Prep: Miralax/Dulcolax Retraction Time: 7 Procedure Description: After informed consent was obtained the patient was taken to the procedure room and placed in a left decubitous position. Monitors were applied and a time out was done. The patients name, date of , procedure, allergies to medications and metal in their body was reviewed. The patient was then sedated. Once sedated and comfortable a rectal exam was done. External exam was normal. Internal exam revealed a normal sphincter tone and no palpable masses. The scope was then introduced and retrofelexed. no internal hemorrhoids were identified. The scope was then advanced to the transverse colon w/out difficulty. Once we get to the transverse colon, the patient starts to develop some mild respiratory symptoms and there is a concern for aspiration-because of the pressure of the dilated colon on the diaphragm, and procedure was abandoned for patient safety. The prep was good. The scope was then slowly retracted over 7 minutes back into the rectum. There were no polyps apparent. She had 1 or 2 small diverticula. The mucosa and vascular pattern appears normal. Biopsy was taken 15, 30, 20, and 15 cm. All specimens are retrieved and no bleeding is noted. At 20 to 15cm there is some edema within the colon wall, and there is a mild narrowing of the lumen. The tissues are soft and pliable. This may be the cause of her changes in the bowel caliber. She has noted the changes in her bowels since prior to C. difficile. This does not require any dilation. The colonoscope easily passes through it. there is no diverticular disease or malignancy in this area. I do not have a reason for why there is a mild amount of narrowing in this area,-it is not dangerously narrow, and as long as she avoids constipation, it should not be a problem for her. ( She does not have significant diverticular disease nor is he ever noted any significant history of diverticulitis.). The scope was removed and the patient was woken up and taken back to Same day surgery in stable condition. The patient tolerated the procedure well and there were no immediate complications. Follow up: The patient does not require any further follow-up colonoscopy, unless they develop changes in bowel habits or other new gastrointestinal complaints.
== END 2020-11-10 12:20 | disposition home or self-care (01) ==
PROVIDERS: PCP Neuromusculoskeletal Medicine & OMM; Visit Provider Surgery
PROC: 0DJD8ZZ Inspection of Lower Intestinal Tract, Via Natural or Artificial Opening Endoscopic (ICD-10-PCS; CPT 45378; principal; 2020-11-10 08:15)
DX: Z12.11 Encounter for screening for malignant neoplasm of colon (principal); K63.89 Other specified diseases of intestine; Z86.010 Personal history of colon polyps; I10 Essential (primary) hypertension; J44.9 Chronic obstructive pulmonary disease, unspecified
CPT/HCPCS: 45380; 36415; 88305; 85025; 85610; J2001

== ENCOUNTER 2020-12-04 02:51 | Outpatient (RCR) | payer MEDICARE, BC, SELFPAY ==
[2020-11-13] MEDS: Normal Saline Flush 10 ML SYR IVP (07:37)
[2020-11-13 07:39] LABS: Abs Immature Grans 0.01 10^3/uL (0.0-0.06); Absolute Basophil Count 0.04 10^3/uL (0.0-0.2); Absolute Eosinophil Count 0.11 10^3/uL (0.0-0.7); Absolute Lymphocyte Count 0.86 10^3/uL (1.2-3.4); Absolute Monocyte Count 0.59 10^3/uL (0.1-0.8); Absolute Neutrophil Count 4.41 10^3/uL (1.2-6.7); Basophils % 0.7; Eosinophils % 1.8; HCT 29.6 % (36.0-46.0); HGB 9.8 g/dL (11.2-15.7); Immature Grans % 0.2; Lymphocytes % 14.3; MCH 33.2 pg (27.0-33.0); MCHC 33.1 % (32.0-36.0); MCV 100.3 fL (80-95); MPV 8.5 fL (8.0-11.0); Monocytes % 9.8; Neutrophils % 73.2; Nucleated RBC 0 %; Platelet Count 280 10^3/uL (130-400); RBC 2.95 10^6/uL (3.93-5.22); RDW 14.7 % (11.7-14.6); RDW-SD 53.9 fL; WBC 6.02 10^3/uL (4.4-10.8)
[2020-11-13 08:03] LABS: ALT 55 U/L (14-59); AST 43 U/L (15-37); Albumin 3.3 g/dL (3.4-5.0); Alkaline Phosphatase 157 U/L (46-116); Anion Gap 8.2 mmol/L (3-11); BUN 13 mg/dL (7-18); Bilirubin, Total 0.4 mg/dL (0.2-1.0); CO2 27.8 mmol/L (21.0-32.0); Calcium 9.3 mg/dL (8.5-10.1); Chloride 102 mmol/L (98-107); Estimated GFR 54.66 (mL/min/1.73m2); FREE T4 1.19 ng/dL (0.76-1.46); Glucose 106 mg/dL (74-106); Potassium 4.7 mmol/L (3.5-5.1); Sodium 138 mmol/L (136-145); TSH 0.68 uIU/mL (0.36-3.74); Total Protein 6.8 g/dL (6.4-8.2)
[2020-12-04] MEDS: Normal Saline Flush 10 ML SYR IVP (07:49)
[2020-12-04 07:51] LABS: Abs Immature Grans 0.02 10^3/uL (0.0-0.06); Absolute Basophil Count 0.05 10^3/uL (0.0-0.2); Absolute Eosinophil Count 0.06 10^3/uL (0.0-0.7); Absolute Lymphocyte Count 0.64 10^3/uL (1.2-3.4); Absolute Neutrophil Count 3.85 10^3/uL (1.2-6.7); Eosinophils % 1.1; HCT 30.9 % (36.0-46.0); Immature Grans % 0.4; Lymphocytes % 12.3; MCH 33.2 pg (27.0-33.0); MCHC 32.4 % (32.0-36.0); MCV 102.7 fL (80-95); MPV 8.5 fL (8.0-11.0); Monocytes % 11.5; Neutrophils % 73.7; Nucleated RBC 0 %; Platelet Count 341 10^3/uL (130-400); RBC 3.01 10^6/uL (3.93-5.22); RDW 14.8 % (11.7-14.6); RDW-SD 55.8 fL; WBC 5.22 10^3/uL (4.4-10.8)
[2020-12-04 08:29] LABS: ALT 30 U/L (14-59); AST 21 U/L (15-37); Albumin 3.4 g/dL (3.4-5.0); Alkaline Phosphatase 140 U/L (46-116); Anion Gap 7.6 mmol/L (3-11); BUN 15 mg/dL (7-18); Bilirubin, Total 0.4 mg/dL (0.2-1.0); CO2 27.4 mmol/L (21.0-32.0); Calcium 9.3 mg/dL (8.5-10.1); Chloride 103 mmol/L (98-107); Estimated GFR 54.66 (mL/min/1.73m2); FREE T4 1.19 ng/dL (0.76-1.46); Glucose 111 mg/dL (74-106); Magnesium 2.1 mg/dL (1.8-2.4); Potassium 4.4 mmol/L (3.5-5.1); Sodium 138 mmol/L (136-145); Total Protein 6.8 g/dL (6.4-8.2)
== END 2020-12-06 23:59 | disposition home or self-care (01) ==
LOC: INF 02:51
PROVIDERS: PCP Neuromusculoskeletal Medicine & OMM; Visit Provider Internal Medicine Medical Oncology
DX: C34.91 Malignant neoplasm of unspecified part of right bronchus or lung (principal); Z79.899 Other long term (current) drug therapy; Z45.2 Encounter for adjustment and management of vascular access device; R93.89 Abnormal findings on diagnostic imaging of other specified body structures
CPT/HCPCS: 36591; 80053; 83735; 84439; 84443; 85025

== ENCOUNTER 2020-12-07 03:22 | Outpatient (CLI) | payer MEDICARE, BC, SELFPAY ==
--- NOTE | 2020-12-07 08:30 | DI.RAD_ITS ---
Exam(s) RF JOINT INJECTION FLUORO GUID EXAM: RF JOINT INJECTION FLUORO GUID CLINICAL HISTORY: L HIP INJ UNDER FLUORO, degenerative joint disease lt hip, M16.12 TECHNIQUE: Fluoroscopy provided. Radiologist not present. CONTRAST MATERIAL: None COMPARISON: No exams were available for comparison FINDINGS: Fluoroscopy was provided for therapeutic left hip injection Submitted image(s) reveal needle placement lateral aspect of the junction of the upper femoral neck a nd femoral head. Contrast injected Please refer to the procedure report for complete details. Cumulative Dose: kam Antonio=7.82 mGy IMPRESSION: RADIATION DOSE DELIVERED:
--- NOTE | 2020-12-07 14:27 | OPPNE_ITS ---
Date of service: 12/07/20 Time of Service: 14:21 Procedure Note Date of procedure: 12/07/20 Procedure: Left Hip Injection with Fluoroscopic Guidance Surgeon/Proceduralist/Physician: César Ambriz Procedure Diagnosis: Left Hip Osteoarthritis Procedure Indications: Sarah has had persistent pain of the LEFT hip and groin. Noninvasive measures have been tried. She has had previous success with an injection, therefore, an injection under fluoroscopy was recommended. I had discussed the risks of the procedure and the patient elected to proceed. Procedure Description: Sarah was greeted in the flouroscopy room. The correct side was identified and the consent was reviewed with the patient and signed. The patient was then placed in the supine position on the fluoroscopy table. The LEFT hip was then prepped with Chloraprep. The anterolateral injection starting point was identiifed by bony landmarks and fluoroscopy. The skin and soft tissue in the tract of the injection was anesthetized with 1% Lidocaine. A spinal needle was then inserted deep into the hip joint at the level of the lateral femoral neck under fluorosc opic guidance. A small amount of Omnipaque solution was injected to confirm intraarticular placement. Once confirmed, the hip was injected with 6cc of 0.5% Bupivicaine and 80mg of Depo-Medrol. A bandaid was placed on the injection site. The patient tolerated the procedure well and noted improvement in pre- injection pain.
[2020-12-07] MEDS: Omnipaque 300 MG/ML 10 ML BTL IJ (14:28)
[2020-12-07] MEDS: Bupivacaine 0.5% Pres-Free 10 ML VIAL IJ (14:28)
[2020-12-07] MEDS: methylPREDNISolone ACETATE 80 MG/ML VIAL IM (14:29)
== END 2020-12-07 03:42 ==
PROVIDERS: PCP Neuromusculoskeletal Medicine & OMM; Visit Provider Student in an Organized Health Care Education/Training Program
DX: M16.12 Unilateral primary osteoarthritis, left hip (principal); M25.552 Pain in left hip; R10.32 Left lower quadrant pain
CPT/HCPCS: 20610; 77002; J1040

== ENCOUNTER 2020-12-25 13:30 | Outpatient (RCR) | payer MEDICARE, BC, SELFPAY ==
[2020-12-25] MEDS: Normal Saline Flush 10 ML SYR IVP (13:41)
[2020-12-25 13:44] LABS: Abs Immature Grans 0.02 10^3/uL (0.0-0.06); Absolute Basophil Count 0.05 10^3/uL (0.0-0.2); Absolute Eosinophil Count 0.09 10^3/uL (0.0-0.7); Absolute Lymphocyte Count 1.08 10^3/uL (1.2-3.4); Absolute Monocyte Count 0.64 10^3/uL (0.1-0.8); Absolute Neutrophil Count 2.94 10^3/uL (1.2-6.7); Eosinophils % 1.9; HCT 31.6 % (36.0-46.0); HGB 10.3 g/dL (11.2-15.7); Immature Grans % 0.4; Lymphocytes % 22.4; MCH 33.1 pg (27.0-33.0); MCHC 32.6 % (32.0-36.0); MCV 101.6 fL (80-95); MPV 8.6 fL (8.0-11.0); Monocytes % 13.3; Nucleated RBC 0 %; Platelet Count 307 10^3/uL (130-400); RBC 3.11 10^6/uL (3.93-5.22); RDW 15.1 % (11.7-14.6); RDW-SD 55.3 fL; WBC 4.82 10^3/uL (4.4-10.8)
[2020-12-25 14:11] LABS: ALT 40 U/L (14-59); AST 24 U/L (15-37); Albumin 3.4 g/dL (3.4-5.0); Alkaline Phosphatase 147 U/L (46-116); Anion Gap 6.6 mmol/L (3-11); BUN 10 mg/dL (7-18); Bilirubin, Total 0.4 mg/dL (0.2-1.0); CO2 28.4 mmol/L (21.0-32.0); Calcium 9.2 mg/dL (8.5-10.1); Chloride 102 mmol/L (98-107); Estimated GFR 54.66 (mL/min/1.73m2); FREE T4 1.09 ng/dL (0.76-1.46); Glucose 147 mg/dL (74-106); Potassium 3.8 mmol/L (3.5-5.1); Sodium 137 mmol/L (136-145); TSH 1.32 uIU/mL (0.36-3.74); Total Protein 6.7 g/dL (6.4-8.2)
== END 2021-01-06 23:59 | disposition home or self-care (01) ==
LOC: INF 13:30
PROVIDERS: PCP Neuromusculoskeletal Medicine & OMM; Visit Provider Internal Medicine Medical Oncology
DX: C34.91 Malignant neoplasm of unspecified part of right bronchus or lung (principal); Z79.899 Other long term (current) drug therapy; Z45.2 Encounter for adjustment and management of vascular access device
CPT/HCPCS: 36591; 80053; 83735; 84439; 84443; 85025

== ENCOUNTER 2021-02-05 10:00 | Outpatient (RCR) | payer MEDICARE, BC, SELFPAY ==
[2021-01-15] MEDS: Normal Saline Flush 10 ML SYR IVP (09:08)
[2021-01-15 09:27] LABS: Abs Immature Grans 0.08 10^3/uL (0.0-0.06); Absolute Basophil Count 0.06 10^3/uL (0.0-0.2); Absolute Eosinophil Count 0.17 10^3/uL (0.0-0.7); Absolute Lymphocyte Count 1.08 10^3/uL (1.2-3.4); Absolute Monocyte Count 0.74 10^3/uL (0.1-0.8); Absolute Neutrophil Count 6.69 10^3/uL (1.2-6.7); Basophils % 0.7; Eosinophils % 1.9; HCT 36.8 % (36.0-46.0); HGB 11.8 g/dL (11.2-15.7); Immature Grans % 0.9; Lymphocytes % 12.2; MCH 31.6 pg (27.0-33.0); MCHC 32.1 % (32.0-36.0); MCV 98.7 fL (80-95); MPV 8.6 fL (8.0-11.0); Monocytes % 8.4; Neutrophils % 75.9; Nucleated RBC 0 %; Platelet Count 282 10^3/uL (130-400); RBC 3.73 10^6/uL (3.93-5.22); RDW 14.1 % (11.7-14.6); RDW-SD 50.6 fL; WBC 8.82 10^3/uL (4.4-10.8)
[2021-01-15 09:49] LABS: ALT 36 U/L (14-59); AST 18 U/L (15-37); Albumin 3.4 g/dL (3.4-5.0); Alkaline Phosphatase 151 U/L (46-116); Anion Gap 5.8 mmol/L (3-11); BUN 14 mg/dL (7-18); Bilirubin, Total 0.5 mg/dL (0.2-1.0); CO2 29.2 mmol/L (21.0-32.0); CREATININE 0.8 mg/dL (0.55-1.02); Calcium 9.5 mg/dL (8.5-10.1); Chloride 97 mmol/L (98-107); FREE T4 1.08 ng/dL (0.76-1.46); Glucose 122 mg/dL (74-106); Potassium 4.3 mmol/L (3.5-5.1); Sodium 132 mmol/L (136-145); TSH 2.07 uIU/mL (0.36-3.74); Total Protein 6.8 g/dL (6.4-8.2)
[2021-02-05] MEDS: Normal Saline Flush 10 ML SYR IVP (10:32)
[2021-02-05 10:44] LABS: Abs Immature Grans 0.15 10^3/uL (0.0-0.06); Absolute Basophil Count 0.06 10^3/uL (0.0-0.2); Absolute Eosinophil Count 0.03 10^3/uL (0.0-0.7); Absolute Lymphocyte Count 0.79 10^3/uL (1.2-3.4); Absolute Monocyte Count 0.38 10^3/uL (0.1-0.8); Absolute Neutrophil Count 8.59 10^3/uL (1.2-6.7); Basophils % 0.6; Eosinophils % 0.3; HCT 35.6 % (36.0-46.0); HGB 11.2 g/dL (11.2-15.7); Immature Grans % 1.5; Lymphocytes % 7.9; MCH 30.9 pg (27.0-33.0); MCHC 31.5 % (32.0-36.0); MCV 98.3 fL (80-95); MPV 8.4 fL (8.0-11.0); Monocytes % 3.8; Neutrophils % 85.9; Nucleated RBC 0 %; Platelet Count 381 10^3/uL (130-400); RBC 3.62 10^6/uL (3.93-5.22); RDW 14.3 % (11.7-14.6); RDW-SD 51.7 fL
[2021-02-05 11:14] LABS: Magnesium 2.1 mg/dL (1.8-2.4)
[2021-02-05 11:27] LABS: ALT 38 U/L (14-59); AST 24 U/L (15-37); Albumin 3.5 g/dL (3.4-5.0); Alkaline Phosphatase 144 U/L (46-116); BUN 10 mg/dL (7-18); Bilirubin, Total 0.3 mg/dL (0.2-1.0); CREATININE 0.9 mg/dL (0.55-1.02); Calcium 9.8 mg/dL (8.5-10.1); Chloride 99 mmol/L (98-107); FREE T4 1.22 ng/dL (0.76-1.46); Glucose 125 mg/dL (74-106); Potassium 4.3 mmol/L (3.5-5.1); Sodium 135 mmol/L (136-145); TSH 0.95 uIU/mL (0.36-3.74); Total Protein 7.1 g/dL (6.4-8.2)
== END 2021-02-06 23:59 | disposition home or self-care (01) ==
LOC: INF 10:00
PROVIDERS: PCP Neuromusculoskeletal Medicine & OMM; Visit Provider Internal Medicine Medical Oncology
DX: C34.91 Malignant neoplasm of unspecified part of right bronchus or lung (principal); Z79.899 Other long term (current) drug therapy; R93.89 Abnormal findings on diagnostic imaging of other specified body structures; Z45.2 Encounter for adjustment and management of vascular access device
CPT/HCPCS: 36591; 80053; 83735; 84439; 84443; 85025

== ENCOUNTER 2021-02-26 03:31 | Outpatient (RCR) | payer MEDICARE, BC, SELFPAY ==
[2021-02-26] MEDS: Normal Saline Flush 10 ML SYR IVP (13:49)
[2021-02-26 14:10] LABS: Abs Immature Grans 0.06 10^3/uL (0.0-0.06); Absolute Basophil Count 0.05 10^3/uL (0.0-0.2); Absolute Eosinophil Count 0.01 10^3/uL (0.0-0.7); Absolute Lymphocyte Count 0.69 10^3/uL (1.2-3.4); Absolute Monocyte Count 0.44 10^3/uL (0.1-0.8); Absolute Neutrophil Count 6.06 10^3/uL (1.2-6.7); Basophils % 0.7; Eosinophils % 0.1; HCT 33.9 % (36.0-46.0); HGB 10.7 g/dL (11.2-15.7); Immature Grans % 0.8; Lymphocytes % 9.4; MCH 31.3 pg (27.0-33.0); MCHC 31.6 % (32.0-36.0); MCV 99.1 fL (80-95); MPV 8.4 fL (8.0-11.0); Nucleated RBC 0 %; Platelet Count 351 10^3/uL (130-400); RBC 3.42 10^6/uL (3.93-5.22); RDW 15.4 % (11.7-14.6); RDW-SD 54.3 fL; WBC 7.31 10^3/uL (4.4-10.8)
[2021-02-26 14:26] LABS: Magnesium 2.1 mg/dL (1.8-2.4)
[2021-02-26 14:39] LABS: ALT 45 U/L (14-59); AST 18 U/L (15-37); Albumin 3.4 g/dL (3.4-5.0); Alkaline Phosphatase 138 U/L (46-116); Anion Gap 5.2 mmol/L (3-11); BUN 15 mg/dL (7-18); Bilirubin, Total 0.4 mg/dL (0.2-1.0); CO2 31.8 mmol/L (21.0-32.0); CREATININE 0.9 mg/dL (0.55-1.02); Calcium 9.5 mg/dL (8.5-10.1); Chloride 102 mmol/L (98-107); FREE T4 0.94 ng/dL (0.76-1.46); Glucose 164 mg/dL (74-106); Potassium 4.3 mmol/L (3.5-5.1); Sodium 139 mmol/L (136-145); TSH 0.48 uIU/mL (0.36-3.74); Total Protein 6.7 g/dL (6.4-8.2)
== END 2021-03-08 23:59 | disposition home or self-care (01) ==
LOC: INF 03:31
PROVIDERS: PCP Neuromusculoskeletal Medicine & OMM; Visit Provider Internal Medicine Medical Oncology
DX: C34.91 Malignant neoplasm of unspecified part of right bronchus or lung (principal); Z79.899 Other long term (current) drug therapy; Z45.2 Encounter for adjustment and management of vascular access device; R93.89 Abnormal findings on diagnostic imaging of other specified body structures
CPT/HCPCS: 36591; 80053; 83735; 84439; 84443; 85025

== ENCOUNTER 2021-03-19 01:20 | Outpatient (RCR) | payer MEDICARE, BC, SELFPAY ==
[2021-03-19] MEDS: Normal Saline Flush 10 ML SYR IVP (12:45)
[2021-03-19 13:32] LABS: Abs Immature Grans 0.07 10^3/uL (0.0-0.06); Absolute Basophil Count 0.03 10^3/uL (0.0-0.2); Absolute Eosinophil Count 0.01 10^3/uL (0.0-0.7); Absolute Lymphocyte Count 0.64 10^3/uL (1.2-3.4); Absolute Monocyte Count 0.33 10^3/uL (0.1-0.8); Absolute Neutrophil Count 6.51 10^3/uL (1.2-6.7); Basophils % 0.4; Eosinophils % 0.1; HCT 35.1 % (36.0-46.0); HGB 11.2 g/dL (11.2-15.7); Immature Grans % 0.9; Lymphocytes % 8.4; MCH 31.2 pg (27.0-33.0); MCHC 31.9 % (32.0-36.0); MCV 97.8 fL (80-95); Monocytes % 4.3; Neutrophils % 85.9; Nucleated RBC 0 %; Platelet Count 395 10^3/uL (130-400); RBC 3.59 10^6/uL (3.93-5.22); RDW 16.2 % (11.7-14.6); RDW-SD 58.3 fL; WBC 7.59 10^3/uL (4.4-10.8)
[2021-03-19 13:57] LABS: ALT 31 U/L (14-59); AST 18 U/L (15-37); Albumin 3.5 g/dL (3.4-5.0); Alkaline Phosphatase 125 U/L (46-116); BUN 14 mg/dL (7-18); Bilirubin, Total 0.4 mg/dL (0.2-1.0); Calcium 9.5 mg/dL (8.5-10.1); Chloride 102 mmol/L (98-107); FREE T4 1.06 ng/dL (0.76-1.46); Glucose 225 mg/dL (74-106); Magnesium 2.1 mg/dL (1.8-2.4); Potassium 4.6 mmol/L (3.5-5.1); Sodium 138 mmol/L (136-145); TSH 0.64 uIU/mL (0.36-3.74); Total Protein 6.8 g/dL (6.4-8.2)
== END 2021-04-08 23:59 | disposition home or self-care (01) ==
LOC: INF 01:20
PROVIDERS: PCP Neuromusculoskeletal Medicine & OMM; Visit Provider Internal Medicine Medical Oncology
DX: C34.91 Malignant neoplasm of unspecified part of right bronchus or lung (principal); Z79.899 Other long term (current) drug therapy; Z45.2 Encounter for adjustment and management of vascular access device; R93.89 Abnormal findings on diagnostic imaging of other specified body structures
CPT/HCPCS: 36591; 80053; 83735; 84439; 84443; 85025

== ENCOUNTER → 2021-04-18 12:49 | Outpatient (BNVA) | payer MEDICARE, BC, SELFPAY | PROVIDERS: PCP Neuromusculoskeletal Medicine & OMM; Referring Provider Neuromusculoskeletal Medicine & OMM | DX: Z01.818 Encounter for other preprocedural examination (principal); M16.12 Unilateral primary osteoarthritis, left hip ==

== ENCOUNTER 2021-04-30 03:35 | Outpatient (CLI) | payer MEDICARE, BC, SELFPAY ==
[2021-04-30 10:35] LABS: Abs Immature Grans 0.05 10^3/uL (0.0-0.06); Absolute Basophil Count 0.05 10^3/uL (0.0-0.2); Absolute Eosinophil Count 0.03 10^3/uL (0.0-0.7); Absolute Lymphocyte Count 0.73 10^3/uL (1.2-3.4); Absolute Monocyte Count 0.28 10^3/uL (0.1-0.8); Absolute Neutrophil Count 9.45 10^3/uL (1.2-6.7); Basophils % 0.5; Eosinophils % 0.3; HCT 39.8 % (36.0-46.0); HGB 12.8 g/dL (11.2-15.7); Immature Grans % 0.5; Lymphocytes % 6.9; MCH 31.4 pg (27.0-33.0); MCHC 32.2 % (32.0-36.0); MCV 97.5 fL (80-95); MPV 8.7 fL (8.0-11.0); Monocytes % 2.6; Neutrophils % 89.2; Nucleated RBC 0 %; Platelet Count 300 10^3/uL (130-400); RBC 4.08 10^6/uL (3.93-5.22); RDW 14.7 % (11.7-14.6); RDW-SD 53.2 fL; WBC 10.59 10^3/uL (4.4-10.8)
[2021-04-30 12:12] LABS: Anion Gap 7.9 mmol/L (3-11); BUN 16 mg/dL (7-18); CO2 30.1 mmol/L (21.0-32.0); CREATININE 0.8 mg/dL (0.55-1.02); Calcium 10.1 mg/dL (8.5-10.1); Chloride 102 mmol/L (98-107); Glucose 149 mg/dL (74-106); Potassium 4.4 mmol/L (3.5-5.1); Sodium 140 mmol/L (136-145)
[2021-04-30 13:36] LABS: Source Nasal/Nares
[2021-04-30 17:39] LABS: COVID-19 PCR Negative (Negative)
== END 2021-04-30 03:36 | disposition home or self-care (01) ==
LOC: LBO 03:35
PROVIDERS: PCP Neuromusculoskeletal Medicine & OMM; Visit Provider Student in an Organized Health Care Education/Training Program
DX: M16.12 Unilateral primary osteoarthritis, left hip; Z20.822 Contact with and (suspected) exposure to COVID-19; Z01.818 Encounter for other preprocedural examination
CPT/HCPCS: 36415; 80048; 86850; 86900; 86901; 87635; 85025

== ENCOUNTER 2021-05-02 06:00 | Day surgery (SDC) | payer MEDICARE, BC, SELFPAY ==
--- NOTE | 2021-05-01 14:33 | ANES.PREOP_ITS ---
General Info Date of Service Date Performed: 05/02/21 Height: 5 ft 4.5 in Weight: 66.224 kg Body Mass Index (BMI): 24.6 Surgical Procedure: Operation Date: 05/02/21 07:50 Proposed Procedures Side Surgeon p Hip Total Hip Anterior Left César Ambriz MD Meds Allergies and Home Medications Allergies Allergy/AdvReac Type Severity Reaction Status Date / Time amoxicillin trihydrate AdvReac Intermediate GI Upset Verified 05/02/21 06:24 [From Augmentin] potassium clavulanate AdvReac Intermediate GI Upset Verified 05/02/21 06:24 [From Augmentin] Home Medication Medication Instructions Recorded Centrum Silver Women 1 ea PO DAILY 03/02/15 glucosam-chond ur-cibgrf-ri ac 1 ea PO DAILY 03/02/15 triamcinolone acetonide 1 ml TOPICAL BID PRN #1 bottle 12/18/15 Areds 2 1 tab PO DAILY 10/29/16 cholecalciferol (vitamin D3) 5,000 unit PO DAILY 10/29/16 vitamin B complex 1 ea PO DAILY 10/29/16 apple cider vinegar 600 mg capsule 600 mg PO DAILY 07/29/19 ascorbic acid (vitamin C) 500 mg 500 mg PO DAILY 07/29/19 capsule calcium carbonate 500 mg calcium 1,250 mg PO DAILY tab 07/29/19 (1,250 mg) tablet fluoride (sodium) 1.1 % dental gel 1 applic DT DAILY 07/29/19 lactobacillus combination no.4 3 3,000 mmu cells PO DAILY 07/29/19 billion cell capsule famotidine [Pepcid] 40 mg PO DAILY 11/08/20 folic acid 1 mg PO DAILY 11/08/20 valacyclovir [Valtrex] 500 mg PO BID PRN 11/08/20 prednisone 10 mg tablet 10 mg PO DAILY 04/18/21 dicyclomine 10 mg PO QID PRN 04/30/21 mirtazapine 7.5 mg PO HS 04/30/21 tramadol 50 mg PO DAILY 05/02/21 Current Visit Medications: Current Medications Generic Name Dose Route Start Last Admin Trade Name Freq PRN Reason Stop Dose Admin Acetaminophen 1,000 mg 05/02/21 06:00 Acetaminophen 500 Mg Tab PO 05/02/21 16:00 PREOP CAM Celecoxib 400 mg 05/02/21 06:00 Celecoxib 200 Mg Cap PO 05/02/21 16:00 PREOP CAM Tranexamic Acid 1,000 mg/ 60 mls @ 360 mls/hr 05/02/21 06:00 Sodium Chloride IV 05/02/21 16:00 PREOP CAM Ringer's Solution 1,000 mls @ 80 mls/hr 05/02/21 06:00 IV 05/31/21 23:59 INFUSION CAM Cefazolin Sodium/Dextrose 2 gm in 50 mls @ 100 mls/hr 05/02/21 06:00 Ancef Duplex IVPB 05/31/21 23:59 PREOP CAM IV Miscellaneous Supplies 1 each 05/02/21 06:00 Iv Access IV 05/31/21 23:59 DIRECTED CAM Sodium Chloride 0 ml 05/02/21 06:00 Normal Saline Flush 10 Ml Syr IV 05/31/21 23:59 PRN PRN Sodium Chloride 0 ml 05/02/21 06:00 Normal Saline 10 Ml Vial IJ 05/31/21 23:59 DIRECTED PRN Sterile Water 0 ml 05/02/21 06:00 Water,Injection,Sterile 10 Ml Vial IJ 05/31/21 23:59 DIRECTED PRN PFSH Active Problems Active Problems: Problem Status Onset Code Urethral caruncle 05/13/16 N36.2 Hx of Clostridium difficile infection Z86.19 Stage 4 lung cancer C34.90 Degenerative joint disease of left hip M16.12 GERD (gastroesophageal reflux disease) K21.9 Tobacco abuse Z72.0 Lung cancer C34.90 History of lobectomy of lung ~09/11/18 Z90.2 Hx of adenomatous colonic polyps Z86.010 Change in bowel habits R19.4 Medical History Active Problem List Change in bowel habits (Acute) History of lobectomy of lung (Acute ~09/11/18) Hx of adenomatous colonic polyps (Acute) Lung cancer (Chronic) Tobacco abuse (Acute) GERD (gastroesophageal reflux disease) (Chronic) Degenerative joint disease of left hip (Chronic) Stage 4 lung cancer (Acute) Hx of Clostridium difficile infection (Acute) Urethral caruncle (Acute 05/13/16) Medical History Altered bowel function [place] [facility] [place]: [place]. stated she has memory of waking during surgery in past Bilateral carpal tunnel syndrome Bronchial spasms (06/12/15) pt. 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 reports roto rutor nose cleaned out Oral Rotator Cuff Repair Bicep/tendon Status post ovarian cystectomy Status post right oophorectomy Tonsillectomy and adenoidectomy Tobacco Smoking/Tobacco Use Status: Former Tobacco Use Alcohol Alcohol Intake: never Substance Use Substance use type: does not use Vital Signs and Lab Results Lab Results Blood Type / Crossmatch: Patient ABO/Rh O Positive 04/30/21 10:04/30/21 Antibody Screen NEGATIVE 04/30/21 10:04/30/21 Complete Blood Count: White Blood Count 10.59 10^3/uL (4.4-10.8) 04/30/21 10:25 04/30/21 Red Blood Count 4.08 10^6/uL (3.93-5.22) 04/30/21 10:04/30/21 Hemoglobin 12.8 g/dL (11.2-15.7) 04/30/21 10:04/30/21 Hematocrit 39.8 % (36.0-46.0) 04/30/21 10:25 04/30/21 Platelet Count 300 10^3/uL (130-400) 04/30/21 10:04/30/21 Complete Metabolic Panel: Sodium Level 140 mmol/L (136-145) 04/30/21 10:25 04/30/21 Potassium Level 4.4 mmol/L (3.5-5.1) 04/30/21 10:25 04/30/21 Chloride Level 102 mmol/L (98-107) 04/30/21 10:25 04/30/21 Carbon Dioxide Level 30.1 mmol/L (21.0-32.0) 04/30/21 10:25 04/30/21 Blood Urea Nitrogen 16 mg/dL (7-18) 04/30/21 10:25 04/30/21 Creatinine 0.8 mg/dL (0.55-1.02) 04/30/21 10:25 04/30/21 Estimated GFR/1.73 m2 >= 60.00 (mL/min/1.73m2) 04/30/21 10:25 04/30/21 Calcium Level 10.1 mg/dL (8.5-10.1) 04/30/21 10:25 04/30/21 Glucose Level 149 mg/dL (74-106) H 04/30/21 10:25 04/30/21 Liver Function Panel: No Data to Display Coagulation Panel: No Data to Display Cardiac Panel: No Data to Display Arterial Blood Gas: No Data to Display Venous Blood Gas: No Data to Display Pancreas Panel: No Data to Display Thyroid Panel: No Data to Display Infectious Disease: Coronavirus (COVID-19)(PCR) Negative (Negative) 04/30/21 11:35 04/30/21 Coronavirus 2019 Source Nasal/Nares 04/30/21 11:35 04/30/21 Blood Cultures: No Data to Display Toxicology Panel: No Data to Display Imaging and Studies Imaging and Studies Carotid Artery Summary:: 2019: minimal plaque. Pulmonary Function Summary: 2016: normal PFTs. Anesthesia Assessment and Plan Anesthesia History Personal History: Awareness Under Anesthesia and Other Family History: No Family History of Anesthesia Complications Exercise Tolerance Exercise Tolerance: Metabolic Equivalents>4 Pertinent Negatives Pertinent Negatives: No Symptoms of GERD (Controlled with meds), No Major Cardiovascular Symptoms or Complaints, No Major Pulmonary Symptoms or Complaints and No History of CVA/TIA (TIA 10 years ago no residuals) Cardiac & Pulmonary Exam Cardiac Exam: Normal S1/S2 Heart Sounds Pulmonary Exam: Clear Bilateral Breath Sounds Implantable Cardiac Device Does patient have a Pacemaker or an ICD?: No Airway Exam Known Difficult Airway: No Mallampati Class: 3 Mouth Opening: Normal (> 3cm) Thyromental Distance: Less than 3 cm Neck Range of Motion: Limited ROM Neck Circumference: Normal Teeth Condition: Normal Dentition Airway Comments: Multiple caps and crowns , top four front teeth capped ASA Classification ASA Score: ASA 3 Emergency Case?: No NPO Status NPO Status: NPO Clears >2 hours, Solids >8 hours Anesthesia Plan Resuscitation Status: Full Code Anesthesia Technique: Spinal Anesthesia Airway Planned: Natural Airway Monitors Used: Standard Monitors Preoperative Comments:: 71 yo female for hip replacement. Sig PMHx: awareness under anesthesia (during [employer] LEAD surg)/vocal cord injury, CVA/TIA, former smoker (quit 2017), chronic steriod (10 mg pred a day), COPD, lung CA (s/p lobectomy). Previous: Mac 4 changed to video for SIXTO placement, easy mask, grade 1.
[2021-05-02] VITALS (9 sets, daily range): BP systolic 106–149; BP diastolic 57–87; PULSE 85–101; RESP 19–21; TEMP 36.1–36.7; O2SAT 94–97; BMI 24.6
[2021-05-02] MEDS: Acetaminophen 500 MG TAB 1000 MG PO (06:44)
[2021-05-02] MEDS: Celecoxib 200 MG CAP 400 MG PO (06:44)
--- NOTE | 2021-05-02 06:45 | DI.RAD_ITS ---
Exam(s) XR HIP LT IN OR EXAM: XR HIP LT IN OR CLINICAL HISTORY: DJD LEFT HIP TECHNIQUE: 2D and realtime digital imaging was performed. COMPARISON: No exams were available for comparison FINDINGS: C-arm fluoroscopy was utilized by Dr. Ambriz during placement of left hip prosthesis. Hard copy sh ow acetabular and femoral components in good position. IMPRESSION: RADIATION DOSE DELIVERED: kam Antonio=3.17 mGy
[2021-05-02] MEDS: Lactated Ringers 1,000 ML 80 ML IV (07:05)
--- NOTE | 2021-05-02 07:25 | W.PM.DS.N ---
Documented by User: Radha Ayon 05/02/21 07:31 DS: Diagnosis Discharge Diagnosis (1) Degenerative joint disease of left hip: Status: Chronic Discharge Plan Disposition Patient Disposition: HOME Condition: Good Discharge Details Reason For Visit: Left hip DJD Attending Provider: César Ambriz Primary Care Provider: Mihai Saunders [place] Meds and New Rx's Prescriptions: New acetaminophen 500 mg tablet 1,000 mg PO Q8H PRN Qty: 90 RF: 0 aspirin 81 mg tablet,delayed release (DR/EC) 81 mg PO BID 30 Days Qty: 60 RF: 0 celecoxib [Celebrex] 200 mg capsule 200 mg PO BID Qty: 30 RF: 0 pantoprazole 40 mg tablet,delayed release (DR/EC) 40 mg PO DAILY 30 Days Qty: 30 RF: 0 oxycodone 5 mg tablet 5 mg PO Q6H PRN (Reason: severe post-operative pain) Qty: 12 RF: 0 docusate sodium [Colace] 100 mg capsule 100 mg PO BID Qty: 30 RF: 0 Continued prednisone 10 mg tablet 10 mg PO DAILY RF: 0 Centrum Silver Women 1 EACH tablet 1 ea PO DAILY RF: 0 glucosam-chond xh-eemxqn-fc ac 1 EACH capsule 1 ea PO DAILY RF: 0 triamcinolone acetonide 60 ML lotion 1 ml Topical BID PRNQty: 1 RF: 1 cholecalciferol (vitamin D3) 5,000 UNIT capsule 5,000 unit PO DAILY RF: 0 vitamin B complex 1 EACH capsule 1 ea PO DAILY RF: 0 areds 2 1 tab PO DAILY RF: 0 apple cider vinegar 600 mg capsule 600 mg PO DAILY RF: 0 calcium carbonate [Calcium 500] 500 mg calcium (1,250 mg) tablet 1,250 mg PO DAILY RF: 0 fluoride (sodium) [PreviDent 5000 Dry Mouth] 1.1 % gel 1 applic DT DAILY RF: 0 Probiotic 3 billion cell capsule 3,000 mmu cells PO DAILY RF: 0 ascorbic acid (vitamin C) 500 mg capsule 500 mg PO DAILY RF: 0 dicyclomine 10 mg capsule 10 mg PO QID PRNRF: 0 mirtazapine 7.5 mg tablet 7.5 mg PO HS RF: 0 tramadol 50 mg Tablet 50 mg PO DAILY RF: 0 famotidine [Pepcid] 40 mg Tablet 40 mg PO DAILY RF: 0 valacyclovir [Valtrex] 500 mg tablet 500 mg PO BID PRNRF: 0 folic acid 1 mg Tablet 1 mg PO DAILY RF: 0 Discharge Instructions Additional Instructions: Total Hip Discharge Instructions Activity: The most important activity is to walk. You should try to take short walks a few times a day. You have no restrictions on movement or positioning, but do not try to force what you do. You will find some stiffness and weakness with hip flexion (lifting your knee). Do not try to strengthen this too early, continue to practice walking and stairs and this will come. - Outpatient physical therapy can be helpful to help return you to a normal gait and improve your flexibility and strength. This can start around 2 weeks. For some patients, it?s not necessary. Usually this is determined at the time of discharge or at the first post-operative visit. - You should wear the LETICIA hose on both legs for 2 weeks. Dressing: Keep the surgical dressing in place for at least one week. After the first week it may be removed and replace with light gauze and tape or nothing. It may get wet after 3 days but avoid soaking the dressing. If it gets wet, just lightly pat dry. It is important to always keep some gauze between skin folds, especially when you are sitting. Spend some time with the wound exposed when you are lying flat as the incision does wrinkle onto itself. Medications: - You should take Tylenol and an anti-inflammatory Celebrex as your primary pain control medications. If the Celebrex is too expensive or not covered, please call the office for another alternative (Advil/Ibuprofen or Naproxen/Aleve). - You have been prescribed a stronger pain medication Oxycodone for breakthrough pain, take as needed as prescribed. - You have also been prescribed a stomach acid reduction agent Pantoprozole to help reduce stomach acid and reflux. - You will be taking Aspirin 81mg twice a day for DVT prevention unless instructed otherwise. - If you have constipation you should take Colace (which has been prescribed) or Miralax (which is available [id number]). It takes most people 3-4 days to have a bowel movement. Follow-up: 2 weeks If you have any acute concerns or questions, please do not hesitate to contact the office at [phone]. You may contact Dr. Ambriz with any questions after hours through the hospital at [phone] or on his cell phone at [phone]. Equipment/Supplies: Walker Activity:: Activity as Tolerated Remove Dressings/Wound Care:: Do Not Remove Shower/Bathe:: Cover Diet:: As Tolerated Discharge Orders Discharge Orders: Discharge Order (Routine); Ordered 05/02/21 Ordered By: César Ambriz DS: Data Vitals/I&O Vitals and I&O: Vital Signs Temperature 36.7 C 05/02/21 06:45 Pulse 86 05/02/21 06:45 Pulse Rhythm Regular 05/02/21 06:45 Respiratory Rate 20 05/02/21 06:45 Respiratory Depth Normal 05/02/21 06:45 Blood Pressure 141/81 H 05/02/21 06:45 Pulse Oximetry 96 05/02/21 06:45 Oxygen Delivery Method Room Air 05/02/21 06:45 Oxygen Flow Rate 0 05/02/21 06:45 Pain Level 0 05/02/21 06:45 Intake & Output 05/01/21 05/01/21 05/02/21 11:59 23:59 11:59 Weight 66.224 kg 66.5 kg [facility] Active Problem List Change in bowel habits (Acute) History of lobectomy of lung (Acute ~09/11/18) Hx of adenomatous colonic polyps (Acute) Lung cancer (Chronic) Tobacco abuse (Acute) GERD (gastroesophageal reflux disease) (Chronic) Degenerative joint disease of left hip (Chronic) Stage 4 lung cancer (Acute) Hx of Clostridium difficile infection (Acute) Urethral caruncle (Acute 05/13/16) Medical History Altered bowel function Anesthesia complication Per [facility] [place]: Pt. stated she has memory of waking during surgery in past Bilateral carpal tunnel syndrome Bronchial spasms (06/12/15) pt. 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 reports roto rutor nose cleaned out Oral Rotator Cuff Repair Bicep/tendon Status post ovarian cystectomy Status post right oophorectomy Tonsillectomy and adenoidectomy Family History Mother Diabetes Depression Neoplasm Stroke Father Depression Neoplasm Sister Asthma Grandfather Emphysema lung Grandfather No problems noted. Grandmother Stroke Grandmother No problems noted. Son No problems noted. Daughter No problems noted. Social History Smoking/Tobacco Use Status: Former Tobacco Use Quit Date: 09/23/17 Smoking risk assessment performed?: Yes Alcohol Intake: never Substance use type: does not use Current gender identity: female Do you feel safe at home: Yes Do you feel safe in your relationship?: Yes Documented by User: César Ambriz MD 05/02/21 11:33 Date of service: 05/02/21 Time of Service: 11:32 Discharge Plan Disposition Patient Disposition: HOME Condition: Good Discharge Details Reason For Visit: Left hip DJD Attending Provider: César Ambriz Primary Care Provider: Mihai Saunders [place] Meds and New Rx's Prescriptions: New acetaminophen 500 mg tablet 1,000 mg PO Q8H PRN Qty: 90 RF: 0 aspirin 81 mg tablet,delayed release (DR/EC) 81 mg PO BID 30 Days Qty: 60 RF: 0 celecoxib [Celebrex] 200 mg capsule 200 mg PO BID Qty: 30 RF: 0 pantoprazole 40 mg tablet,delayed release (DR/EC) 40 mg PO DAILY 30 Days Qty: 30 RF: 0 oxycodone 5 mg tablet 5 mg PO Q6H PRN (Reason: severe post-operative pain) Qty: 12 RF: 0 docusate sodium [Colace] 100 mg capsule 100 mg PO BID Qty: 30 RF: 0 Continued prednisone 10 mg tablet 10 mg PO DAILY RF: 0 Centrum Silver Women 1 EACH tablet 1 ea PO DAILY RF: 0 glucosam-chond qr-didujt-sg ac 1 EACH capsule 1 ea PO DAILY RF: 0 triamcinolone acetonide 60 ML lotion 1 ml Topical BID PRNQty: 1 RF: 1 cholecalciferol (vitamin D3) 5,000 UNIT capsule 5,000 unit PO DAILY RF: 0 vitamin B complex 1 EACH capsule 1 ea PO DAILY RF: 0 areds 2 1 tab PO DAILY RF: 0 apple cider vinegar 600 mg capsule 600 mg PO DAILY RF: 0 calcium carbonate [Calcium 500] 500 mg calcium (1,250 mg) tablet 1,250 mg PO DAILY RF: 0 fluoride (sodium) [PreviDent 5000 Dry Mouth] 1.1 % gel 1 applic DT DAILY RF: 0 Probiotic 3 billion cell capsule 3,000 mmu cells PO DAILY RF: 0 ascorbic acid (vitamin C) 500 mg capsule 500 mg PO DAILY RF: 0 dicyclomine 10 mg capsule 10 mg PO QID PRNRF: 0 mirtazapine 7.5 mg tablet 7.5 mg PO HS RF: 0 tramadol 50 mg Tablet 50 mg PO DAILY RF: 0 famotidine [Pepcid] 40 mg Tablet 40 mg PO DAILY RF: 0 valacyclovir [Valtrex] 500 mg tablet 500 mg PO BID PRNRF: 0 folic acid 1 mg Tablet 1 mg PO DAILY RF: 0 Discharge Instructions Additional Instructions: Total Hip Discharge Instructions Activity: The most important activity is to walk. You should try to take short walks a few times a day. You have no restrictions on movement or positioning, but do not try to force what you do. You will find some stiffness and weakness with hip flexion (lifting your knee). Do not try to strengthen this too early, continue to practice walking and stairs and this will come. - Outpatient physical therapy can be helpful to help return you to a normal gait and improve your flexibility and strength. This can start around 2 weeks. For some patients, it?s not necessary. Usually this is determined at the time of discharge or at the first post-operative visit. - You should wear the LETICIA hose on both legs for 2 weeks. Dressing: Keep the surgical dressing in place for at least one week. After the first week it may be removed and replace with light gauze and tape or nothing. It may get wet after 3 days but avoid soaking the dressing. If it gets wet, just lightly pat dry. It is important to always keep some gauze between skin folds, especially when you are sitting. Spend some time with the wound exposed when you are lying flat as the incision does wrinkle onto itself. Medications: - You should take Tylenol and an anti-inflammatory Celebrex as your primary pain control medications. If the Celebrex is too expensive or not covered, please call the office for another alternative (Advil/Ibuprofen or Naproxen/Aleve). - You have been prescribed a stronger pain medication Oxycodone for breakthrough pain, take as needed as prescribed. - You have also been prescribed a stomach acid reduction agent Pantoprozole to help reduce stomach acid and reflux. - You will be taking Aspirin 81mg twice a day for DVT prevention unless instructed otherwise. - If you have constipation you should take Colace (which has been prescribed) or Miralax (which is available [id number]). It takes most people 3-4 days to have a bowel movement. Follow-up: 2 weeks If you have any acute concerns or questions, please do not hesitate to contact the office at [phone]. You may contact Dr. Ambriz with any questions after hours through the hospital at [phone] or on his cell phone at [phone]. Equipment/Supplies: Walker Activity:: Activity as Tolerated Remove Dressings/Wound Care:: Do Not Remove Shower/Bathe:: Cover Diet:: As Tolerated Discharge Orders Discharge Orders: Discharge Order (Routine); Ordered 05/02/21 Ordered By: César Ambriz DS: Summary Time Spent with Patient providing and/or coordinating discharge services: Less than 30 minutes Status at Discharge Functional status at discharge: uses cane/walker Overall status at discharge: patient is progressing back to baseline Mental Status: mental status grossly normal Speech and Movement: speech and movement normal Mood: congruent mood Affect: normal affect Exam Psych Mental Status: mental status grossly normal Speech and Movement: speech and movement normal Mood: congruent mood Affect: normal affect [facility] Active Problem List Change in bowel habits (Acute) History of lobectomy of lung (Acute ~09/11/18) Hx of adenomatous colonic polyps (Acute) Lung cancer (Chronic) Tobacco abuse (Acute) GERD (gastroesophageal reflux disease) (Chronic) Degenerative joint disease of left hip (Chronic) Stage 4 lung cancer (Acute) Hx of Clostridium difficile infection (Acute) Urethral caruncle (Acute 05/13/16) Medical History Altered bowel function Anesthesia complication Per [facility] [place]: Pt. stated she has memory of waking during surgery in past Bilateral carpal tunnel syndrome Bronchial spasms (06/12/15) pt. 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 reports roto rutor nose cleaned out Oral Rotator Cuff Repair Bicep/tendon Status post ovarian cystectomy Status post right oophorectomy Tonsillectomy and adenoidectomy Family History Mother Diabetes Depression Neoplasm Stroke Father Depression Neoplasm Sister Asthma Grandfather Emphysema lung Grandfather No problems noted. Grandmother Stroke Grandmother No problems noted. Son No problems noted. Daughter No problems noted. Social History Smoking/Tobacco Use Status: Former Tobacco Use Quit Date: 09/23/17 Smoking risk assessment performed?: Yes Alcohol Intake: never Substance use type: does not use Current gender identity: female Do you feel safe at home: Yes Do you feel safe in your relationship?: Yes
[2021-05-02] MEDS: ceFAZolin 2 GM/50 ML BAG IVPB (07:45)
[2021-05-02] MEDS: Ketorolac 30 MG/ML VIAL (08:40)
[2021-05-02] MEDS: Bupivacaine 0.25% Pres-Free 30 ML VIAL (08:40)
--- NOTE | 2021-05-02 11:13 | PT.INIE ---
Date of service: 05/02/21 Time of Service: 11:13 PT Notes Visit Reasons: Left hip DJD Physical Therapy Day Surgery initial Evaluation Date: 05/02/2021 Referring Doctor: BELLA Ewing PT Orders: PT CONSULT: S/P ortho surgery Precautions: Fall. Standard. Activity as tolerated. Patient Profile/Admitting Diagnosis: Sarah is a 71-year-old female with lung carcinoma with chemotherapy currently placed on hold due to elective hip surgery for degenerative joint disease of the L hip. She is s/p L total hip arthroplasty on postoperative day 1. PMHX: Medical History (Updated 03/19/21 @ 15:23 by Heron Farrell RN) Altered bowel function Anesthesia complication Per [facility] [place] note: Pt. stated she has memory of waking during surgery in past Bilateral carpal tunnel syndrome Bronchial spasms (06/12/15) pt. 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, pt stated she had a breathing tube, had to have vocal therapy Urethral caruncle (05/13/16) Surgical History (Updated 11/16/20 @ 12:07 by Katie Funes RN) Appendectomy Arthroscopy, Shoulder 2 surgeries by 15 years 11/18/16-[facility] [place] RIGHT SHOULDER Bladder mesh Cervical fusion De Quervain's tenosynovitis, right s/p release Fott neuroma Hemorrhoidectomy History of colonoscopy (~11/10/20) History of lobectomy of lung (~09/11/18) Hematoma excision Ligation of fallopian tube Rotator Cuff Repair Bicep/tendon Status post ovarian cystectomy Status post right oophorectomy Tonsillectomy and adenoidectomy Social History/Home Situation: Lives alone but will be staying at son's home upon discharge from this hospital as she recovers. Independent with all ADLs prior to suregery. Equipment Owned/DME: None Subjective: Reports numbness in her bottom and pain in her L hip with movement of up to 7/10. Agreeable to getting evaluation done so she may go home with son. Objective: General Observation: Supine on stretcher. Mepilex Ag over surgical incision. TEDS to B legs. Mental Status: Alert and oriented as to person, place, time, and purpose. Able to pay attention, focus, and respond appropriately. Pain: 7/10 in L hip Vital Signs: WNL as monitored by Nurse Maryanne ROM: Right Lower Extremity: Hip flexion WFL. Hip abduction WFL. Knee flexion WFL. Ankle dorsiflexion WFL. Ankle plantarflexion WFL. Left Lower Extremity: Hip flexion WFL. Hip abduction WFL. Knee flexion WFL. Ankle dorsiflexion WFL. Ankle plantarflexion WFL. Strength: Right Lower Extremity: Hip flexors 5/5. Hip abductors 5/5. Knee flexors 5/5. Knee extensors 5/5. Ankle dorsiflexors 5/5. Ankle plantarflexors 5/5. Left Lower Extremity: Hip flexors 4/5. Hip abductors 4/5. Knee flexors 5/5. Knee extensors 3+/5. Ankle dorsiflexors 5/5. Ankle plantarflexors 5/5. Bed Mobility/Transfers: Supine to sit supervision Sit to supine supervision Sit to stand stand by assist Stand to sit stand by assist Bed to reclining chair supervision Gait: Instructed patient with level surface ambulation of 100 feet requiring stand by assist assist. Step through gait pattern. Step height in L decreased. Step length in L decreased. Denies dizziness, chest pain, and lightheadedness. Did report 7/10 pain in the L hip that subsided with rest. Stairs: Up and down 6 x 4-inch steps and 4 x 6-inch steps while holding onto unilateral rail with step-to gait pattern and stand by assist only. Balance: Static Sitting: Normal Dynamic Sitting: Normal Static Standing: Fair Dynamic Standing: Fair Special Tests: Mobility Limitations Standardized Measure [facility]-P[facility] 6 clicks Basic Mobility Inpatient Short Form: Raw Score: 23 CMS Score: 11% deficit Informed Consent/Education: Trained patient and instructed on HEP performance. Written HEP provied for maximized compliance and mastery. Assessment: Patient requires the use of the front-wheeled walker for all mobility ADl performance. Able to tolerate longer distance despite pain report. Patient presents with clinical signs and symptoms consistent with current/admitting diagnoses that have resulted to mobility limitations, gait instability, generalized weakness, and overall ADL decline as demonstrated by the following impairment level findings: 1. Decreased strength to L hip major muscle groups 2. Impaired standing balance 3. Impaired activity tolerance 4. Pain in L hip at 7/10 Impairments are contributing to the following functional limitations: 1. Decline in bed mobility skills 2. Decline in transfer skills 3. Difficulty with ambulation without assistive device 4. Increased completion time for mobility ADL performance 5. Increased risk for falls Patient is assessed as a 07396 moderate complexity based on the following: History: 71-year-old female with past medical history as indicated above Examination: Demonstrable impairment in strength, balance, and mobility level with underlying impairments and functional limitations as exhibited above as well as deficit score of 11% utilizing the [facility] Mobility Inpatient Short Form Presentation: Evolving Decision Makin moderate complexity Goals: N/A PT evaluation 1 treatment session only functional mobility training and HEP instruction. Plan of Care/Treatment Plan: N/A PT evaluation 1 treatment session only functional mobility training and HEP instruction. DISCHARGE RECOMMENDATIONS: [] Home with no services [] [] Home with services [specify] [X] Home with outpatient PT. Home when medically cleared by orthopedic surgeon. Will benefit from outpatient PT services in order to facilitate return to premorbid independent level without an assistive ambulatory device. [] SNF for continued rehabilitation [] [] [facility] [] [] SNF versus LTC based on ability to participate and progress [] TREATMENT CODE/TIME: 45174 x 20 minutes, 68984 x 17 minutes beginning at 11:13 AM. Thank you for the opportunity to participate in the care of this patient. Rebeca Vargas PT, DPT, CLT [facility] [place], [place]
--- NOTE | 2021-05-02 12:05 | W.ANESPOSTOP ---
Postoperative Evaluation Date, Time and Location Date Performed: 05/02/21 Time Performed: 12:05 Patient Location: Day Surgery Unit Vital Signs Most Recent Imported Vital Signs: Most Recent Vital Signs Temp Pulse Resp BP Pulse Ox 36.7 C 93 H 20 142/82 H 95 05/02/21 10:35 05/02/21 10:35 05/02/21 10:35 05/02/21 10:35 05/02/21 10:35 Pain Score Most Recent Pain Score: Most Recent Pain Score Pain Level 0 05/02/21 10:35 Assessment Mental Status: Awake (Alert & Oriented to Patient Baseline) Airway and Respiratory Function: Patent airway with normal (patient baseline) respiratory exam Cardiovascular Function: Hemodynamically Stable Hydration Status: Adequately Hydrated Nausea & Vomiting: No Nausea or Vomiting Pain: Pain is tolerable per patient Peripheral Nerve Block: Patient did not receive a nerve block
--- NOTE | 2021-05-02 13:35 | W.PM.OP ---
Date of service: 05/02/21 Time of Service: 09:36 Operative Note Operative Note DATE OF PROCEDURE: 05/02/21 PRE-OP DIAGNOSIS: Left Hip Osteoarthritis POST-OP DIAGNOSIS: same PROCEDURE: Left Anterior Total Hip Arthroplasty with Intraoperative Navigation SURGEON: César Ambriz AIRPORT REFUELING HANDLER: Radha Ayon ANESTHESIA TYPE: Spinal Refer to Anesthesia Record ESTIMATED BLOOD LOSS: 150 PATHOLOGY: none sent COMPLICATIONS: None Patient was transported to: PACU Patient's condition: stable Implants: 1. Depuy Holiday Acetabular Component, 52mm 2. Depuy Acetabular Liner, [id number] 3. Depuy Corail Standard Collared Femoral Stem, Size 13 4. Depuy Altrx Ceramic Femoral Head, Size 36+5mm Indications: I have seen Sarah in clinic for symptoms of hip arthritis, confirmed with radiographic findings. She has exhausted nonoperative methods and was having significant limitations in daily function and desired better function and less pain. I discussed the technical details of a hip replacement. I explained the risks of the procedure to include, but not limited to, bleeding, infection, pain, stiffness, fracture, damage to nerves and vessels, damage to muscles and tendons, loosening, instability, leg length inequality, need for repeat procedure, blood clot and cardiopulmonary demise. Despite these risks, Sarah elected to proceed. Findings: There was significant signs of arthritis throughout the hip with complete loss of cartilage from the femoral head and eburnation of this weight bearing portion. Procedure Description: Sarah was greeted in the preoperative holding area where the correct side was identified and marked. The consent was reviewed with the patient and signed. The history and physical was updated. All questions were answered. She was taken back to the operating room. A spinal anesthestic was then administered. The feet were wrapped with cast padding and Coban and then placed into the boot liners and then into the boots. Care was taken to protect the skin and make sure the heels were fully down and the boots were stable. The patient was then positioned onto the HANA table. Both legs were held in a neutral position. SCDs were applied. The patient was then slid down onto a peroneal post. Prophylactic antibiotics in the form of Cefazolin were administered. 1g of Tranxemic Acid was given intravenously within 30 minutes of incision. The left leg was then prepped with Chloraprep and draped in a standard fashion. A second prep with Chloraprep was performed prior to placement of a shower-curtain type drape with Iodine impregnated skin protection. A timeout to confirm correct identity, side and site, procedure, allergies, anesthesia, and medical concerns was performed. An obliquely oriented incision was made starting lateral to the ASIS and running distal over the Tensor Fascia Nery (TFL) muscle belly toward the fibular head, approximately 10cm. The skin and soft tissue was dissected sharply, through Kevin?s fascia, and to the fascia of the TFL. With the fascia and superior border of the IT band identified, the fascia was incised with a new knife just above any perforators from the IT band. The TFL muscle belly was bluntly dissected away from the fascia and moved laterally. The fat between TFL and rectus was identified to ensure the dissection was not within the TFL. Blunt dissection created space between abductors and the capsule and retractor was placed over the lateral femoral neck. The fibers of the rectus femoris tendon were identified and these were freed from the anterior capsule. A second cobra retractor was placed around the medial femoral neck. The TFL was further retracted laterally to show the deep fascia. Careful dissection through this layer identified three main crossing vessels of the lateral femoral circumflex. These were cauterized in multiple locations and then cut without any noticeable bleeding. The TFL was further released bluntly from the deep fascia to expose anterior hip capsule and fat The Alfredo orthopaedic retractor was then placed beneath the TFL and against sartorius and medial soft tissues to protect and retract the soft tissues. A T-capsulotomy was then performed starting at the superior lateral acetabulum and moving distally to the intertrochanteric ridge. These capsular flaps were tagged with a No. 1 Ethibond and elevated from within. The capsular flaps were released to the shoulder of the lateral neck and to the lesser trochanter to give excellent visualization of the proximal femur. A neck osteotomy was performed using an oscillating saw based on preoperative templates. This cut started in the shoulder and of the lateral neck and exited medially. The saw was at all times directed medially to avoid injury to the greater trochanter. Gross traction was applied to the leg and the osteotomy opened. The femoral head was removed with a corkscrew, making sure to protect the TFL on its exit. Traction was released after head removal. This was measured on the back table to determine the starting reamer size. Portions of the rectus obscuring visualization were minimally elevated off the superior acetabulum. An anterior retractor was placed over the anterior wall between capsule and labrum and attached to the Gripper retraction system. The femur was rotated to 90 degrees and medial capsule was fully released until the lesser trochanter was palpable and visible; the femur was returned to 30 degrees. A posterior retractor was placed similarly between capsule and labrum. This provided excellent visualization. The contents of the cotyloid fossa were removed with electrocautery and the labrum was removed with a knife. There was significant chondromalacia of the superior acetabulum. Acetabular reaming began with a 48mm reamer. This first reaming was directed anterior to posterior and medial to get down to the true floor. This was inspected and reamed until the true floor was reached. The anterior retractor was then released and entry and exit was provided by traction on the capsular flaps. I then reamed sequentially up to a 52mm reamer where good fit was obtained. The larger reamers were oriented based on anatomical reference of the anterior and lateral ingram to ensure proper abduction and anteversion. Positioning and size was confirmed with the fluoroscopy. A 52mm Depuy Holiday acetabular component was selected. The acetabulum was reamed around the periphery with the selected acetabular size to prevent a rim fit. The deep tissues were irrigated. The acetabular component was then impacted in a position of about 40-45 degrees of abduction and 15-20 degrees of anteversion, using the patient?s anatomy as the ultimate landmark. Fluoroscopy was used to confirm this. There was excellent engineering laboratory technician of the acetabular component and the inserting handle was removed. The acetabular liner, Depuy [id number] polyethylene liner, was inserted and lined up with the tines of the acetabular component. There was no soft tissue interposition. The liner was then impacted into position and confirmed to be well-seated. A portion of the genny-articular cocktail was then injected around the acetabulum into the capsule and periosteum. This cocktail consisted of 50cc of 0.25% Bupivicaine and 20cc of Exparel and 30mg of Ketorolac. The leg was rotated to 120 degrees. Any remaining medial capsule was released until the lesser trochanter was easily palpable. A retractor was placed medially. The lateral capsule was further released into the shoulder to allow access to the greater trochanter. A Soto retractor was placed over the greater trochanter which allowed the trochanter to flip in front of the capsule for excellent exposure. The leg was brought down into maximal extension and 20 degrees of adduction while ensuring there was no impingement on the acetabulum. Any remnant capsule within the trochanter was released. Piriformis and obturator externis were identified and protected. There was excellent access to the proximal femur. The lateral neck remnant was removed with a rongeur. A blunt canal probe was used to identify the canal and trajectory for later broaching. A box osteotome initiated the broach course. A small curved rasp and a curved curette were used to work laterally. Broaching then began with a size 8 Corail broach. This was inserted manually around the trochanter and into the canal before mallet blows. The broach was seated to a few millimeters below the cut level based on the neck cut and the preoperative template. Sequential broaching was continued with the Silent Power pneumatic broaching device until a tight fit was obtained with good rotational control of the femur. A trial standard neck was inserted along with a +5 trial head. The leg was brought out of extension and adduction and then reduced with traction and internal rotation. The leg was stable anteriorly in a position of 30 degrees of extension and 90 degrees of external rotation. Fluoroscopy was used to ensure there was no fracture and the stem was seated well. Leg lengths were checked with an AP pelvis and pelvic reference points. Studio Kate navigation system was used to confirm appropriate positioning and leg length and offset. There were no changes necessary with appropriate recreation of leg length and offset. Once content with the desired offset and leg lengths, the leg was brought back into extension, external rotation and adduction. The periosteum and surrounding tissue was injected with remaining portion of the genny-articular cocktail. The proximal femur was irrigated as well as the deep tissues. The Depuy Corail standard collared stem, size 13, was then manually inserted into the proximal femur making sure to control rotation. It was then malleted into position with light blows, giving breaks to allow bone expansion and decrease risk of fracture. The selected Depuy Altrx Ceramic Head, size 36+5mm, was then placed onto the clean and dry trunnion and secured with impaction onto the tapered fit. The leg was brought back out of extension and adduction and reduced with traction and internal rotation. Stability was confirmed with no shuck at 90 degrees of external rotation and 30 degrees of extension. No impingement through range of motion arc. Final x-ray images were obtained with fluoroscopy to confirm adequate positioning and no intraoperative fracture. The deep tissues were thoroughly irrigated with Irrisept chlorhexadine solution. The capsule was then reapproximated with the previously placed Ethibond sutures. The TFL fascia was finally closed with a No. 2 Stratafix, barbed suture. Deep tissues were then reapproximated with 0 Vicryl and a running 2-0 Vicryl. The skin was closed with a running 4-0 Monocryl in a subcuticular fashion. This was reinforced with skin glue. A Mepilex silver dressing was applied. At the end of the case, all counts were correct. Sarah was transferred to the hospital bed without difficulty and suffering no apparent complication. Sarah has a good prognosis. Physical therapy will start today and without restrictions, weight-bearing as tolerated. Aspirin 81mg BID will be used for DVT prophylaxis. She will resume her home dose of Prednisone.
== END 2021-05-02 14:06 | disposition home or self-care (01) ==
PROVIDERS: PCP Neuromusculoskeletal Medicine & OMM; Visit Provider Student in an Organized Health Care Education/Training Program
PROC: (CPT 27130; principal; 2021-05-02 07:30)
DX: M16.12 Unilateral primary osteoarthritis, left hip (principal); C34.90 Malignant neoplasm of unspecified part of unspecified bronchus or lung; Z90.2 Acquired absence of lung [part of]; K21.9 Gastro-esophageal reflux disease without esophagitis; F17.210 Nicotine dependence, cigarettes, uncomplicated
CPT/HCPCS: 20985; 27130; C1776; 97162; 97530; 73501; J0690; J1720; J1885; J2405

== ENCOUNTER 2021-05-17 11:35 | Outpatient (CLI) | payer MEDICARE, BC, SELFPAY ==
--- NOTE | 2021-05-17 10:45 | DI.RAD_ITS ---
Exam(s) XR HIP LT COMPLETE AP PELVIS EXAM: XR HIP LT COMPLETE AP PELVIS CLINICAL HISTORY: 1ST POST OP L DOTTY. TECHNIQUE: 2D digital imaging was performed. COMPARISON: CR XR PELVIS AP from 03/20/2020 XR HIP LT IN OR from 05/02/2021 XR HIP LT IN OR from 05/02/2021 FINDINGS: AP and cross-table lateral views of the left hip reveals satisfactory position alignment of the compo nents of the recently placed left hip prosthesis (05/02/2021). There are no fractures or loosening e vident. IMPRESSION: DATA REPOSITORY: RADIATION DOSE DELIVERED:
== END 2021-05-17 11:36 | disposition home or self-care (01) ==
LOC: DIORS 11:37
PROVIDERS: PCP Neuromusculoskeletal Medicine & OMM; Referring Provider Neuromusculoskeletal Medicine & OMM; Visit Provider Student in an Organized Health Care Education/Training Program
DX: Z96.642 Presence of left artificial hip joint (principal); Z47.1 Aftercare following joint replacement surgery
CPT/HCPCS: 73502

== ENCOUNTER 2021-05-29 09:13 | Emergency (ER) | payer MEDICARE, BC, SELFPAY ==
[2021-05-29] VITALS (32 sets, daily range): BP systolic 129–175; BP diastolic 72–92; PULSE 83–94; RESP 12–29; TEMP 36.8; O2SAT 92–97
--- NOTE | 2021-05-29 09:17 | RT.EKG_ITS ---
APPROVED REPORT Exam: Resting ECG Reason for Exam: shortness of breath Patient Location: E HR:90 bpm ECG Measurements Heart Rate 90 AXIS AK 125 P 55 QRSd 78 QRS 36 QT 352 T 36 QTc 431 Conclusion Sinus rhythm...normal P axis, V-rate 60- 99 Multiform ventricular premature complexes...short R-R, variable morphology Aberrant conduction of SV complex(es)...aberrant shape, AK 80-220 significant motion artifact, no obvious stemi
--- NOTE | 2021-05-29 09:42 | ED.GENADUL_ITS ---
Discharge Plan Disposition Patient Disposition: HOME Condition: Stable Discharge Details Clinical Impression: Shortness of breath Primary Care Provider: Mihai Saunders ED Provider: Wale Hardin Home Meds and New Rx's Prescriptions: New levofloxacin 750 mg tablet 750 mg PO DAILY Qty: 7 RF: 0 Continued prednisone 10 mg tablet 9 mg PO DAILY RF: 0 Centrum Silver Women 1 EACH tablet 1 ea PO DAILY RF: 0 glucosam-chond ta-yyxylr-ds ac 1 EACH capsule 1 ea PO DAILY RF: 0 triamcinolone acetonide 60 ML lotion 1 ml Topical BID PRNQty: 1 RF: 1 cholecalciferol (vitamin D3) 5,000 UNIT capsule 5,000 unit PO DAILY RF: 0 vitamin B complex 1 EACH capsule 1 ea PO DAILY RF: 0 areds 2 1 tab PO DAILY RF: 0 apple cider vinegar 600 mg capsule 600 mg PO DAILY RF: 0 calcium carbonate [Calcium 500] 500 mg calcium (1,250 mg) tablet 1,250 mg PO DAILY RF: 0 fluoride (sodium) [PreviDent 5000 Dry Mouth] 1.1 % gel 1 applic DT DAILY RF: 0 Probiotic 3 billion cell capsule 3,000 mmu cells PO DAILY RF: 0 ascorbic acid (vitamin C) 500 mg capsule 500 mg PO DAILY RF: 0 dicyclomine 10 mg capsule 10 mg PO QID PRNRF: 0 mirtazapine 7.5 mg tablet 7.5 mg PO HS RF: 0 aspirin 81 mg tablet,delayed release (DR/EC) 81 mg PO BID 30 Days Qty: 60 RF: 0 pantoprazole 40 mg tablet,delayed release (DR/EC) 40 mg PO DAILY 30 Days Qty: 30 RF: 0 famotidine [Pepcid] 40 mg Tablet 40 mg PO DAILY RF: 0 valacyclovir [Valtrex] 500 mg tablet 500 mg PO BID PRNRF: 0 folic acid 1 mg Tablet 1 mg PO DAILY RF: 0 Discharge Instructions Additional Instructions: your blood work did not show any concerning changes from your baseline your cat scan did not show any pulmonary embolism but you do have worsening appearing right lower lung which is likely related to the cancer. We are treating you for a possible pneumonia follow up as scheduled with your oncologist if you feel more ill, have worsening shortness of breath or fevers return to the emergency department Medical Decision Making 71 yo female with hx of copd though she states she hasn't needed inhalers in years, lung cancer last chemotherapy was in march and had hip replacement several weeks ago comes in with shortness of breath. She states she has been feeling more short of breath for months but feel it has worsened over the past ten days. Denies any fevers, chest pain, has had a dry cough, no n/v or abdominal pain. She is in no distress on exam speaking clearly. She has nowheezing or other abnormal lung sounds on exam. She has stable vitals and has an oxygen saturation of 95%. Given her cancer history and recent surgery concern for Pe, will obtain CTA to evaluate for this as well as pulmonary edema and infiltrates. Will evaluate for anemia as well and though has no chest pain or pressure will send troponin to evaluate for possible acs. pt's vitals stable. She has no PE though her right lower lung has worsening interstitial prominence which could be from pneumonia, pulmonary edema or worsening metastatic disease. I doubt pulmonary edema given she has no edema of her legs or involvement on her left lung. She has follow up with her oncologist friday and though she has no fever or leukocytosis will place on levofloxacin to cover for pneumonia. Return precautions given Differential Diagnosis Differential Diagnosis: covid, pneumonia, pe Medical Records Medical records reviewed: Yes I reviewed the patient's medical records. Imaging Data Radiologic Study: Attestation: I personally reviewed and interpreted this imaging study as follows: Imaging: CT Scan Radiologist's impression: MPRESSION: 1. No evidence of pulmonary embolism, thoracic aortic dissection or aneurysm. 2. Worsened interstitial prominence in consolidation involving the right lung. Differential considerations include worsening pneumonia, pulmonary edema or metastatic disease. 3. Results of this exam have been verbally communicated with provider. Lab Data Lab results reviewed: Yes I reviewed the patient's lab results. ECG Data Attestation: I personally reviewed and interpreted this ECG (s) as follows: Prior ECG tracings: not available for review Interpretation: sinus rhythm, rate of 90, no acute st t wave ischemic findings though limited due to motion artifact HPI General Mode of arrival: ambulatory . Date/Time Provider Initiated Documentation: 05/29/21 09:14 . Limitations to Documentation: no limitations . Information obtained by: patient . History of Present Illness 71 year old F p resents to the emergency department with the chief complaint of shortness of breath, described as moderate, Patient started experiencing this day(s) (10) and it has been constant. No relieving factors improve symptom(s), No exacerbating factors reported . Patient notes cough; denies chest pain and fever/chills. Patient did receive the following treatments prior to arrival, none Related Data Home Medications Medication Instructions Recorded Confirmed Centrum Silver Women 1 ea PO DAILY 03/02/15 05/29/21 glucosam-chond ox-ttssol-pb ac 1 ea PO DAILY 03/02/15 05/29/21 triamcinolone acetonide 1 ml TOPICAL BID PRN #1 bottle 12/18/15 05/29/21 Areds 2 1 tab PO DAILY 10/29/16 05/17/21 cholecalciferol (vitamin D3) 5,000 unit PO DAILY 10/29/16 05/29/21 vitamin B complex 1 ea PO DAILY 10/29/16 05/29/21 apple cider vinegar 600 mg capsule 600 mg PO DAILY 07/29/19 05/29/21 ascorbic acid (vitamin C) 500 mg 500 mg PO DAILY 07/29/19 05/29/21 capsule calcium carbonate 500 mg calcium 1,250 mg PO DAILY tab 07/29/19 05/29/21 (1,250 mg) tablet fluoride (sodium) 1.1 % dental gel 1 applic DT DAILY 07/29/19 05/29/21 lactobacillus combination no.4 3 3,000 mmu cells PO DAILY 07/29/19 05/29/21 billion cell capsule famotidine [Pepcid] 40 mg PO DAILY 11/08/20 05/29/21 folic acid 1 mg PO DAILY 11/08/20 05/29/21 valacyclovir [Valtrex] 500 mg PO BID PRN 11/08/20 05/29/21 prednisone 10 mg tablet 9 mg PO DAILY 04/18/21 05/29/21 dicyclomine 10 mg PO QID PRN 04/30/21 05/29/21 mirtazapine 7.5 mg PO HS 04/30/21 05/29/21 aspirin 81 mg PO BID 30 Days #60 tab 05/02/21 05/29/21 pantoprazole 40 mg PO DAILY 30 Days #30 tab 05/02/21 05/29/21 levofloxacin 750 mg PO DAILY #7 tab 05/29/21 Previous Rx's Medication Instructions Recorded aspirin 81 mg PO BID 30 Days #60 tab 05/02/21 pantoprazole 40 mg PO DAILY 30 Days #30 tab 05/02/21 levofloxacin 750 mg PO DAILY #7 tab 05/29/21 Allergies Allergy/AdvReac Type Severity Reaction Status Date / Time amoxicillin trihydrate AdvReac Intermediate GI Upset Verified 05/29/21 09:49 [From Augmentin] potassium clavulanate AdvReac Intermediate GI Upset Verified 05/29/21 09:49 [From Augmentin] General Stated Complaint: SOB GUS: 2 Review of Systems All systems reviewed & are unremarkable except as noted in HPI and below Constitutional Constitutional: Denies chills, Denies fever(s) and Denies weakness Cardiovascular Cardiovascular: Denies chest pain Respiratory Respiratory: Denies cough Gastrointestinal Gastrointestinal: Denies abdominal pain, Denies nausea and Denies vomiting Musculoskeletal Musculoskeletal: Denies joint swelling Neurologic Neurologic: Denies weakness PFSH All Active Problems (Updated 05/29/21 @ 11:46 by Wale Hardin MD) Shortness of breath (Acute) History of total left hip arthroplasty (Acute 05/02/21) DOS 05/02/21 Change in bowel habits (Acute) History of lobectomy of lung (Acute ~09/11/18) Hx of adenomatous colonic polyps (Acute) Lung cancer (Chronic) Tobacco abuse (Acute) GERD (gastroesophageal reflux disease) (Chronic) Stage 4 lung cancer (Acute) Hx of Clostridium difficile infection (Acute) Urethral caruncle (Acute 05/13/16) Medical History (Updated 05/29/21 @ 11:46 by Wale Hardin MD) Altered bowel function Anesthesia complication Per [facility] [place] [facility] note: Pt. stated she has memory of waking during surgery in past Bilateral carpal tunnel syndrome Bronchial spasms (06/12/15) pt. 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 reports roto rutor nose cleaned out Oral Rotator Cuff Repair Bicep/tendon Status post ovarian cystectomy Status post right oophorectomy Tonsillectomy and adenoidectomy Family History Mother Diabetes Depression Neoplasm Stroke Father Depression Neoplasm Sister Asthma Grandfather Emphysema lung Grandfather No problems noted. Grandmother Stroke Grandmother No problems noted. Son No problems noted. Daughter No problems noted. Social History Smoking/Tobacco Use Status: Former Tobacco Use Quit Date: 09/23/17 Smoking risk assessment performed?: Yes Alcohol Intake: never Substance use type: does not use Current gender identity: female Do you feel safe at home: Yes Do you feel safe in your relationship?: Yes Exam Const General: no acute distress Orientation: alert HENMT Head: normal to inspection Ears: external ears normal General nose exam: external nose normal Mouth: moist mucous membranes Eyes General: appearance normal, both eyes and all related structures Neck Neck: normal visual inspection Resp Effort & Inspection: normal respiratory effort and able to speak in complete sentences Cardio Rate: regular rate Skin General skin exam: no rashes or lesions noted Neuro General: patient alert and patient oriented x3 Extrem General: normal to inspection Psych Mental Status: mental status grossly normal Course Vital Signs Vital signs: Vital Signs Temperature 36.8 C 05/29/21 09:24 Pulse 89 05/29/21 09:24 Respiratory Rate 22 05/29/21 09:24 Blood Pressure 164/79 H 05/29/21 09:24 Pulse Oximetry 96 05/29/21 09:24 Temperature 36.8 C 05/29/21 09:24 Temperature Source Oral 05/29/21 09:24 Pulse 89 05/29/21 09:24 Respiratory Rate 22 05/29/21 09:24 Respiratory Effort 05/29/21 09:36 Blood Pressure 164/79 H 05/29/21 09:24 Blood Pressure Position Supine 05/29/21 09:24 Pulse Oximetry 96 05/29/21 09:24 Oxygen Delivery Method Room Air 05/29/21 09:24 Oxygen Flow Rate 0 05/29/21 09:24 Pain Level 0 05/29/21 09:24
[2021-05-29 10:02] LABS: Source Nasal/Nares
[2021-05-29 10:03] LABS: Abs Immature Grans 0.05 10^3/uL (0.0-0.06); Absolute Basophil Count 0.05 10^3/uL (0.0-0.2); Absolute Eosinophil Count 0.13 10^3/uL (0.0-0.7); Absolute Lymphocyte Count 0.51 10^3/uL (1.2-3.4); Absolute Monocyte Count 0.26 10^3/uL (0.1-0.8); Absolute Neutrophil Count 6.63 10^3/uL (1.2-6.7); BE (Venous) 7 mmol/L (-2-3); Basophils % 0.7; Eosinophils % 1.7; HCO3 (Venous) 31 mmol/L (23-28); HGB 11.3 g/dL (11.2-15.7); Immature Grans % 0.7; Lymphocytes % 6.7; MCHC 31.4 % (32.0-36.0); MCV 98.6 fL (80-95); MPV 8.7 fL (8.0-11.0); Monocytes % 3.4; Neutrophils % 86.8; Nucleated RBC 0 %; O2 Sat (Venous) 84 %; Platelet Count 303 10^3/uL (130-400); RBC 3.65 10^6/uL (3.93-5.22); RDW 13.6 % (11.7-14.6); RDW-SD 49.3 fL; TCO2 (Venous) 28 mmol/L (24-29); WBC 7.63 10^3/uL (4.4-10.8); pCO2 (Venous) 48 mmHg (41-51); pH (Venous) 7.42 (7.31-7.41); pO2 (Venous) 48 mmHg
[2021-05-29] MEDS: Omnipaque 350 MG/ML 100 ML BTL IJ (10:24)
[2021-05-29 10:27] LABS: ALT 21 U/L (14-59); AST 14 U/L (15-37); Albumin 3.3 g/dL (3.4-5.0); Alkaline Phosphatase 142 U/L (46-116); Anion Gap 5.7 mmol/L (3-11); BUN 14 mg/dL (7-18); Bilirubin, Total 0.4 mg/dL (0.2-1.0); CO2 30.3 mmol/L (21.0-32.0); CREATININE 0.9 mg/dL (0.55-1.02); Calcium 9.8 mg/dL (8.5-10.1); Chloride 104 mmol/L (98-107); Glucose 129 mg/dL (74-106); Magnesium 2.2 mg/dL (1.8-2.4); NT-proBNP 85 pg/mL (<300); Potassium 3.9 mmol/L (3.5-5.1); Sodium 140 mmol/L (136-145); Total Protein 6.1 g/dL (6.4-8.2); Troponin I < 50 ng/L (<or=60)
--- NOTE | 2021-05-29 10:50 | DI.CT_ITS ---
Exam(s) CT CHEST PE CTA EXAM: CT CHEST PE CTA CLINICAL HISTORY: shortness of breath, recent surgery, cancer. TECHNIQUE: Imaging Protocol: Axial CT angiography was performed with multi-slice acquisition and mu lti-planar and/or 3D reconstructions. CONTRAST MATERIAL: Intravenous: Omnipaque 350 Contrast volume:100 mL COMPARISON: CT CT CHEST/ABD/PEL W from 10/16/[address] CHEST/ABD/PEL W from 10/16/2020 FINDINGS: Tracheobronchial tree: Patent where visualized. Pulmonary parenchyma: Patient is status post lobectomy. There has been slight worsening infiltrates in the right lung compared to 10/16/2020. Mild centrilobular emphysema. No architectural distortion. Pulmonary Arteries: No evidence of filling defect to suggest pulmonary emboli. Mediastinum and Yanna: No dominant adenopathy or fluid collection. The esophagus is unremarkable. Visualized thyroid gland: Unremarkable. Pleura: There may be a small right pleural effusion. No left pleural effusion or pneumothorax. Heart: The heart is not dilated. No coronary artery calcifications are seen. No pericardial effusion. Aorta: Thoracic aorta non-dilated. No evidence of dissection. Atherosclerosis. Upper abdomen: Unremarkable. Tubes, Catheters, and Lines: The patient has a right-sided Rzjyie-S-Bete catheter. Soft tissues: Unremarkable. Bones: Within normal limits for the patient's age. IMPRESSION: 1. No evidence of pulmonary embolism, thoracic aortic dissection or aneurysm. 2. Worsened interstitial prominence in consolidation involving the right lung. Differential consider ations include worsening pneumonia, pulmonary edema or metastatic disease. 3. Results of this exam have been verbally communicated with provider. RADIATION DOSE DELIVERED: 280.37mGy.cm Total DLP DATA REPOSITORY: All CT scans at this facility are submitted to the National Radiology Data Registry (NRDR) Dose Index Registry (DIR) with the [employer] ([employer]). RADIATION OPTIMIZATION: All CT scans at this facility use at least one of these dose optimization te chniques: automated exposure control; mA and/or kV adjustment per patient size (includes targeted exa ms where dose is matched to clinical indication); or iterative reconstruction.
[2021-05-29 10:56] LABS: COVID-19 PCR Negative (Negative)
[2021-05-29] MEDS: Heparin 500 UNITS/5 ML SYRINGE (12:00)
== END 2021-05-29 12:14 | disposition home or self-care (01) ==
PROVIDERS: Emergency Provider Emergency Medicine; PCP Neuromusculoskeletal Medicine & OMM
DX: R06.02 Shortness of breath (principal); J44.9 Chronic obstructive pulmonary disease, unspecified; R05.1 Acute cough; Z98.890 Other specified postprocedural states
CPT/HCPCS: 71275; 80053; 82805; 87635; 93005; 99285; 83735; 83880; 84484; 85025; 93010; 99284; J3490

== ENCOUNTER 2021-06-04 03:34 | Outpatient (RCR) | payer MEDICARE, BC, SELFPAY ==
[2021-06-04] MEDS: Normal Saline Flush 10 ML SYR IVP (13:01)
[2021-06-04 13:14] LABS: Abs Immature Grans 0.06 10^3/uL (0.0-0.06); Absolute Basophil Count 0.05 10^3/uL (0.0-0.2); Absolute Eosinophil Count 0.04 10^3/uL (0.0-0.7); Absolute Monocyte Count 0.34 10^3/uL (0.1-0.8); Absolute Neutrophil Count 7.49 10^3/uL (1.2-6.7); Basophils % 0.6; Eosinophils % 0.5; HCT 39.1 % (36.0-46.0); HGB 12.1 g/dL (11.2-15.7); Immature Grans % 0.7; Lymphocytes % 9.1; MCH 30.3 pg (27.0-33.0); MCHC 30.9 % (32.0-36.0); MPV 8.6 fL (8.0-11.0); Monocytes % 3.9; Neutrophils % 85.2; Nucleated RBC 0 %; Platelet Count 310 10^3/uL (130-400); RBC 3.99 10^6/uL (3.93-5.22); RDW 13.4 % (11.7-14.6); RDW-SD 48.6 fL; WBC 8.78 10^3/uL (4.4-10.8)
[2021-06-04 13:37] LABS: ALT 20 U/L (14-59); AST 16 U/L (15-37); Albumin 3.1 g/dL (3.4-5.0); Alkaline Phosphatase 150 U/L (46-116); Anion Gap 7.5 mmol/L (3-11); BUN 15 mg/dL (7-18); Bilirubin, Total 0.3 mg/dL (0.2-1.0); CO2 29.5 mmol/L (21.0-32.0); Calcium 9.5 mg/dL (8.5-10.1); Chloride 101 mmol/L (98-107); FREE T4 0.84 ng/dL (0.76-1.46); Glucose 183 mg/dL (74-106); Magnesium 2.1 mg/dL (1.8-2.4); Potassium 4.3 mmol/L (3.5-5.1); Sodium 138 mmol/L (136-145); TSH 1.01 uIU/mL (0.36-3.74); Total Protein 6.4 g/dL (6.4-8.2)
== END 2021-06-08 23:59 | disposition home or self-care (01) ==
LOC: INF 03:34
PROVIDERS: PCP Neuromusculoskeletal Medicine & OMM; Visit Provider Internal Medicine Medical Oncology
DX: C34.91 Malignant neoplasm of unspecified part of right bronchus or lung (principal); Z79.899 Other long term (current) drug therapy; Z45.2 Encounter for adjustment and management of vascular access device
CPT/HCPCS: 36591; 80053; 83735; 84439; 84443; 85025

== ENCOUNTER → 2021-06-15 10:59 | Outpatient (BNVA) | payer MEDICARE, BC, SELFPAY | PROVIDERS: PCP Neuromusculoskeletal Medicine & OMM; Referring Provider Neuromusculoskeletal Medicine & OMM | DX: Z47.1 Aftercare following joint replacement surgery (principal); Z96.642 Presence of left artificial hip joint ==

== ENCOUNTER 2021-07-02 02:52 | Outpatient (RCR) | payer MEDICARE, BC, SELFPAY ==
[2021-07-02] MEDS: Normal Saline Flush 10 ML SYR IVP (09:11)
[2021-07-02 09:28] LABS: Abs Immature Grans 0.14 10^3/uL (0.0-0.06); Absolute Eosinophil Count 0.22 10^3/uL (0.0-0.7); Absolute Lymphocyte Count 0.98 10^3/uL (1.2-3.4); Absolute Monocyte Count 0.77 10^3/uL (0.1-0.8); Absolute Neutrophil Count 8.58 10^3/uL (1.2-6.7); Basophils % 0.9; HCT 40.4 % (36.0-46.0); HGB 12.8 g/dL (11.2-15.7); Immature Grans % 1.3; Lymphocytes % 9.1; MCH 29.5 pg (27.0-33.0); MCHC 31.7 % (32.0-36.0); MCV 93.1 fL (80-95); MPV 8.8 fL (8.0-11.0); Monocytes % 7.1; Neutrophils % 79.6; Nucleated RBC 0 %; Platelet Count 361 10^3/uL (130-400); RBC 4.34 10^6/uL (3.93-5.22); RDW 13.6 % (11.7-14.6); RDW-SD 46.8 fL; WBC 10.79 10^3/uL (4.4-10.8)
[2021-07-02 09:57] LABS: ALT 37 U/L (14-59); AST 25 U/L (15-37); Albumin 3.2 g/dL (3.4-5.0); Alkaline Phosphatase 136 U/L (46-116); Anion Gap 11.1 mmol/L (3-11); BUN 24 mg/dL (7-18); Bilirubin, Total 0.3 mg/dL (0.2-1.0); CO2 30.9 mmol/L (21.0-32.0); CREATININE 1.1 mg/dL (0.55-1.02); Calcium 9.8 mg/dL (8.5-10.1); Chloride 98 mmol/L (98-107); Estimated GFR 48.82 (mL/min/1.73m2); FREE T4 1.12 ng/dL (0.76-1.46); Glucose 158 mg/dL (74-106); Potassium 3.3 mmol/L (3.5-5.1); Sodium 140 mmol/L (136-145); TSH 1.71 uIU/mL (0.36-3.74); Total Protein 6.8 g/dL (6.4-8.2)
== END 2021-07-09 23:59 | disposition home or self-care (01) ==
LOC: INF 02:52
PROVIDERS: PCP Neuromusculoskeletal Medicine & OMM; Visit Provider Internal Medicine Medical Oncology
DX: C34.91 Malignant neoplasm of unspecified part of right bronchus or lung (principal); Z79.899 Other long term (current) drug therapy; Z45.2 Encounter for adjustment and management of vascular access device
CPT/HCPCS: 36591; 80053; 83735; 84439; 84443; 85025

== ENCOUNTER 2021-08-06 01:22 | Outpatient (RCR) | payer MEDICARE, BC, SELFPAY ==
[2021-07-25 10:50] LABS: Abs Immature Grans 0.13 10^3/uL (0.0-0.06); Absolute Basophil Count 0.06 10^3/uL (0.0-0.2); Absolute Eosinophil Count 0.05 10^3/uL (0.0-0.7); Absolute Neutrophil Count 10.92 10^3/uL (1.2-6.7); Basophils % 0.5; Eosinophils % 0.4; HCT 40.2 % (36.0-46.0); HGB 12.7 g/dL (11.2-15.7); Lymphocytes % 5.9; MCH 28.9 pg (27.0-33.0); MCHC 31.6 % (32.0-36.0); MCV 91.6 fL (80-95); MPV 8.7 fL (8.0-11.0); Monocytes % 5.6; Neutrophils % 86.6; Nucleated RBC 0 %; Platelet Count 381 10^3/uL (130-400); RBC 4.39 10^6/uL (3.93-5.22); RDW 15.4 % (11.7-14.6); RDW-SD 50.4 fL; WBC 12.61 10^3/uL (4.4-10.8)
[2021-07-25] MEDS: Normal Saline Flush 10 ML SYR IVP (10:50)
[2021-07-25 10:54] LABS: Absolute Lymphocyte Count 0.74 10^3/uL (1.2-3.4); Absolute Monocyte Count 0.71 10^3/uL (0.1-0.8)
[2021-07-25 11:12] LABS: ALT 27 U/L (14-59); AST 21 U/L (15-37); Albumin 3.3 g/dL (3.4-5.0); Alkaline Phosphatase 126 U/L (46-116); Anion Gap 6.9 mmol/L (3-11); BUN 12 mg/dL (7-18); Bilirubin, Total 0.5 mg/dL (0.2-1.0); CO2 34.1 mmol/L (21.0-32.0); CREATININE 1.2 mg/dL (0.55-1.02); Chloride 96 mmol/L (98-107); Estimated GFR 44.16 (mL/min/1.73m2); FREE T4 1.28 ng/dL (0.76-1.46); Glucose 136 mg/dL (74-106); Magnesium 2.1 mg/dL (1.8-2.4); Potassium 3.2 mmol/L (3.5-5.1); Sodium 137 mmol/L (136-145); TSH 0.72 uIU/mL (0.36-3.74); Total Protein 6.8 g/dL (6.4-8.2)
[2021-07-25 20:02] LABS: Hemoglobin A1C 6.8 % (<5.7)
[2021-08-06] MEDS: Normal Saline Flush 10 ML SYR IVP (09:12)
[2021-08-06 09:54] LABS: Abs Immature Grans 0.27 10^3/uL (0.0-0.06); Absolute Basophil Count 0.08 10^3/uL (0.0-0.2); Absolute Monocyte Count 0.84 10^3/uL (0.1-0.8); Basophils % 0.5; Eosinophils % 0.9; HCT 41.2 % (36.0-46.0); HGB 13.2 g/dL (11.2-15.7); Immature Grans % 1.7; Lymphocytes % 6.5; MCV 90.5 fL (80-95); Monocytes % 5.2; Neutrophils % 85.2; Nucleated RBC 0 %; Platelet Count 389 10^3/uL (130-400); RBC 4.55 10^6/uL (3.93-5.22); RDW 16.1 % (11.7-14.6); RDW-SD 52.9 fL
[2021-08-06 09:55] LABS: Absolute Eosinophil Count 0.15 10^3/uL (0.0-0.7); Absolute Lymphocyte Count 1.05 10^3/uL (1.2-3.4)
[2021-08-06 10:10] LABS: ALT 22 U/L (14-59); AST 21 U/L (15-37); Albumin 3.3 g/dL (3.4-5.0); Alkaline Phosphatase 120 U/L (46-116); BUN 19 mg/dL (7-18); Bilirubin, Total 0.4 mg/dL (0.2-1.0); CREATININE 1.3 mg/dL (0.55-1.02); Calcium 10.9 mg/dL (8.5-10.1); Chloride 97 mmol/L (98-107); Estimated GFR 40.26 (mL/min/1.73m2); Glucose 131 mg/dL (74-106); Magnesium 2.1 mg/dL (1.8-2.4); Potassium 3.7 mmol/L (3.5-5.1); Sodium 137 mmol/L (136-145); Total Protein 6.9 g/dL (6.4-8.2)
== END 2021-08-06 23:59 | disposition home or self-care (01) ==
LOC: INF 01:22
PROVIDERS: Registered Nurse; PCP Neuromusculoskeletal Medicine & OMM; Visit Provider Internal Medicine Medical Oncology
DX: R73.03 Prediabetes (principal); Z79.899 Other long term (current) drug therapy; Z45.2 Encounter for adjustment and management of vascular access device; C34.91 Malignant neoplasm of unspecified part of right bronchus or lung
CPT/HCPCS: 36591; 80053; 83036; 83735; 84439; 84443; 85025